=== PATIENT | male | born 1935 | race Caucasian/White ===

== ENCOUNTER 2016-12-28 11:45 | Inpatient (IN) ==
--- NOTE | 2016-12-28 12:16 | Emergency Department Note ---
Disposition Clinical Impression: Influenza, Confusion, Cardiac enzymes elevated Disposition: Admitted As Inpatient Condition: Fair Referrals: Krish Vega MD [Primary Care Provider] - Forms: ED Satisfaction Letter Time of Disposition: 14:08 Fall HPI - General Chief Complaint: ED Fall Stated Complaint: "think he has the flu", fall last pm, hit head Time Seen by Provider: 12/28/16 12:08 Source: patient Mode of arrival: ambulatory Limitations: no limitations Nursing Notes Reviewed: Yes Vital Signs Reviewed: Yes - History of Present Illness HPI Narrative: 81-year-old male who comes in apparently fell last night he was on the toilet leaning forward and fell forward. Patient was brought in by his family he states he doesn't feel he needs to be seen. Patient does not denies any symptoms. However he is talking about he feels that the end is near. He denies suicidal ideation homicidal ideation. There was some concern that he struck his head. Pt Subjective Complaint: fall Onset (ago): hour(s) Fall From: other (Off of toilet) Place Fall Occurred: home Loss of Consciousness: none Prolonged Down Time?: no Symptoms Prior to Fall: none - Related Data Allergies Allergy/AdvReac Type Severity Reaction Status Date / Time No Known Allergies Allergy Verified 12/28/16 12:21 Constitutional: Denies: fever, chills, weakness, weight change Eyes: Denies: eye pain, eye discharge, vision change ENT ED: Denies: ear pain, throat pain, dental pain, hearing loss, epistaxis, congestion, dysphagia Cardiovascular: Denies: chest pain, palpitations, dyspnea on exertion, edema, syncope Respiratory: Denies: cough, dyspnea, wheezes, hemoptysis, stridor Gastrointestinal: Denies: abdominal pain, nausea, vomiting, diarrhea, constipation, hematemesis, melena, hematochezia Genitourinary: Denies: urgency, dysuria, frequency, hematuria Musculoskeletal: Denies: back pain, neck pain, arthralgia, myalgia Integumentary: Denies: rash, abrasion, lesions Neurological: Reports: other (Confusion). Denies: headache, weakness, numbness , paresthesias, confusion, abnormal gait, vertigo Psychiatric: Denies: anxiety, depression, suicidal thoughts, homicidal thoughts , auditory hallucinations, visual hallucinations Endocrine: Denies: fatigue Hematological/Lymphatic: Denies: easy bleeding, easy bruising Allergic/Immunologic: Denies: facial swelling, urticaria Fall PMH - Past Medical History Medical history: Reports: diabetes Psychiatric history: Reports: no psych history - Social History Smoking Status: Former smoker Alcohol use: Reports: none Drug use: Reports: none Physical Exam - General Limitations: no limitations General appearance: alert - Head Head exam: atraumatic, normocephalic, normal inspection - Eye Eye exam: Present: normal appearance, PERRL, EOMI - ENT ENT exam: normal exam, normal oropharynx, mucous membranes moist - Neck Neck exam: Present: normal inspection, full ROM, trachea midline - Chest Chest inspection: Present: normal inspection, symmetric chest wall rise - Respiratory Respiratory exam: Present: normal lung sounds bilaterally - Cardiovascular Cardiovascular exam: Present: regular rate, normal rhythm, normal heart sounds - Abdominal Exam Abdominal exam: Present: soft, Non-Tender. Absent: tenderness, distention, guarding, rebound, rigidity - Extremities Exam Extremities exam: Present: normal inspection, full ROM. Absent: tenderness, pedal edema - Expanded Lower Extremity Exam Neurovascular/Tendon exam: Absent: motor deficit, sensory deficit, tendon deficit - Back Exam Back exam: Present: normal inspection, full ROM. Absent: tenderness - Neurological Exam Neurological exam: Present: alert, oriented X3 - Psychiatric Psychiatric exam: Present: normal affect, normal mood - Skin Skin exam: Present: warm, dry, intact, normal color Course - Reevaluation(s) Reevaluation #1: This is an 81-year-old who apparently fell off the toilet last night. Family states he has been acting right knee feeling may have the flu. Workup here in emergency department CT scan of the head was negative chest x-ray clear. KG shows no acute changes. His troponin is elevated 0.11 with a normal renal function. Patient denies chest pain. Flu swab was positive for influenza Time: 14:05 - Consultations Consultation #1: Discussed with Dr. Quintana, admit. Time: 14:05 Vital Signs Temperature 98.0 F 12/28/16 11:52 Pulse Rate 65 12/28/16 11:52 Respiratory Rate 15 12/28/16 11:52 Blood Pressure 128/67 12/28/16 11:52 O2 Sat by Pulse Oximetry 99 12/28/16 11:52 Temperature 98.0 F 12/28/16 11:52 Pulse Rate 71 12/28/16 13:54 Respiratory Rate 14 12/28/16 13:54 Blood Pressure 120/60 12/28/16 13:54 O2 Sat by Pulse Oximetry 93 L 12/28/16 13:54 Oxygen Delivery Oxygen Delivery Room Air Fall - Lab Data Lab results reviewed: Yes I reviewed the patient's lab results. Result diagrams: 12/28/16 13:22 12/28/16 13:22 Lab Results 12/28/16 12/28/16 12/28/16 Range/Units 13:22 13:22 13:22 WBC 5.4 (4.3-11.1) K/mcL RBC 4.41 (4.19-5.50) M/mcL Hgb 13.4 (12.9-16.9) g/dL Hct 41.7 (37.5-50.1) % MCV 94.6 (83.0-100.0) fL MCH 30.4 (28.0-33.3) pg MCHC 32.1 (31.6-35.5) g/dL RDW 14.7 H (11.5-14.5) % Plt Count 117 L (140-400) K/mcL MPV 10.3 (9.4-12.4) fL Immature Gran % 0.4 (0-4) % Seg Neutrophils % 72.8 % Lymphocytes % 14.2 % Monocytes % 12.4 % Eosinophils % 0.0 % Basophils % 0.2 % Neutrophils # 4.0 (1.6-8.9) K/mcL Lymphocytes # 0.8 (0.6-4.6) K/mcL Monocytes # 0.7 (0.0-1.3) K/mcL Eosinophils # 0.0 (0.0-0.6) K/mcL Basophils # 0.0 (0.0-0.2) K/mcL Sodium 141 (136-145) mEq/L Potassium 4.1 (3.5-4.5) mEq/L Chloride 105 (98-109) mEq/L Carbon Dioxide 28 (19-29) mEq/L BUN 20 (8-26) mg/dL Creatinine 1.11 (0.72-1.25) mg/dL Est GFR ( Amer) > 60 (> 60) Est GFR (Non-Af Amer) > 60 (> 60) BUN/Creatinine Ratio 18 (6-26) Glucose 153 H (70-99) mg/dL Calculated Osmolality 298 (280-300) Calcium 9.0 (8.6-10.8) mg/dL Troponin I 0.11 H* (0-0.03) ng/mL - Radiology Data Radiology results reviewed: Yes I reviewed the patient's radiology results. Chest X-Ray 12/28/16 12:09 IMPRESSION: No acute cardiopulmonary process. D/ / Tereso Sesay MD / Tereso Sesay MD Interpreting Provider: Tereso Sesay MD Head CT 12/28/16 12:09 IMPRESSION: No acute intracranial abnormality. Periventricular white matter ischemic changes. D/ / Sebastian Patrick MD / Sebastian Patrick MD Interpreting Provider: Sebastian Patrick MD - EKG Data EKG attestation: Yes I reviewed and interpreted this EKG. EKG shows normal: sinus rhythm Rate: normal Rhythm: NSR Interpretation: no acute changes
[2016-12-28 13:28] LABS: Basophils % 0.2 %; Hematocrit 41.7 % (37.5-50.1); Hemoglobin 13.4 g/dL (12.9-16.9); Immature Granulocytes % 0.4 % (0-4); Lymphocytes # 0.8 K/mcL (0.6-4.6); Lymphocytes % 14.2 %; Mean Corpuscular HGB Conc 32.1 g/dL (31.6-35.5); Mean Corpuscular Hemoglobin 30.4 pg (28.0-33.3); Mean Corpuscular Volume 94.6 fL (83.0-100.0); Mean Platelet Volume 10.3 fL (9.4-12.4); Monocytes # 0.7 K/mcL (0.0-1.3); Monocytes % 12.4 %; Platelet Count 117 K/mcL (140-400); Red Blood Count 4.41 M/mcL (4.19-5.50); Red Cell Distribution Width 14.7 % (11.5-14.5); Segmented Neutrophils % 72.8 %
[2016-12-28 13:43] LABS: BUN/Creatinine Ratio 18 (6-26); Blood Urea Nitrogen 20 mg/dL (8-26); Carbon Dioxide 28 mEq/L (19-29); Chloride 105 mEq/L (98-109); Glucose 153 mg/dL (70-99); Osmolality,Calculated 298 (280-300); Potassium 4.1 mEq/L (3.5-4.5); Sodium 141 mEq/L (136-145); eGFR For African Americans > 60 (> 60); eGFR For Non-African Americans > 60 (> 60)
[2016-12-28] MEDS ORDERED: Aspirin 81 MG TAB.CHEW PO ONE (14:03)
[2016-12-28] MEDS ORDERED: 0.9 % Sodium Chloride 1,000 ML IVC SCH (16:30)
--- NOTE | 2016-12-28 16:33 | Internal Med History&Physical ---
Date of Encounter: 12/28/16 Time of Encounter: 16:29 Assessment and Plan (1) NSTEMI (non-ST elevated myocardial infarction) Current visit: Yes Status: Acute Patient mentioned that he has chest pain only when he coughs. EKG shows no ischemic changes. He is denying active chest pain during my interview. Continue aspirin and beta blockers. Serial troponin. Cardiology services see the patient. Because of head trauma I am reluctant to start the patient on heparin, Especially that his pain appears non-anginal. Telemetry monitoring. code status yet to be determined (2) Acute bronchitis Current visit: Yes Status: Acute I will keep the patient on azithromycin 500 mg daily Qualifiers: Qualified Code(s): J20.9 - Acute bronchitis, unspecified (3) Influenza Current visit: Yes Status: Acute Tamiflu will be started 75 mg twice a day for 5 days Internal Medicine - H&P: HPI Chief complaint: fall History of present illness: Mr. Price is a 81 year old male with a history of dementia presents to the emergency room today because of a fall. Yesterday reportedly patient on the fall in the bathroom with head trauma. Patient has been sick the past 2 days. Family noted that he has been having productive cough. They also noted that he was warm to touch and more confused than usual. He mentioned that he is having chest pain only when he coughs. No reported history of coronary artery disease. Family mentioned that daughter and grandson were sick. Past Med Surg Social Fam HX - Past Medical History Medical history: diabetes Psychiatric history: no psych history - Social History Smoking Status: Former smoker Smokeless Tobacco Status: No Alcohol use: none Drug use: none Internal Medicine - H&P: Meds Atenolol [Tenormin] 75 mg PO DAILY 12/28/16 [History] Atorvastatin [Lipitor] 40 mg PO HS 12/28/16 [History] Cinnamon Bark [Cinnamon] 500 mg PO BID 12/28/16 [History] Donepezil [Aricept] 10 mg PO HS 12/28/16 [History] Memantine HCl 10 mg PO DAILY 12/28/16 [History] Pantoprazole Sodium [Protonix] 40 mg PO DAILY 12/28/16 [History] Sertraline [Zoloft] 50 mg PO DAILY 12/28/16 [History] Allergies No Known Allergies Allergy (Verified 12/28/16 12:21) All Systems PM: A 10-system review of systems was performed and is negative for pertinent findings except as documented above in the HPI. Review of systems: 10 point review of systems is negative except for HPI. - Constitutional Vitals: Temp Pulse Resp BP Pulse Ox 98.0 F 71 12 108/55 93 L 12/28/16 11:52 12/28/16 13:54 12/28/16 15:46 12/28/16 15:46 12/28/16 13:54 Exam: Gen.: patient is alert and oriented times 3 not in distress. Cardiac: normal S1 S2 no additional sounds or murmur. Chest: coarse breath sounds, no bronchial breathing abdomen: soft nontender nondistended normal bowel sounds no focal neurological deficits lower extremity lax calf muscles no swelling Internal Med - H&P Results - Labs CBC & Chem 7: 12/28/16 13:22 12/28/16 13:22
[2016-12-28] MEDS ORDERED: Azithromycin 500 MG in D5% in Water 250 ML IVPB SCH (17:00)
[2016-12-28] MEDS: Oseltamivir Phosphate 30 MG CAPSULE PO SCH (20:38)
[2016-12-28] MEDS ORDERED: Furosemide 40 MG/4 ML VIAL IVP ONE (23:35)
[2016-12-29 02:28] LABS: Basophils % 0.2 %; Hematocrit 41.5 % (37.5-50.1); Hemoglobin 13.3 g/dL (12.9-16.9); Immature Granulocytes % 0.2 % (0-4); Lymphocytes # 0.3 K/mcL (0.6-4.6); Lymphocytes % 4.9 %; Mean Corpuscular Hemoglobin 29.9 pg (28.0-33.3); Mean Corpuscular Volume 93.3 fL (83.0-100.0); Mean Platelet Volume 11.2 fL (9.4-12.4); Monocytes # 0.6 K/mcL (0.0-1.3); Monocytes % 8.7 %; Neutrophils # 5.4 K/mcL (1.6-8.9); Platelet Count 111 K/mcL (140-400); Red Blood Count 4.45 M/mcL (4.19-5.50); Red Cell Distribution Width 14.6 % (11.5-14.5)
[2016-12-29 02:43] LABS: BUN/Creatinine Ratio 18 (6-26); Blood Urea Nitrogen 22 mg/dL (8-26); Calcium 8.7 mg/dL (8.6-10.8); Carbon Dioxide 23 mEq/L (19-29); Chloride 104 mEq/L (98-109); Glucose 174 mg/dL (70-99); Magnesium 1.7 mg/dL (1.6-2.6); Osmolality,Calculated 300 (280-300); Potassium 3.6 mEq/L (3.5-4.5); Sodium 141 mEq/L (136-145); eGFR For African Americans > 60 (> 60); eGFR For Non-African Americans 58 (> 60)
[2016-12-29 02:52] LABS: Large Platelets Present (Not Present); Platelet Estimate Normal (Normal)
[2016-12-29] MEDS: Aspirin Enteric Coated 325 MG Tablet PO SCH (07:39)
[2016-12-29] MEDS: Levofloxacin 750 MG/150 ML 750 MG/150 ML BAG IVPB SCH (07:40)
[2016-12-29] MEDS: Oseltamivir Phosphate 30 MG CAPSULE PO SCH ×2 (07:40→20:03)
--- NOTE | 2016-12-29 09:22 | Cardiology Consult Note ---
<Andrew Jordan - Last Filed: 12/29/16 09:43> Date of Encounter: 12/29/16 Time of Encounter: 09:20 Assessment and Plan (1) Cardiac enzymes elevated Current Visit: Yes Status: Acute Likely due to elevated CPK. Repeat labs and continue fluid resuscitation. Echocardiogram today Repeat EKG if chest pain. (2) Confusion Current Visit: Yes Status: Acute Baseline. Management per primary. (3) Influenza Current Visit: Yes Status: Acute Tamiflu started by primary team. Management per primary. (4) Fall Current Visit: Yes Status: Acute Likely due to weakness, but will obtain Echocardiogram today. Qualifiers: Encounter type: initial encounter Qualified Code(s): W19.XXXA - Unspecified fall, initial encounter Discussion w patient/family: The assessment and plan as outlined above was discussed with the patient and/or family members who expressed understanding and agreement. All questions were answered. Thank you for involving us in the care of your patient. Please call with any questions. History of Present Illness Consult date: 12/29/16 Requesting physician: Ino Jack Consult reason: Elevated Cardiac Enzymes Chief complaint: Fall History of present illness: Mr. Price is a 81 year old male with history of diabetes, HTN, and dementia arrived to [facility] after sustaining a fall while sitting on toilet. Unknown down time. Patient's family brought patient to ED. There were concerns that the patient had not been feeling well and had been acting more confused for roughly 48 hours prior. Known exposure to to sick contacts. Patient admits to intermittent chest pain only illicited by cough and palpations. Denies any other chest pain or complaints other than "not feeling well". Patient has no known CAD or SD according to record or patient history. No recent Echo on record. No increase in exercise dyspnea or chest pain. Patient found to have elevated troponin in ED at 0.11 in ED which remained stable overnight with 2 more repeats. CPK remains elevated at 1300 today. Past Med Surg Social Fam HX - Past Medical History Attestation: Yes The following information was validated with the patient. Source: old records reviewed Medical history: diabetes Psychiatric history: no psych history - Past Surgical History Surgical History: appendectomy - Social History Smoking Status: Former smoker Smokeless Tobacco Status: No Alcohol use: none Drug use: none Medications and Allergies Atenolol [Tenormin] 75 mg PO DAILY 12/28/16 [History] Atorvastatin [Lipitor] 40 mg PO HS 12/28/16 [History] Cinnamon Bark [Cinnamon] 500 mg PO BID 12/28/16 [History] Donepezil [Aricept] 10 mg PO HS 12/28/16 [History] Memantine HCl 10 mg PO DAILY 12/28/16 [History] Pantoprazole Sodium [Protonix] 40 mg PO DAILY 12/28/16 [History] Sertraline [Zoloft] 50 mg PO DAILY 12/28/16 [History] Allergies No Known Allergies Allergy (Verified 12/28/16 12:21) All Systems Review: A 10-system review of systems was performed and is negative for pertinent findings except as documented above in the HPI. - Constitutional Constitutional: fatigue - Respiratory Respiratory: cough Physical Examination Vital Signs, Last 4 Hours Temp Pulse Resp BP Pulse Ox 12/29/16 07:41 98.9 F 84 16 98/54 94 L General: Conversant, No Apparent Distress HEENT: Atraumatic, Mucus Membranes Moist Neck: No JVD Cardiac: Reg Rate and Rhythm, Normal S1 and S2, No Murmur Lungs: Other (Coarse breath sounds bilaterally) Neuro: Alert and responsive Abdomen: Soft, Non-Tender Skin: No rashes noted on visualized skin Musculoskeletal: Other (Mild costosternal tenderness bilaterally) Extremities: No Clubbing, No Cyanosis, No Edema Results 12/29/16 01:58 12/29/16 01:58 Lab Results 12/28/16 12/29/16 12/29/16 18:37 01:58 01:58 WBC 6.3 Hgb 13.3 Hct 41.5 Plt Count 111 L Sodium 141 Potassium 3.6 Chloride 104 Carbon Dioxide 23 BUN 22 Creatinine 1.20 Glucose 174 H Calcium 8.7 Magnesium 1.7 Troponin I 0.12 H* 12/29/16 01:58 WBC Hgb Hct Plt Count Sodium Potassium Chloride Carbon Dioxide BUN Creatinine Glucose Calcium Magnesium Troponin I 0.11 H* - Imaging and Cardiology Chest Xray: report reviewed, image reviewed Echo: pending - EKG Interpretation EKG results cardiology: personally reviewed, normal ECG, sinus rhythm, no diagnostic ischemia Consult Discharge Plan - Plan Referrals: Krish Vega MD [Primary Care Provider] - 01/06/17 2:40 pm - Attending Attestation I examined this patient and my medical decision-making was reviewed with the Resident Physician. I agree with the documented findings, disposition and treatment plan as described except to the extent set forth below. <Marta Sahu - Last Filed: 12/29/16 15:34> Date of Encounter: 12/29/16 Assessment and Plan Discussion w patient/family: The assessment and plan as outlined above was discussed with the patient and/or family members who expressed understanding and agreement. All questions were answered. Thank you for involving us in the care of your patient. Please call with any questions. History of Present Illness History of present illness: Mr. Price is a 81 year old male All Systems Review: A 10-system review of systems was performed and is negative for pertinent findings except as documented above in the HPI. Physical Examination Vital Signs, Last 4 Hours Temp Pulse Resp BP Pulse Ox 12/29/16 11:29 97.9 F 63 20 101/59 97 Results 12/29/16 01:58 12/29/16 01:58 Lab Results 12/28/16 12/29/16 12/29/16 18:37 01:58 01:58 WBC 6.3 Hgb 13.3 Hct 41.5 Plt Count 111 L Sodium 141 Potassium 3.6 Chloride 104 Carbon Dioxide 23 BUN 22 Creatinine 1.20 Glucose 174 H Calcium 8.7 Magnesium 1.7 Troponin I 0.12 H* 12/29/16 01:58 WBC Hgb Hct Plt Count Sodium Potassium Chloride Carbon Dioxide BUN Creatinine Glucose Calcium Magnesium Troponin I 0.11 H* - Attending Attestation I examined this patient and my medical decision-making was reviewed with the SNAP SHEARER/PA/Advanced Practice Nurse/Resident Physician. I agree with the documented findings, disposition and treatment plan. Mr. Price presented with confusion, fall with unknown downtime. His CPK is elevated suggesting increased down time and myositis. Incidentally, also has mild, flat and adynamic elevation of troponin most consistent with the fall and demand ischemia. We are awaiting an echo for review of structure/function. Telemetry was reviewed which demonstrates no findings that would suggest a cause for his fall.
--- NOTE | 2016-12-29 09:51 | Internal Med Progress Note ---
Date of Encounter: 12/29/16 Time of Encounter: 08:45 - Assessment and plan (1) Influenza Current Visit: Yes Status: Acute Assessment and plan: Positive for FLu A. Continue Tamiflu. On examination, patient appears dehydrated. We will initiate IV fluids. There appears to have been Some concern overnight for possible aspiration versus fluid overload as the patient' s IV fluids were stopped and he was given a one-time dose of IV Lasix. Repeat chest x-ray negative. We will initiate IV fluids and add mucolytics and monitor. (2) Acute respiratory failure Current Visit: Yes Status: Acute Assessment and plan: Patient is not on oxygen at home and is currently on 4 L per nasal cannula. We will continue bronchodilators, mucolytics, levofloxacin, and Tamiflu for his flu. Chest x-ray unremarkable. ITS Impressions Chest X-Ray 12/28/16 12:09 IMPRESSION: No acute cardiopulmonary process. D/ / Tereso Sesay MD / Tereso Sesay MD Interpreting Provider: Tereso Sesay MD Chest X-Ray 12/28/16 23:33 IMPRESSION: 1. No acute cardiopulmonary disease. Specifically, no evidence of aspiration. D/ / 12/29/2016 05:23:29 Rosa Dhaliwal MD / [facility]osi Interpreting Provider: Rosa Dhaliwal MD (3) Acute bronchitis Current Visit: Yes Status: Acute (4) Fall Current Visit: Yes Status: Acute Assessment and plan: OT and PT consultations are pending. He currently lives at home with his grandson Benji. Qualifiers: Encounter type: initial encounter Qualified Code(s): W19.XXXA - Unspecified fall, initial encounter (5) Generalized weakness Current Visit: Yes Status: Acute Assessment and plan: During my examination with him, he is alert and oriented 3 however he was unable to control his head and his head was bobbing and falling to the right during most of our conversation. Concern for generalized weakness and possible dysphagia. Speech therapy brought on board. OT and PT consultations placed. We will appreciate their recommendations. Of note, he appears unkempt and they have been to bed bugs found on this patient. director learning services on board. (6) Code status needs review Current Visit: Yes Status: Resolved Assessment and plan: I had a lengthy discussion with the alert and oriented 3 patient. He states that when it is this time, God will take him. He does not want any aggressive measures and he wants to be kept comfortable. Specifically, he does not want to be intubated, does not want chest compressions. Updated to DNR CC. (7) Cardiac enzymes elevated Current Visit: Yes Status: Acute Assessment and plan: Adynamic and stable, cardiology on board. Patient denies chest pain at this time. (8) Confusion Current Visit: Yes Status: Resolved Assessment and plan: Alert and oriented 3 during my interaction with him. Head CT negative. No leukocytosis. Mild hypotension noted, IV fluids initiated. Heart rate stable. ITS Impressions Head CT 12/28/16 12:09 IMPRESSION: No acute intracranial abnormality. Periventricular white matter ischemic changes. D/ / Sebastian Patrick MD / Sebastian Patrick MD Interpreting Provider: Sebastian Patrick MD (9) NSTEMI (non-ST elevated myocardial infarction) Current Visit: Yes Status: Acute Assessment and plan: Low suspicion. Cardiology on board. Appreciate their recommendations. Echocardiogram pending. - Subjective Interval history: Patient seen and examined. On examination, patient sitting upright in bed. Patient initially asleep and awaken easily to voice. He currently denies pain at this time. He denies shortness of breath above his norm. He continues to endorse a harsh hacking cough. - Constitutional Vitals: Temp Pulse Resp BP Pulse Ox 98.9 F 84 16 98/54 94 L 12/29/16 07:41 12/29/16 07:41 12/29/16 07:41 12/29/16 07:41 12/29/16 07:41 General appearance: Present: mild distress, A&O X 3, pleasant, answers questions appropriately - Head Head exam: Present: atraumatic, normocephalic - Eye Eye exam: Present: PERRL, conjuntiva pink, sclera anicteric Pupils: Present: PERRL - Neck Neck exam general surgery: Present: supple, trachea midline. Absent: lymphadenopathy - Respiratory Respiratory exam: Present: decreased breath sounds. Absent: accessory muscle use, rales, respiratory distress, rhonchi, wheezes - Cardiovascular Cardiovascular exam: Present: RRR, +S1, +S2. Absent: diastolic murmur, gallop, rubs, systolic murmur - GI/Abdominal GI/Abdominal exam: Present: normal bowel sounds, soft, no peritoneal signs. Absent: distended, tenderness - Extremities Exam Extremities exam: Present: warm, radial pulses palpable and symetrical. Absent : calf tenderness, cyanotic, pedal edema - Neurological Exam Neurological exam: Present: alert, CN II-XII intact, oriented X3, no focal deficits, strengths equal and symetr throughout. Absent: pronater drift, facial droop, speech deficit - Skin Skin exam: Present: dry, intact, pallor, warm Internal Medicine: Result - Labs CBC & Chem 7: 12/29/16 01:58 12/29/16 01:58 Labs: Short CBC 12/29/16 Range/Units 01:58 WBC 6.3 (4.3-11.1) K/mcL Hgb 13.3 (12.9-16.9) g/dL Hct 41.5 (37.5-50.1) % Plt Count 111 L (140-400) K/mcL Neutrophils # 5.4 (1.6-8.9) K/mcL BMP 12/29/16 01:58 Sodium 141 Potassium 3.6 Chloride 104 Carbon Dioxide 23 BUN 22 Creatinine 1.20 Glucose 174 H Calcium 8.7 Cardiac Enzymes 12/28/16 12/29/16 Range/Units 18:37 01:58 Troponin I 0.12 H* 0.11 H* (0-0.03) ng/mL - Impressions Impressions Chest X-Ray 12/28/16 23:33 IMPRESSION: 1. No acute cardiopulmonary disease. Specifically, no evidence of aspiration. D/ / 12/29/2016 05:23:29 Rosa Dhaliwal MD / [email or web address] Interpreting Provider: Rosa Dhaliwal MD - VTE Documentation of Mechanical Device: Intermittent pneumatic compression device Consult Discharge Plan - Plan Referrals: Krish Vega MD [Primary Care Provider] - 01/06/17 2:40 pm
[2016-12-29 10:15] LABS: Bilirubin,Urine Negative (Negative); Blood,Urine Trace (Negative); Clarity,Urine Cloudy (Clear); Color,Urine Yellow (Yellow); Glucose,Urine (UA) Normal (Normal); Ketones,Urine Trace mg/dL (Negative); Leukocyte Esterase,Urine Small (Negative); Nitrite,Urine Negative (Negative); PH,Urine 5.5 pH Units (5.0-8.0); Protein,Urine Trace mg/dL (Neg-Trace); Specific Gravity,Urine 1.014 (1.010-1.025); Urobilinogen,Urine Normal (Normal)
[2016-12-29 10:18] LABS: Bacteria,Urine None Seen per hpf (None-Few); Hyaline Casts,Urine None Seen per lpf (None-Few); Squamous Epithelial Cell,Urine Many per lpf (None-Few)
[2016-12-29] MEDS ORDERED: Benzonatate 100 MG CAPSULE PO PRN (10:38)
[2016-12-29] MEDS ORDERED: Acetaminophen 325 MG TABLET PO PRN (10:39)
[2016-12-29] MEDS ORDERED: *HR* Morphine 2 MG/ML SYRINGE IVP PRN (10:39)
[2016-12-29] MEDS: 0.9 % Sodium Chloride 1,000 ML IVC SCH ×2 (10:53→20:03)
[2016-12-29] MEDS ORDERED: Perflutren Lipid Microsphere 1.3 ML in 0.9 % Sodium Chloride 8.7 ML IVP ONE (17:13)
[2016-12-30 05:23] LABS: Hematocrit 35.1 % (37.5-50.1); Hemoglobin 11.3 g/dL (12.9-16.9); Immature Platelets 9.8 % (1.1-6.1); Mean Corpuscular HGB Conc 32.2 g/dL (31.6-35.5); Mean Corpuscular Volume 93.1 fL (83.0-100.0); Mean Platelet Volume 11.6 fL (9.4-12.4); Red Blood Count 3.77 M/mcL (4.19-5.50); Red Cell Distribution Width 14.5 % (11.5-14.5)
[2016-12-30 05:47] LABS: Platelet Count 93 K/mcL (140-400)
[2016-12-30 05:50] LABS: Lymphocytes # 0.8 K/mcL (0.6-4.6); Monocytes # 0.1 K/mcL (0.0-1.3); Neutrophils # 5.7 K/mcL (1.6-8.9); Platelet Estimate Decreased (Normal)
[2016-12-30 05:51] LABS: Large Platelets Present (Not Present); Reactive Lymphocytes Present (Not Present)
[2016-12-30 05:57] LABS: BUN/Creatinine Ratio 22 (6-26); Blood Urea Nitrogen 21 mg/dL (8-26); Calcium 8.4 mg/dL (8.6-10.8); Carbon Dioxide 29 mEq/L (19-29); Chloride 105 mEq/L (98-109); Glucose 99 mg/dL (70-99); Osmolality,Calculated 293 (280-300); Potassium 3.4 mEq/L (3.5-4.5); Sodium 140 mEq/L (136-145); eGFR For African Americans > 60 (> 60); eGFR For Non-African Americans > 60 (> 60)
[2016-12-30] MEDS: Levofloxacin 750 MG/150 ML 750 MG/150 ML BAG IVPB SCH (07:20)
--- NOTE | 2016-12-30 07:21 | ECHO - Doppler Report ---
Echo with Imaging Enhancement Agent Name: Louis Price Date of Study: 12/29/2016 Date: 1935 Ht: 64.0 in Medical Record#: [id number] Age: 81 Wt: 180.0 lb Gender: Male BSA: 1.87 Order #: [id number] Location: [facility] Room #: 3B12 Reading Physician: Pipo Narayan MD, [facility] Mechan[employer] Supervisor: Nellie Vargas RVT Ordering Physician: Andrew Jordan DO Primary Physician: Krish Vega MD Indications: Elevated cardiac enzymes Impressions: Technically sub-optimal due to poor echocardiographic windows. Echo contrast was used. Normal left ventricular size and systolic function, LVEF 60-65%. Mild left ventricular diastolic dysfunction. Right ventricle was not well visualized. Appears grossly normal in size and function. Cardiac valves were not well visualized. No evidence of significant valvular dysfunction. Unable to estimate RVSP due to lack of TR jet. Left Ventricular Wall Motion: Rest Echo Findings All wall segments showed normal motion. Findings: Study Quality * Technically sub-optimal due to poor echocardiographic windows. Echo contrast was used. ECG Findings * Normal sinus rhythm. Left Ventricle * Normal left ventricular size and systolic function, LVEF 60-65%. * Normal LV wall thickness. * Mild left ventricular diastolic dysfunction. Right Ventricle * Right ventricle was not well visualized. Appears grossly normal in size and function. Left Atrium * Normal left atrial size. Right Atrium * Normal right atrial size. Aorta * Normally sized aortic root. Pericardium * There is no pericardial effusion present. IVC * The IVC is not well evaluated. Aortic Valve * Aortic valve not well visualized. * Normal aortic valve function. Mitral Valve * Mitral valve not well visualized. * Normal mitral valve structure. Tricuspid Valve * Tricuspid valve not well visualized. * Normal tricuspid valve function. * Unable to estimate RVSP due to lack of TR jet. Pulmonic Valve * Pulmonic valve not well visualized. * Normal pulmonic valve function. History Hypertension Diabetes Contrast: Definity 1.3 ml in 8.7 ml of saline 2 ml. Measurements: BP: 119/ 63 2D Normal Values RVIDd: 3.20 cm IVSd: .90 cm 0.6 - 1.0 cm LVIDd: 4.90 cm 3.7 - 5.6 cm LVPWd: .90 cm 0.6 - 1.1 cm LVIDs: 2.70 cm 1.5 - 3.6 cm AO: 3.60 cm < 4.0 cm LA volume: 42 Mitral Valve Peak E:.60 m/sec Peak A:.80 m/sec E/A Ratio:0.75 Updated by Pipo Narayan MD, [facility] on 12/30/2016 7:14:19 AM electronically signed on 12/30/2016 7:15:31 AM with status of Final Wall Motion Jiang: 1=Normal, 2=Hypokinesis, 3=Akinesis, 4=Dyskinesis, 5=Aneurysmal, 6=Hyperkinetic, X=Not Visualized (Blank)=Missing
[2016-12-30] MEDS: Aspirin Enteric Coated 325 MG Tablet PO SCH (07:26)
[2016-12-30] MEDS: Oseltamivir Phosphate 30 MG CAPSULE PO SCH ×2 (07:26→20:03)
[2016-12-30 08:29] LABS: Creatine Kinase 1462 Units/L (30-200)
--- NOTE | 2016-12-30 09:28 | Event Note ---
<Andrew Jordan - Last Filed: 12/30/16 09:24> Date of Encounter: 12/30/16 Time of Encounter: 09:24 - Cardiology Event Note Patient's echo reviewed. EF 60-65% with no abnormal wall motion. Mild Left ventricular diastolic failure. Repeat EKG reviewed this AM without major changes from admission EKG. No signs of ischemia noted. Rhythm strips from overnight reviewed without major signs of ischemia or dysrhythmias noted. We do not feel as though this is cardiac in origin. We will sign off care at this time. Please call with any questions or concerns. We appreciate the consult and care for the patient. <Marta Sahu - Last Filed: 12/30/16 13:47> Date of Encounter: 12/30/16 - Cardiology Event Note Agree with Resident's note. Patient's presentation does not appear to be associated with a cardiac etiology. LV systolic function remains normal. Troponins do not represent ACS. We will sign off at this time.
[2016-12-30] MEDS: 0.9 % Sodium Chloride 1,000 ML IVC SCH ×3 (10:26→18:27)
--- NOTE | 2016-12-30 12:07 | Internal Med Progress Note ---
Date of Encounter: 12/30/16 Time of Encounter: 08:30 - Assessment and plan (1) Rhabdomyolysis Current Visit: Yes Status: Acute Assessment and plan: Likely secondary to dehydration and influenza. CK continues to slowly climb, we will increase IV fluids. Awaiting placement for inpatient rehabilitation. There was concern for possible fluid overload during the patient's first night of admission. I personally reviewed the CXR from that night and there were no findings to suggest fluid overload. His echocardiogram revealed ejection fraction of 60-65% with mild diastolic dysfunction. We will increase his IV fluids and monitor closely. (2) Influenza Current Visit: Yes Status: Acute Assessment and plan: Positive for FLu A. Continue Tamiflu. On examination, patient appears dehydrated but better than yesterday; will increase IV fluids. I personally reviewed his chest xray from 12/28/16 late at night and there were no findings to suggest fluid overload. (3) Acute respiratory failure Current Visit: Yes Status: Acute Assessment and plan: Patient is not on oxygen at home and was on 4 L per nasal cannula and has not been titrated down to 2L. we will continue to wean his oxygen as tolerated. We will continue bronchodilators, mucolytics, levofloxacin, and Tamiflu for his flu. Chest x-ray unremarkable. ITS Impressions Chest X-Ray 12/28/16 12:09 IMPRESSION: No acute cardiopulmonary process. D/ / Tereso Sesay MD / Tereso Sesay MD Interpreting Provider: Tereso Sesay MD Chest X-Ray 12/28/16 23:33 IMPRESSION: 1. No acute cardiopulmonary disease. Specifically, no evidence of aspiration. D/ / 12/29/2016 05:23:29 Rosa Dhaliwal MD / [facility] Interpreting Provider: Rosa Dhaliwal MD (4) Acute bronchitis Current Visit: Yes Status: Acute (5) Fall Current Visit: Yes Status: Acute Assessment and plan: OT and PT consultations recommending ECF placement. Patient was initially resistant to however his son Romero was able to convince him to be placed. He currently lives at home with his daughter Kisha and his grandson Benji. Qualifiers: Encounter type: initial encounter Qualified Code(s): W19.XXXA - Unspecified fall, initial encounter (6) Generalized weakness Current Visit: Yes Status: Acute Assessment and plan: During my examination with him, he is alert and oriented 3 however he was unable to control his head and his head was bobbing and falling to the right during most of our conversation. Concern for generalized weakness and possible dysphagia so speech therapy brought on board and have recommended soft diet with thickened liquids. He is unsafe to be discharged home pending [facility]. Of note, he appears unkempt and they have been to bed bugs found on this patient. transportation services representative on board. (7) Code status needs review Current Visit: Yes Status: Resolved Assessment and plan: I had a lengthy discussion with the alert and oriented 3 patient. He states that when it is this time, God will take him. He does not want any aggressive measures and he wants to be kept comfortable. Specifically, he does not want to be intubated, does not want chest compressions. Updated to DNR CC. (8) Cardiac enzymes elevated Current Visit: Yes Status: Ruled-out Assessment and plan: Adynamic and stable, cardiology on board and have since signed off. Patient denies chest pain at this time. (9) Confusion Current Visit: Yes Status: Resolved Assessment and plan: Alert and oriented 3 during my interaction with him. Head CT negative. No leukocytosis. Mild hypotension noted, IV fluids initiated. Heart rate stable. ITS Impressions Head CT 12/28/16 12:09 IMPRESSION: No acute intracranial abnormality. Periventricular white matter ischemic changes. D/ / Sebastian Patrick MD / Sebastian Patrick MD Interpreting Provider: Sebastian Patrick MD (10) NSTEMI (non-ST elevated myocardial infarction) Current Visit: Yes Status: Resolved Assessment and plan: Low suspicion. Cardiology on board and have signed off. Echocardiogram unremarkable with ejection fraction of 60-65% and mild diastolic dysfunction. Echocardiogram with imaging enhancement agent impressions: Technically suboptimal due to poor echocardiographic windows. Echo contrast was used. Normal left ventricular size and systolic function, LVEF 60-65%. Mild left ventricular diastolic dysfunction. Right ventricle was not well visualized. Appears grossly normal in size and function. Cardiac valves were not well visualized. No evidence of significant valvular dysfunction. Unable to estimate RVSP due to lack of TR jet. - Subjective Interval history: Patient seen and examined. On examination, patient sitting upright in bed eating his breakfast. His son is at the bedside. His son states that he has not had regular contact with his dad but is going to become more involved in his care. Patient denies pain at this time. He states he feels "okay." He is endorsing a normal appetite. He denies shortness of breath. - Constitutional Vitals: Temp Pulse Resp BP Pulse Ox 98.5 F 64 17 105/51 95 12/30/16 11:17 12/30/16 11:17 12/30/16 11:17 12/30/16 11:17 12/30/16 11:17 General appearance: Present: A&O X 3, pleasant, no acute distress, answers questions appropriately - Head Head exam: Present: atraumatic, normocephalic - Eye Eye exam: Present: PERRL, conjuntiva pink, sclera anicteric Pupils: Present: PERRL - Neck Neck exam general surgery: Present: supple, trachea midline. Absent: lymphadenopathy - Respiratory Respiratory exam: Present: CTAB. Absent: accessory muscle use, rales, respiratory distress, rhonchi, wheezes - Cardiovascular Cardiovascular exam: Present: RRR, +S1, +S2. Absent: diastolic murmur, gallop, rubs, systolic murmur - GI/Abdominal GI/Abdominal exam: Present: normal bowel sounds, soft, no peritoneal signs. Absent: distended, tenderness - Extremities Exam Extremities exam: Present: warm, radial pulses palpable and symetrical. Absent : calf tenderness, cyanotic, pedal edema - Neurological Exam Neurological exam: Present: alert, CN II-XII intact, oriented X3, no focal deficits, strengths equal and symetr throughout. Absent: pronater drift, facial droop, speech deficit - Expanded Neurological Exam Neurological exam expanded: Present: tremor - Skin Skin exam: Present: dry, intact, pallor, warm Internal Medicine: Result - Labs CBC & Chem 7: 12/30/16 03:57 12/30/16 03:57 Labs: Short CBC 02/16/17 Range/Units 03:57 WBC 6.6 (4.3-11.1) K/mcL Hgb 11.3 L D (12.9-16.9) g/dL Hct 35.1 L (37.5-50.1) % Plt Count 93 L (140-400) K/mcL Neutrophils # 5.7 (1.6-8.9) K/mcL BMP 12/30/16 03:57 Sodium 140 Potassium 3.4 L Chloride 105 Carbon Dioxide 29 BUN 21 Creatinine 0.95 Glucose 99 Calcium 8.4 L - Impressions Impressions Chest X-Ray 12/28/16 23:33 IMPRESSION: 1. No acute cardiopulmonary disease. Specifically, no evidence of aspiration. D/ / 12/29/2016 05:23:29 Rosa Dhaliwal MD / [facility] Interpreting Provider: Rosa Dhaliwal MD - [facility] Documentation of Mechanical Device: Intermittent pneumatic compression device Consult Discharge Plan - Plan Referrals: Krish Vega MD [Primary Care Provider] - 01/06/17 2:40 pm
[2016-12-30] MEDS: *HR* HYDROcodone/Acet 5/325 mg TABLET PO PRN (15:05)
--- NOTE | 2016-12-30 19:25 | Electrocardiograph Report ---
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
--- NOTE | 2016-12-30 19:38 | Electrocardiograph Report ---
[address] [address] Test Date: 2016-12-28 Pat Name: Louis Price Department: 113 Room: 3B12 Gender: M Research Analyst: : 1935 Requested By: Lisa Cardenas Order Number: [id number] Reading MD: Krish Santoyo Measurements Intervals [place] Rate: 75 P: [place]: 0 QRS: 237 QRSD: 111 T: -66 QT: 421 QTc: 449 Interpretive Statements UNABLE TO BE INTERPRETED Electronically Signed On 12-30-2016 19:36:52 EST by Krish Santoyo
--- NOTE | 2016-12-30 20:07 | Electrocardiograph Report ---
[place] [address] Test Date: 2016-12-30 Pat Name: Louis Price Department: 113 Room: 3B12 Gender: M Client Account Assistant: : 1935 Requested By: Andrew Jordan Order Number: [id number] Reading MD: Krish Santoyo Measurements Intervals [place] Rate: 63 P: 5 CO: 175 QRS: -15 QRSD: 72 T: -2 QT: 433 QTc: 440 Interpretive Statements SINUS RHYTHM LOW QRS VOLTAGE IN EXTREMITY LEADS POSSIBLE INFERIOR MYOCARDIAL INFARCTION, PROBABLY OLD Electronically Signed On 12-30-2016 20:06:10 EST by Krish Santoyo
[2016-12-31] MEDS: 0.9 % Sodium Chloride 1,000 ML IVC SCH ×3 (01:16→18:03)
[2016-12-31 05:41] LABS: Hematocrit 33.3 % (37.5-50.1); Hemoglobin 10.7 g/dL (12.9-16.9); Mean Corpuscular HGB Conc 32.1 g/dL (31.6-35.5); Red Cell Distribution Width 14.2 % (11.5-14.5)
[2016-12-31 05:44] LABS: Immature Platelets 7.9 % (1.1-6.1); Mean Corpuscular Hemoglobin 29.8 pg (28.0-33.3); Mean Corpuscular Volume 92.8 fL (83.0-100.0); Mean Platelet Volume 11.2 fL (9.4-12.4); Red Blood Count 3.59 M/mcL (4.19-5.50)
[2016-12-31 05:49] LABS: BUN/Creatinine Ratio 16 (6-26); Blood Urea Nitrogen 13 mg/dL (8-26); Carbon Dioxide 25 mEq/L (19-29); Chloride 109 mEq/L (98-109); Creatine Kinase 676 Units/L (30-200); Glucose 123 mg/dL (70-99); Magnesium 1.5 mg/dL (1.6-2.6); Osmolality,Calculated 293 (280-300); Potassium 3.7 mEq/L (3.5-4.5); Sodium 141 mEq/L (136-145); eGFR For African Americans > 60 (> 60); eGFR For Non-African Americans > 60 (> 60)
[2016-12-31 05:54] LABS: Platelet Count 95 K/mcL (140-400)
[2016-12-31 06:41] LABS: Lymphocytes # 1.1 K/mcL (0.6-4.6); Monocytes # 0.2 K/mcL (0.0-1.3); Neutrophils # 3.1 K/mcL (1.6-8.9); Platelet Estimate Decreased (Normal)
[2016-12-31 06:42] LABS: Large Platelets Present (Not Present); Reactive Lymphocytes Present (Not Present)
[2016-12-31] MEDS: Levofloxacin 750 MG/150 ML 750 MG/150 ML BAG IVPB SCH (09:37)
[2016-12-31] MEDS: *HR* HYDROcodone/Acet 5/325 mg TABLET PO PRN (09:43)
[2016-12-31] MEDS: Oseltamivir Phosphate 30 MG CAPSULE PO SCH ×2 (09:44→22:26)
[2016-12-31] MEDS: Aspirin Enteric Coated 325 MG Tablet PO SCH (09:44)
--- NOTE | 2016-12-31 10:38 | Internal Med Progress Note ---
Date of Encounter: 12/31/16 Time of Encounter: 08:45 - Assessment and plan (1) Rhabdomyolysis Current Visit: Yes Status: Acute Assessment and plan: Likely secondary to dehydration and influenza. CK has now decreased. Patient is taking a 100% of his meals. IV fluids were increased yesterday, will decrease today. Patient denies pain at this time. No lower extremity edema or signs of fluid overload. Lungs clear. Awaiting placement for inpatient rehabilitation. There was concern for possible fluid overload during the patient's first night of admission. I personally reviewed the CXR from that night and there were no findings to suggest fluid overload. His echocardiogram revealed ejection fraction of 60-65% with mild diastolic dysfunction. (2) Influenza Current Visit: Yes Status: Acute Assessment and plan: Positive for FLu A. Continue Tamiflu. On examination, patient appears better hydrated and is eating 100% of his meals. Awaiting placement to inpatient rehabilitation. He should not safe to be discharged in the meantime given elevated risk of fall (3) Acute respiratory failure Current Visit: Yes Status: Acute Assessment and plan: Patient is not on oxygen at home and was on 4 L per nasal cannula and has not been titrated down to 2L. we will continue to wean his oxygen as tolerated. We will continue bronchodilators, mucolytics, levofloxacin, and Tamiflu for his flu. Chest x-ray unremarkable. ITS Impressions Chest X-Ray 12/28/16 12:09 IMPRESSION: No acute cardiopulmonary process. D/ / Tereso Sesay MD / Tereso Sesay MD Interpreting Provider: Tereso Sesay MD Chest X-Ray 12/28/16 23:33 IMPRESSION: 1. No acute cardiopulmonary disease. Specifically, no evidence of aspiration. D/ / 12/29/2016 05:23:29 Rosa Dhaliwal MD / [facility] Interpreting Provider: Rosa Dhaliwal MD (4) Acute bronchitis Current Visit: Yes Status: Acute (5) Fall Current Visit: Yes Status: Acute Assessment and plan: OT and PT consultations recommending ECF placement. Patient was initially resistant to however his son Romero was able to convince him to be placed. He currently lives at home with his daughter Kisha and his grandson Benji. Given his acute influenza and rhabdo suspicion, patient will need to remain inpatient and admitted pending placement. Qualifiers: Encounter type: initial encounter Qualified Code(s): W19.XXXA - Unspecified fall, initial encounter (6) Generalized weakness Current Visit: Yes Status: Acute Assessment and plan: During my examination with him, he is alert and oriented 3 however he was unable to control his head and his head was bobbing and falling to the right during most of our conversation. Concern for generalized weakness and possible dysphagia so speech therapy brought on board and have recommended soft diet with thickened liquids. He is unsafe to be discharged home pending placement to [facility]. Of note, he appears unkempt and they have been to bed bugs found on this patient. guest services director on board. (7) Code status needs review Current Visit: Yes Status: Resolved Assessment and plan: I had a lengthy discussion with the alert and oriented 3 patient. He states that when it is this time, God will take him. He does not want any aggressive measures and he wants to be kept comfortable. Specifically, he does not want to be intubated, does not want chest compressions. Updated to DNR CC. (8) Cardiac enzymes elevated Current Visit: Yes Status: Ruled-out Assessment and plan: Adynamic and stable, cardiology on board and have since signed off. Patient denies chest pain at this time. (9) Confusion Current Visit: Yes Status: Resolved Assessment and plan: Alert and oriented 3 during my interaction with him. Head CT negative. No leukocytosis. Mild hypotension noted, IV fluids continued. Heart rate stable. ITS Impressions Head CT 12/28/16 12:09 IMPRESSION: No acute intracranial abnormality. Periventricular white matter ischemic changes. D/ / Sebastian Patrick MD / Sebastian Patrick MD Interpreting Provider: Sebastian Patrick MD (10) NSTEMI (non-ST elevated myocardial infarction) Current Visit: Yes Status: Resolved Assessment and plan: Low suspicion. Cardiology on board and have signed off. Echocardiogram unremarkable with ejection fraction of 60-65% and mild diastolic dysfunction. Echocardiogram with imaging enhancement agent impressions: Technically suboptimal due to poor echocardiographic windows. Echo contrast was used. Normal left ventricular size and systolic function, LVEF 60-65%. Mild left ventricular diastolic dysfunction. Right ventricle was not well visualized. Appears grossly normal in size and function. Cardiac valves were not well visualized. No evidence of significant valvular dysfunction. Unable to estimate RVSP due to lack of TR jet. - Subjective Interval history: Patient seen and examined. On examination, patient sitting upright in bed eating his breakfast. He denies pain at this time. He denies shortness of breath. - Constitutional Vitals: Temp Pulse Resp BP Pulse Ox 97.4 F L 61 20 104/59 95 12/31/16 09:02 12/31/16 09:02 12/31/16 09:02 12/31/16 09:02 12/31/16 09:02 General appearance: Present: A&O X 3, pleasant, no acute distress, answers questions appropriately - Head Head exam: Present: atraumatic, normocephalic - Eye Eye exam: Present: PERRL, conjuntiva pink, sclera anicteric Pupils: Present: PERRL - Neck Neck exam general surgery: Present: supple, trachea midline. Absent: lymphadenopathy - Respiratory Respiratory exam: Present: decreased breath sounds. Absent: accessory muscle use, rales, respiratory distress, rhonchi, wheezes - Cardiovascular Cardiovascular exam: Present: RRR, +S1, +S2. Absent: diastolic murmur, gallop, rubs, systolic murmur - GI/Abdominal GI/Abdominal exam: Present: distended, hyperactive bowel sounds, soft, no peritoneal signs. Absent: tenderness - Extremities Exam Extremities exam: Present: warm, radial pulses palpable and symetrical. Absent : calf tenderness, cyanotic, pedal edema - Neurological Exam Neurological exam: Present: alert, CN II-XII intact, oriented X3, no focal deficits, strengths equal and symetr throughout. Absent: pronater drift, facial droop, speech deficit - Skin Skin exam: Present: dry, intact, pallor, warm Internal Medicine: Result - Labs CBC & Chem 7: 12/31/16 05:12 12/31/16 05:12 Labs: Short CBC 12/31/16 Range/Units 05:12 WBC 4.4 (4.3-11.1) K/mcL Hgb 10.7 L (12.9-16.9) g/dL Hct 33.3 L (37.5-50.1) % Plt Count 95 L (140-400) K/mcL Neutrophils # 3.1 (1.6-8.9) K/mcL BMP 12/31/16 05:12 Sodium 141 Potassium 3.7 Chloride 109 Carbon Dioxide 25 BUN 13 Creatinine 0.83 Glucose 123 H Calcium 8.0 L - VTE Documentation of Mechanical Device: Intermittent pneumatic compression device Consult Discharge Plan - Plan Referrals: Krish Vega MD [Primary Care Provider] - 01/06/17 2:40 pm
[2016-12-31 20:06] LABS: CK-BB (CK isoenzymes) 0 % (0-0); CK-MB (CK isoenzymes) 0 % (0-4); CK-MM (CK-isoenzymes) 100 % (96-100)
[2016-12-31 20:06] LABS: CK-BB (CK isoenzymes) 0 % (0-0); CK-MB (CK isoenzymes) 0 % (0-4); CK-MM (CK-isoenzymes) 100 % (96-100)
[2017-01-01 04:14] LABS: Basophils % 0.2 %; Eosinophils % 0.2 %; Immature Granulocytes % 0.7 % (0-4); Mean Platelet Volume 11.3 fL (9.4-12.4); Red Cell Distribution Width 14.2 % (11.5-14.5)
[2017-01-01 04:16] LABS: Hematocrit 34.1 % (37.5-50.1); Immature Platelets 7.3 % (1.1-6.1); Lymphocytes # 0.8 K/mcL (0.6-4.6); Lymphocytes % 19.6 %; Mean Corpuscular HGB Conc 32.3 g/dL (31.6-35.5); Mean Corpuscular Hemoglobin 30.1 pg (28.0-33.3); Mean Corpuscular Volume 93.2 fL (83.0-100.0); Monocytes # 0.3 K/mcL (0.0-1.3); Monocytes % 6.5 %; Neutrophils # 3.1 K/mcL (1.6-8.9); Platelet Count 103 K/mcL (140-400); Red Blood Count 3.66 M/mcL (4.19-5.50); Segmented Neutrophils % 72.8 %
[2017-01-01 04:43] LABS: BUN/Creatinine Ratio 14 (6-26); Blood Urea Nitrogen 11 mg/dL (8-26); Calcium 8.1 mg/dL (8.6-10.8); Carbon Dioxide 24 mEq/L (19-29); Chloride 109 mEq/L (98-109); Glucose 134 mg/dL (70-99); Osmolality,Calculated 293 (280-300); Potassium 4.1 mEq/L (3.5-4.5); Sodium 141 mEq/L (136-145); eGFR For African Americans > 60 (> 60); eGFR For Non-African Americans > 60 (> 60)
[2017-01-01 05:13] LABS: Platelet Estimate Decreased (Normal)
[2017-01-01 05:14] LABS: Polychromasia 1+ (Not Present)
[2017-01-01 05:16] LABS: Ovalocytes 1+ (Not Present); Reactive Lymphocytes Present (Not Present); Tear Drop Cells 1+ (Not Present)
[2017-01-01] MEDS: levoFLOXacin 750 MG TABLET PO SCH (09:18)
[2017-01-01] MEDS: Oseltamivir Phosphate 30 MG CAPSULE PO SCH ×2 (09:18→20:34)
[2017-01-01] MEDS: Aspirin Enteric Coated 325 MG Tablet PO SCH (09:18)
[2017-01-01] MEDS: 0.9 % Sodium Chloride 1,000 ML IVC SCH (09:19)
--- NOTE | 2017-01-01 15:08 | Internal Med Progress Note ---
Date of Encounter: 01/01/17 Time of Encounter: 15:05 - Assessment and plan (1) Acute respiratory failure Current Visit: Yes Status: Acute Assessment and plan: related to underlying acute bronchitis, Influenza A infection; wean down FiO2 as tolerated; currently requires 2L/min NC; will start saline nasal spray for epistaxis; Qualifiers: Respiratory failure complication: hypoxia Qualified Code(s): J96.01 - Acute respiratory failure with hypoxia (2) Generalized weakness Current Visit: Yes Status: Chronic Assessment and plan: due to underlying infection, Influenza and elderly age; PT evaluation noted, recommend SNF placement; pending discharge in am; (3) Influenza Current Visit: Yes Status: Acute Assessment and plan: continue Tamiflu to complete course; (4) Rhabdomyolysis Current Visit: Yes Status: Acute Assessment and plan: serum CK trending down significantly; improved symptoms; continue IV hydration while he is in house; monitor urine output; Qualifiers: Rhabdomyolysis type: non-traumatic Qualified Code(s): M62.82 - Rhabdomyolysis - Subjective Interval history: Has left-sided nose bleed, now controlled; reports he often has had them, over the last few years; no cough, dyspnea, nasal pain, chest pain; tolerates diet; awaiting rehab placement; - Constitutional Vitals: Temp Pulse Resp BP Pulse Ox 98.1 F 72 18 138/77 91 L 01/01/17 14:46 01/01/17 14:46 01/01/17 14:46 01/01/17 14:46 01/01/17 14:46 General appearance: Present: A&O X 3, answers questions appropriately - ENT Additional comments: controlled active epistaxis on left side; noted to be on humidified O2; - Respiratory Respiratory exam: Present: CTAB (scattered rhonchi intermittently). Absent: accessory muscle use, rales, rhonchi, wheezes - Cardiovascular Cardiovascular exam: Present: RRR, +S1, +S2. Absent: diastolic murmur, gallop, rubs, systolic murmur - GI/Abdominal GI/Abdominal exam: Present: normal bowel sounds, soft, no peritoneal signs. Absent: distended, tenderness Internal Medicine: Result - Labs CBC & Chem 7: 01/01/17 03:59 01/01/17 03:59 Labs: Short CBC 01/01/17 Range/Units 03:59 WBC 4.3 (4.3-11.1) K/mcL Hgb 11.0 L (12.9-16.9) g/dL Hct 34.1 L (37.5-50.1) % Plt Count 103 L (140-400) K/mcL Neutrophils # 3.1 (1.6-8.9) K/mcL [facility] 01/01/17 03:59 Sodium 141 Potassium 4.1 Chloride 109 Carbon Dioxide 24 BUN 11 Creatinine 0.79 Glucose 134 H Calcium 8.1 L - VTE Documentation of Mechanical Device: Intermittent pneumatic compression device Consult Discharge Plan - Plan Referrals: Krish Vega MD [Primary Care Provider] - 01/06/17 2:40 pm
[2017-01-01] MEDS ORDERED: Saline Nasal Spray 44 ML BOTTLE NS PRN (15:09)
[2017-01-01 17:14] LABS: CK Total (Ck Isoenzymes) 1137 U/L (20-200)
[2017-01-01] MEDS ORDERED: Ipratropium/Albuterol Neb 3 ML IH PRN (20:28)
[2017-01-02] MEDS: 0.9 % Sodium Chloride 1,000 ML IVC SCH (02:13)
[2017-01-02 07:48] LABS: CK Total (Ck Isoenzymes) 1233 U/L (20-200)
[2017-01-02] MEDS: levoFLOXacin 750 MG TABLET PO SCH (08:00)
[2017-01-02] MEDS: Oseltamivir Phosphate 30 MG CAPSULE PO SCH (08:00)
[2017-01-02] MEDS: Aspirin Enteric Coated 325 MG Tablet PO SCH (08:01)
[2017-01-02 10:54] VITALS: BP 150/72
--- NOTE | 2017-01-02 12:03 | Discharge Summary ---
Date of Encounter: 01/02/17 Time of Encounter: 12:01 - Discharge Diagnosis (1) Acute respiratory failure Priority: Primary Status: Acute Qualifiers: Respiratory failure complication: hypoxia Qualified Code(s): J96.01 - Acute respiratory failure with hypoxia (2) Generalized weakness Priority: Primary Status: Chronic (3) Influenza Priority: Primary Status: Acute (4) Rhabdomyolysis Priority: Primary Status: Acute Qualifiers: Rhabdomyolysis type: non-traumatic Qualified Code(s): M62.82 - Rhabdomyolysis - Discharge Medications Prescriptions: Benzonatate [Tessalon] 100 mg PO TID PRN #30 capsule PRN Reason: Cough Saline Nasal [place] [[place] Nasal [place]] 2 spray NS Q2H PRN 10 Days PRN Reason: Congestion Home Medications: Atenolol [Tenormin] 75 mg PO DAILY 12/28/16 [History] Atorvastatin [Lipitor] 40 mg PO HS 12/28/16 [History] Cinnamon Bark [Cinnamon] 500 mg PO BID 12/28/16 [History] Donepezil [Aricept] 10 mg PO HS 12/28/16 [History] Memantine HCl 10 mg PO DAILY 12/28/16 [History] Pantoprazole Sodium [Protonix] 40 mg PO DAILY 12/28/16 [History] Sertraline [Zoloft] 50 mg PO DAILY 12/28/16 [History] Benzonatate [Tessalon] 100 mg PO TID PRN #30 capsule 01/02/17 [Rx] Saline Nasal [place] [[place] Nasal [place]] 2 spray NS Q2H PRN 10 Days 01/02/17 [Rx] Allergies/Adverse Reactions: Allergies No Known Allergies Allergy (Verified 12/28/16 12:21) Date of admission: 12/30/16 12:15 Primary care physician: Krish Vega MD Discharging clinician: Cori Mendez Anticipated date of discharge: 01/02/17 - Patient Status Disposition: Transfer SNF Condition: Fair Functional capacity at discharge: uses cane/walker Overall status at discharge: patient is progressing back to baseline - Discharge Instructions Follow Up With: Krish Vega MD [Primary Care Provider] - 01/06/17 2:40 pm - Diet and Activity Activity: as per physical therapy Diet: low fat, low cholesterol, low salt diet Hospital course: Mr. Price is a 81 year old male with several medical problems who was admitted with generalized weakness and shortness of breath. Initial labs and chest x-ray showed no acute abnormality. Nasal swab for influenza A antigen was positive and he was started on Tamiflu regimen. He was also started on empiric antibiotic therapy for possible acute bacterial bronchitis. Blood cultures remain negative. Patient was also noted to have significantly elevated CK and was treated with aggressive IV hydration for rhabdomyolysis, likely due to flu. He had slight elevation of troponin, which was adynamic. Cardiology was consulted and this was less likely ACS. Echocardiogram was done which showed 60-65% EF and mild left ventricle and diastolic dysfunction. Physical therapy evaluation was done and recommended placement in extended care facility. Patient is currently medically stable for discharge. - Time Spent with Patient Total time spent providing and/or coordinating discharge services: Greater than 30 minutes (50 min) - Constitutional Vitals: Temp Pulse Resp BP Pulse Ox 98.2 F 77 16 150/72 93 L 01/02/17 10:53 01/02/17 10:53 01/02/17 10:53 01/02/17 10:53 01/02/17 10:53 General appearance: Present: A&O X 3, answers questions appropriately - Respiratory Respiratory exam: Present: CTAB. Absent: accessory muscle use, rales, rhonchi, wheezes - Cardiovascular Cardiovascular exam: Present: RRR, +S1, +S2. Absent: diastolic murmur, gallop, rubs, systolic murmur - VTE Documentation of Mechanical Device: Intermittent pneumatic compression device
--- NOTE | 2017-01-02 12:08 | Physician Discharge Referral ---
ExtendedCare Referral Info Transfer To: [facility] Provider in Charge: Cori Mendez Provider in Charge after Transfer: PCP Institutional Level of Care: Skilled - Diagnosis (1) Acute respiratory failure Priority: Primary Status: Acute (2) Generalized weakness Priority: Primary Status: Chronic (3) Influenza Priority: Primary Status: Acute (4) Rhabdomyolysis Priority: Primary Status: Acute (5) Dementia Priority: Secondary Status: Chronic Expected Duration of Placement: 3 weeks Prognosis: Fair Aware of Diagnosis: Patient, Family Aware of Prognosis: Patient, Family - Transfer Medications Prescriptions: Benzonatate [Tessalon] 100 mg PO TID PRN #30 capsule PRN Reason: Cough Saline Nasal [place] [[place] Nasal [place]] 2 spray NS Q2H PRN 10 Days PRN Reason: Congestion Home Medications: Atenolol [Tenormin] 75 mg PO DAILY 12/28/16 [History] Atorvastatin [Lipitor] 40 mg PO HS 12/28/16 [History] Cinnamon Bark [Cinnamon] 500 mg PO BID 12/28/16 [History] Donepezil [Aricept] 10 mg PO HS 12/28/16 [History] Memantine HCl 10 mg PO DAILY 12/28/16 [History] Pantoprazole Sodium [Protonix] 40 mg PO DAILY 12/28/16 [History] Sertraline [Zoloft] 50 mg PO DAILY 12/28/16 [History] Benzonatate [Tessalon] 100 mg PO TID PRN #30 capsule 01/02/17 [Rx] Saline Nasal [place] [[place] Nasal [place]] 2 spray NS Q2H PRN 10 Days 01/02/17 [Rx] Allergies/Adverse Reactions: Allergies No Known Allergies Allergy (Verified 12/28/16 12:21) - Respiratory Orders Oxygen / L per min (2L/min via [place]) Smoking Cessation: Smoking cessation has been advised. For more information, call the [place] Tobacco Quit Line at 4-268-WPXX-NOW. - Ancillary Orders May use pressure relief devices daily prn - Advance Directives Code Status: DNR-Arrest/Don't Intubate - Rehabiliation Orders Rehab Orders: ROM Exercises, Evaluation for Physical Therapy, Evaluation for Occupational Therapy - Diet Orders Cardiac CERTIFICATION: I certify that the transfer of the above named patient to an Extended Care Facility is necessary for the continuing treatment of the diagnosis listed. The above information is true and accurate reflection of patient's current condition. Confidential - Redisclosure prohibited without a patient's written consent.
== END 2017-01-02 15:00 | DRG 913 ==
LOC: 3BNU 11:45 → EMEROO 11:45 → 3BNU 16:20 → SUATTDRO 12-30 12:15 → 3ANU 12-31 17:24
PROVIDERS: ADMIT Internal Medicine; ATTEND Internal Medicine

== ENCOUNTER 2017-04-22 10:24 | Inpatient (IN) ==
--- NOTE | 2017-04-22 10:40 | Emergency Department Note ---
Disposition Clinical Impression: Back pain Qualifiers: Back pain location: low back pain Chronicity: acute Back pain laterality: unspecified Sciatica presence: unspecified whether sciatica present Qualified Code(s): M54.5 - Low back pain Disposition: Still a Patient Condition: Fair Referrals: NO,PCP [Non-Partnered Physician] - Forms: ED Satisfaction Letter Time of Disposition: 11:07 Back Pain HPI - General Chief Complaint: ED Back Pain/Injury Stated Complaint: back pain, possible uti Time Seen by Provider: 04/22/17 10:30 Source: patient Mode of arrival: EMS Limitations: no limitations Nursing Notes Reviewed: Yes Vital Signs Reviewed: Yes - History of Present Illness HPI Narrative: Alert and oriented and nontoxic-appearing 82-year-old male presents to the emergency department by EMS for evaluation of low back pain. The patient states that he has had ongoing issues with low back pain for the past several months. He goes on to state that he has had multiple falls as of lately. He states that the last fall was approximately 2 days ago while he was outside in his yard. He states that he noticed an increase in the severity of his back pain ever since. This pain radiates from the low lumbar region into his left hip. The pain is made worse and with ambulation, range of motion, and movement. He describes the pain as a dull ache. He denies any fever, chills, nausea, vomiting, diarrhea, abdominal pain, or urinary symptoms. He denies any numbness or tingling in his lower extremities. Of note, EMS reports that there was a urinal sitting on his nightstand with dark and cloudy colored urine. EMS reports that the patient's family has stated that the patient has a history of numerous urinary tract infections. The patient denies any other injuries or complaints. He denies any chest pain, shortness of breath, cough, or head injuries. Pt Subjective Complaint: back pain, fall Duration: gradually worsening Location: lumbar spine Pain Severity: moderate Pain Scale: 6 Quality: dull Radiation: buttocks Improves with: none Worsens with: movement Associated symptoms: Reports: denies other symptoms - Related Data Home Medications Medication Instructions Recorded Confirmed Atenolol [Tenormin] 75 mg PO DAILY 12/28/16 12/28/16 Atorvastatin [Lipitor] 40 mg PO HS 12/28/16 12/28/16 Cinnamon Bark [Cinnamon] 500 mg PO BID 12/28/16 12/28/16 Donepezil [Aricept] 10 mg PO HS 12/28/16 12/28/16 Memantine HCl 10 mg PO DAILY 12/28/16 12/28/16 Pantoprazole Sodium [Protonix] 40 mg PO DAILY 12/28/16 12/28/16 Sertraline [Zoloft] 50 mg PO DAILY 12/28/16 12/28/16 Previous Rx's Medication Instructions Recorded Benzonatate [Tessalon] 100 mg PO TID PRN #30 capsule 01/02/17 Saline Nasal [place] [[place] Nasal 2 spray NS Q2H PRN 10 Days 01/02/17 [place]] Allergies Allergy/AdvReac Type Severity Reaction Status Date / Time No Known Allergies Allergy Verified 12/28/16 12:21 All systems ED: reviewed and negative except as stated. Constitutional: Denies: fever, chills, weakness, weight change Eyes: Denies: eye pain, eye discharge, vision change ENT ED: Denies: ear pain, throat pain, dental pain, hearing loss, epistaxis, congestion, dysphagia Cardiovascular: Denies: chest pain, palpitations, dyspnea on exertion, edema, syncope Respiratory: Denies: cough, dyspnea, wheezes, hemoptysis, stridor Gastrointestinal: Denies: abdominal pain, nausea, vomiting, diarrhea, constipation, hematemesis, melena, hematochezia Genitourinary: Denies: urgency, dysuria, frequency, hematuria Musculoskeletal: Reports: as per HPI, back pain. Denies: neck pain, arthralgia , myalgia Integumentary: Denies: rash, abrasion, lesions Neurological: Denies: headache, weakness, numbness, paresthesias, confusion, abnormal gait, vertigo Psychiatric: Denies: anxiety, depression, suicidal thoughts, homicidal thoughts , auditory hallucinations, visual hallucinations Endocrine: Denies: fatigue Hematological/Lymphatic: Denies: easy bleeding, easy bruising Allergic/Immunologic: Denies: facial swelling, urticaria Past Medical History - Past Medical History Source: patient, nursing notes reviewed Medical history: Reports: dementia, diabetes Surgical history: Reports: appendectomy Psychiatric history: Reports: no psych history - Social History Smoking Status: Former smoker Smokeless Tobacco Status: No Alcohol use: Reports: none Drug use: Reports: none Physical Exam - General Limitations: no limitations General appearance: alert, in no apparent distress - Head Head exam: atraumatic, normocephalic, normal inspection - Eye Eye exam: Present: normal appearance, PERRL, EOMI. Absent: nystagmus - Expanded Eye Exam Pupils: Bilateral: regular, round, reactive, size (2) - ENT ENT exam: mucous membranes moist - Neck Neck exam: Present: normal inspection, full ROM, trachea midline. Absent: tenderness - Chest Chest inspection: Present: normal inspection, symmetric chest wall rise - Respiratory Respiratory exam: Present: normal lung sounds bilaterally. Absent: respiratory distress, wheezes, stridor, accessory muscle use, prolonged expiratory phase - Cardiovascular Cardiovascular exam: Present: regular rate, normal rhythm, normal heart sounds - Abdominal Exam Abdominal exam: Present: soft, Non-Tender, normal bowel sounds. Absent: tenderness, distention, guarding, rebound, rigidity, trauma - Extremities Exam Extremities exam: Present: normal inspection, full ROM. Absent: tenderness, pedal edema - Back Exam Back exam: Present: paraspinal tenderness (Tenderness to palpation of the paraspinal lumbar musculature), sciatic notch tenderness (L), straight leg raise (L). Absent: full ROM (Range of motion limited, lumbar spine), tenderness , CVA tenderness (R), CVA tenderness (L), muscle spasm, vertebral tenderness, sciatic notch tenderness (R), straight leg raise (R) - Neurological Exam Neurological exam: Present: alert, oriented X3 - Psychiatric Psychiatric exam: Present: normal affect, normal mood - Skin Skin exam: Present: warm, dry, intact, normal color Course Vital Signs Temperature 97.6 F 04/22/17 10:26 Pulse Rate 74 04/22/17 10:26 Respiratory Rate 18 04/22/17 10:26 Blood Pressure 123/75 04/22/17 10:26 O2 Sat by Pulse Oximetry 97 04/22/17 10:26 Temperature 97.6 F 04/22/17 10:26 Pulse Rate 74 04/22/17 10:26 Respiratory Rate 18 04/22/17 10:26 Blood Pressure 123/75 04/22/17 10:26 O2 Sat by Pulse Oximetry 97 04/22/17 10:26 Oxygen Delivery Oxygen Delivery Room Air Back Pain/Injury - Medical Records Medical records reviewed: Yes I reviewed the patient's medical records. - Lab Data Result diagrams: 04/22/17 11:19 04/22/17 11:18 Lab Results 04/22/17 04/22/17 04/22/17 Range/Units 11:18 11:19 11:19 WBC 6.3 (4.3-11.1) K/mcL RBC 5.18 (4.19-5.50) M/mcL Hgb 15.1 (12.9-16.9) g/dL Hct 46.6 (37.5-50.1) % MCV 90.0 (83.0-100.0) fL MCH 29.2 (28.0-33.3) pg MCHC 32.4 (31.6-35.5) g/dL RDW 14.8 H (11.5-14.5) % Plt Count 230 (140-400) K/mcL MPV 9.7 (9.4-12.4) fL Immature Gran % 0.9 (0-4) % Seg Neutrophils % 65.3 % Lymphocytes % 23.3 % Monocytes % 9.0 % Eosinophils % 0.9 % Basophils % 0.6 % Neutrophils # 4.1 (1.6-8.9) K/mcL Lymphocytes # 1.5 (0.6-4.6) K/mcL Monocytes # 0.6 (0.0-1.3) K/mcL Eosinophils # 0.1 (0.0-0.6) K/mcL Basophils # 0.0 (0.0-0.2) K/mcL Immature Plt Fraction 4.1 (1.1-6.1) % Sodium 137 (136-145) mEq/L Potassium 4.8 H (3.5-4.5) mEq/L Chloride 101 (98-109) mEq/L Carbon Dioxide 27 (19-29) mEq/L BUN 18 (8-26) mg/dL Creatinine 1.58 H (0.72-1.25) mg/dL Est GFR ( Amer) 51 L (> 60) Est GFR (Non-Af Amer) 42 L (> 60) BUN/Creatinine Ratio 11 (6-26) Glucose 199 H (70-99) mg/dL Calculated Osmolality 291 (280-300) Lactic Acid 1.8 (0.5-2.2) mmol/L Calcium 9.5 (8.6-10.8) mg/dL Total Bilirubin 0.6 (0.2-1.2) mg/dL Direct Bilirubin 0.3 (0.0-0.5) mg/dL Indirect Bilirubin 0.3 (0.0-1.2) mg/dL AST 28 (5-34) Units/L ALT 36 (0-55) Units/L Alkaline Phosphatase 165 H (38-126) Units/L Creatine Kinase 57 (30-200) Units/L Troponin I (0-0.03) ng/mL C-Reactive Protein 3 (Less than 5) mg/L Serum Total Protein 8.1 (6.0-8.3) g/dL Albumin 3.0 L (3.5-5.0) g/dL Globulin 5.1 H (2.4-3.5) g/dL Albumin/Globulin Ratio 0.6 L (1.1-2.2) 04/22/17 Range/Units 11:19 WBC (4.3-11.1) K/mcL RBC (4.19-5.50) M/mcL Hgb (12.9-16.9) g/dL Hct (37.5-50.1) % MCV (83.0-100.0) fL MCH (28.0-33.3) pg MCHC (31.6-35.5) g/dL RDW (11.5-14.5) % Plt Count (140-400) K/mcL MPV (9.4-12.4) fL Immature Gran % (0-4) % Seg Neutrophils % % Lymphocytes % % Monocytes % % Eosinophils % % Basophils % % Neutrophils # (1.6-8.9) K/mcL Lymphocytes # (0.6-4.6) K/mcL Monocytes # (0.0-1.3) K/mcL Eosinophils # (0.0-0.6) K/mcL Basophils # (0.0-0.2) K/mcL Immature Plt Fraction (1.1-6.1) % Sodium (136-145) mEq/L Potassium (3.5-4.5) mEq/L Chloride (98-109) mEq/L Carbon Dioxide (19-29) mEq/L BUN (8-26) mg/dL Creatinine (0.72-1.25) mg/dL Est GFR ( Amer) (> 60) Est GFR (Non-Af Amer) (> 60) BUN/Creatinine Ratio (6-26) Glucose (70-99) mg/dL Calculated Osmolality (280-300) Lactic Acid (0.5-2.2) mmol/L Calcium (8.6-10.8) mg/dL Total Bilirubin (0.2-1.2) mg/dL Direct Bilirubin (0.0-0.5) mg/dL Indirect Bilirubin (0.0-1.2) mg/dL AST (5-34) Units/L ALT (0-55) Units/L Alkaline Phosphatase (38-126) Units/L Creatine Kinase (30-200) Units/L Troponin I 0.04 H* (0-0.03) ng/mL C-Reactive Protein (Less than 5) mg/L Serum Total Protein (6.0-8.3) g/dL Albumin (3.5-5.0) g/dL Globulin (2.4-3.5) g/dL Albumin/Globulin Ratio (1.1-2.2) S.[email or web address].Santa - S.B.A.RFany Transition of Care: Care of this patient has been transferred to Dr. Presley due to mid-level shift change. Situation: Demographics, MOA Background: Presenting Complaint, Relevant PMH, Meds, & Allergies Assessment: Vital Signs, Course and respsone to treatment, Exam Concerns, Patient/Family Expectation, Pertinant Lab Results, Outstanding Labs Recommendation: Barrier(s) to disposition, Recommendation based on pending studies, treatments, or consults S.B.A.R. Report Given to: Dr. Casimiro AlvaradoBFanyAEphraim Repor Time: 11:06
[2017-04-22 11:30] LABS: Basophils % 0.6 %; Eosinophils # 0.1 K/mcL (0.0-0.6); Eosinophils % 0.9 %; Hematocrit 46.6 % (37.5-50.1); Hemoglobin 15.1 g/dL (12.9-16.9); Immature Granulocytes % 0.9 % (0-4); Immature Platelets 4.1 % (1.1-6.1); Lymphocytes # 1.5 K/mcL (0.6-4.6); Lymphocytes % 23.3 %; Mean Corpuscular HGB Conc 32.4 g/dL (31.6-35.5); Mean Corpuscular Hemoglobin 29.2 pg (28.0-33.3); Mean Platelet Volume 9.7 fL (9.4-12.4); Monocytes # 0.6 K/mcL (0.0-1.3); Neutrophils # 4.1 K/mcL (1.6-8.9); Platelet Count 230 K/mcL (140-400); Red Blood Count 5.18 M/mcL (4.19-5.50); Red Cell Distribution Width 14.8 % (11.5-14.5); Segmented Neutrophils % 65.3 %
[2017-04-22 11:45] LABS: Albumin/Globulin Ratio 0.6 (1.1-2.2); Bilirubin,Direct 0.3 mg/dL (0.0-0.5); Bilirubin,Indirect 0.3 mg/dL (0.0-1.2); Bilirubin,Total 0.6 mg/dL (0.2-1.2); Calcium 9.5 mg/dL (8.6-10.8); Globulin 5.1 g/dL (2.4-3.5); Potassium 4.8 mEq/L (3.5-4.5); Total Protein 8.1 g/dL (6.0-8.3)
--- NOTE | 2017-04-22 11:57 | Emergency Department Note ---
START Narrative - START START: Agree with H&P as documented. The patient has a history of chronic gait instability and usually his walker. He went far out into his yard to help his relative plan some tomatoes and twisted and fell. He injured his back. The patient is currently being treated for UTI on amoxicillin. The patient has had increasing back pain and generalized weakness. He has had no darion chest pain or shortness of breath. There is no history of fever or cough. No abdominal pain vomiting or diarrhea. No unilateral weakness of the arms or legs or bowel or bladder dysfunction. No slurred speech or confusion. There is no history of difficulty moving the arms or legs. He has chronic left lower extremity pain in the knee secondary to arthritis. No injuries to the head neck upper back chest upper extremities lower extremities or abdomen are reported. There is no history of bleeding the patient is not anticoagulated. A complete review of systems was reviewed and is otherwise negative or noncontributory. Physical exam: Elderly male laying supine nontoxic in appearance alert oriented answering questions properly. HEENT normocephalic/atraumatic or mucosa slightly dry. Tympanic membranes clear neck supple no pain to palpation of the cervical spinous processes. Lungs clear to auscultation bilaterally. Cardiovascular S1- S2 audible no JVD or extremity cyanosis or edema is noted. Abdomen soft nondistended no rebound rigidity guarding or tenderness. No bruising. Extremities are warm and well perfused supple. Some pain with movement left knee. No evidence of acute trauma. Exposed skin warm and dry without petechia or purpura. Inspection the back reveals no a to palpation of the thoracic column Lumbar area tenderness is noted. No bruising. Chest wall no crepitus step-off or flail chest. Neurologic muscle strength and sensation are generally preserved in all 4 extremities cranial nerves II through XII are grossly intact. No acute focal defects noted. Impression: Frail elderly Recurrent falls Chronic left knee pain Weakness Abnormal EKG Elevated troponin Urinary tract infection Lumbar back pain History of diabetes mellitus Hydronephrosis and ureteral stricture Kidney stone L4 fracture Renal insufficiency Bladder trabeculae Kidney stones Iliac artery aneurysm Hip osteoarthritis Renal cyst The patient has fallen a few times, he is elderly, and appears to have an L4 fracture. He also has a UTI, renal insufficiency, kidney stones, an apparent hydronephrosis secondary to ureteral stricture, and abnormal EKG and elevated troponin. Based on his age, weakness, difficulty with ambulation, persistent UTI, acute L4 fracture, recurrent falls, elevated troponin and abnormal EKG, I thought it would be appropriate to admit the patient to the hospital. IV antibiotics were ordered as well as IV fluids. Aspirin was ordered as well. The patient does not describe significant chest pain but does have slight ST depression in one of the anterior leads. He has a very low-grade elevation his troponin which may be artifactual secondary to renal insufficiency. The patient is currently stable. I discussed the case with the hospitalist on-call who has accepted the patient to their care.
[2017-04-22 12:13] LABS: Bilirubin,Urine Small (Negative); Blood,Urine Negative (Negative); Clarity,Urine Cloudy (Clear); Color,Urine Yellow (Yellow); Glucose,Urine (UA) Normal (Normal); Ketones,Urine Negative (Negative); Leukocyte Esterase,Urine Moderate (Negative); Nitrite,Urine Negative (Negative); Protein,Urine Trace mg/dL (Neg-Trace); Specific Gravity,Urine 1.027 (1.010-1.025); Urobilinogen,Urine Normal (Normal)
[2017-04-22 12:18] LABS: Bacteria,Urine None Seen per hpf (None-Few); Hyaline Casts,Urine None Seen per lpf (None-Few); Squamous Epithelial Cell,Urine Many per lpf (None-Few); WBC,Urine 30-50 per hpf (0-3)
[2017-04-22] MEDS ORDERED: Aspirin 325 MG TABLET PO ONE (12:18)
--- NOTE | 2017-04-22 14:05 | Internal Med History&Physical ---
<Andrew Henley - Last Filed: 04/22/17 19:52> Date of Encounter: 04/22/17 Time of Encounter: 14:00 Assessment and Plan (1) Compression fracture of cervical spine Current visit: Yes Status: Acute Assess: Mr. Price is a 82 year old male who presents from the ED with chief complaint of back pain related to a fall he sustained two days ago while at home. Patient states he falls repeatedly. Patient denies feeling dizzy, lightheaded, pre-syncopal, or syncopal during falls but says he is just unstable on his feet. Patient reports he was in the yard and became unstable and twisted his back and fell to the ground. CT of the abdomen without contrast dated 04/22/17 shows biconcave L4 compression fracture with no paraspinal hematoma. Plan: Consult to [facility] (Dr. Acevedo) ordered and confirmed Orders for pain medication PRN for mild, moderate, and severe pain placed Qualifiers: Encounter type: initial encounter Qualified Code(s): M48.52XA - Collapsed vertebra, not elsewhere classified, cervical region, initial encounter for fracture (2) Elevated troponin Current visit: Yes Status: Acute Assess: Patient presents with initial elevated troponin level 0.04 on initial blood draw in the ED. Elevated troponin may be artifactual secondary to renal insufficiency. Will trend troponins and place patient on continuous cardiac telemetry. Plan: Trend troponins x2 Continue aspirin therapy Continuous cardiac telemetry ordered Supplemental O2 ordered Continuous SpO2 monitoring ordered Monitor patient and vital signs (3) Hydronephrosis concurrent with and due to ureteral stricture Current visit: Yes Status: Acute Assess: Patient presents with hydronephrosis of right kidney. CT of pelvis without contrast dated 04/22/17 shows incomplete evaluation partially obstructing right proximal ureteral and collecting system stone measuring up to 2.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 Plan: Consult to nephrology ordered and placed. Discussed case with Dr. Wright who agreed to see patient after reviewing the imaging. Monitor I&O Monitor daily weight Renal diet ordered (4) Nephrolithiasis Current visit: Yes Status: Acute Assess: Patient presents with bilateral nephrolithiasis. CT of pelvis without contrast dated 04/22/17 shows incomplete evaluation partially obstructing right proximal ureteral and collecting system stone measuring up to 2.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 Plan: Consult to nephrology ordered and placed. Discussed case with Dr. Wright who agreed to see patient after reviewing the imaging. Monitor I&O Monitor daily weight Renal diet ordered (5) UTI (urinary tract infection) Current visit: Yes Status: Acute Assess: Patient was recently diagnosed with UTI and placed on Amoxicillin which he was still currently taking up until admission. Plan: Stop amoxicillin IV ceftriaxone ordered 1,000 mg daily ordered for UTI infection coverage Urine culture ordered Will order follow-up U/A Qualifiers: Urinary tract infection type: site unspecified Hematuria presence: with hematuria Qualified Code(s): N39.0 - Urinary tract infection, site not specified; R31.9 - Hematuria, unspecified (6) Diabetes Current visit: Yes Status: Chronic Assess: Patient reports history of diabetes which was controlled by oral hyperglycemics (metformin). Patient states he stopped taking metformin because blood glucose checks were lower. Plan: Blood glucose monitoring ACHS ordered Low-dose correction insulin scale ordered Hypoglycemic scale ordered Qualifiers: Diabetes mellitus type: other specified (including RAHUL) Diabetes mellitus complication status: with unspecified complications Diabetes mellitus lobsterman insulin use: without lobsterman use Qualified Code(s): E13.8 - Other specified diabetes mellitus with unspecified complications (7) Fall Current visit: Yes Status: Acute Assess: Patient presents with history of repeated falls with the most recent two days ago resulting in a biconcave L4 compression fracture with no paraspinal hematoma as noted on CT of abdomen without contrast dated 04/22/17. Plan: Falls precautions ordered Bed rest ordered [id number] status ordered when out of bed Monitor patient closely Qualifiers: Encounter type: initial encounter Qualified Code(s): W19.XXXA - Unspecified fall, initial encounter (8) DVT prophylaxis Current visit: Yes Status: Acute Assess: Patient placed on DVT prophylaxis preadmission protocol and bedrest status. Pharmacologic DVT prophylaxis is contraindicated due to current hematuria associated with UTI and possible surgical intervention for patient's current nephrolithiasis and/or L4 compression fracture. Plan: Anti-embolic stockings ordered bilaterally Internal Medicine - H&P: HPI Chief complaint: Back pain Admitted From: Emergency Dept Plans for Post Hospital Care: Home History of present illness: Mr. Price is a 82 year old male who presents from the ED with chief complaint of back pain related to a fall he sustained two days ago while at home. Patient states he falls repeatedly. Patient denies feeling dizzy, lightheaded, pre-syncopal, or syncopal during falls but says he is just unstable on his feet. Patient was recently diagnosed with UTI and placed on Amoxicillin which he is still currently taking. Patient reports he was in the yard and became unstable and twisted his back and fell to the ground. CT of the abdomen without contrast dated 04/22/17 shows biconcave L4 compression fracture with no paraspinal hematoma. 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 Patient currently has elevated troponin which will be repeated x2. Patient denies chest pain or any cardiac symptoms. Elevated troponin may be secondary to renal insufficiency. Patient denies SOB, palpitations, cough, abdominal pain , nausea, vomiting, diarrhea, neck pain, or generalized weakness. Patient is at moderate risk due to history of falls and placed as observation status with continuous cardiac telemetry, troponins trended 2, urine culture, consults to spinal group (see Dr. Acevedo), urology consult with Dr. Wright, and falls precautions/bedrest/S telemetry status. Patient also been placed on supplemental O2 with continuous SPO2 monitoring and continuation of IV amoxicillin for UTI. Patient to be monitored closely. Past Med Surg Social Fam HX - Past Medical History Source: patient Medical history: dementia, diabetes Psychiatric history: no psych history - Past Surgical History Surgical History: appendectomy - Social History Smoking Status: Former smoker Smokeless Tobacco Status: No Alcohol use: none Drug use: none Occupational status: retired Current living situation: Home, With Family Activity Level: Uses cane/walker Recent Out of Country Travel Within the Last 8 Weeks: No Exposure or Possible Exposure to Illness During Travel: No - Family History Father Race: Family Member Ethnicity: Non- Living Status: Age at : 65 Cause of : Emphysema Hx Family Respiratory Disorders: Yes (Emphysema) Mother Race: Family Member Ethnicity: Non- Living Status: Age at : 52 Cause of : Lung cancer Hx Family Cancer: Yes (Lung) Brother Race: Family Member Ethnicity: Non- Living Status: Still Living Hx Family Cardiac Disorders: Yes (HD) Sister Race: Family Member Ethnicity: Non- Living Status: Age at : 58 Cause of : Leukemia Hx Family Cancer: Yes (Leukemia) Internal Medicine - H&P: Meds Atenolol [Tenormin] 75 mg PO DAILY 12/28/16 [History] Cinnamon Bark [Cinnamon] 500 mg PO BID 12/28/16 [History] Donepezil [Aricept] 10 mg PO HS 12/28/16 [History] Memantine HCl 10 mg PO DAILY 12/28/16 [History] Pantoprazole Sodium [Protonix] 40 mg PO DAILY 12/28/16 [History] Sertraline [Zoloft] 50 mg PO DAILY 12/28/16 [History] Amoxicillin/Clavulanate [Augmentin] 875 mg PO BID 04/22/17 [History] Aspirin 81 mg PO DAILY 04/22/17 [History] Cranberry 500 mg PO DAILY 04/22/17 [History] Lactobacillus Acidophilus [Acidophilus Probiotic] 1 mg PO DAILY 04/22/17 [ History] Allergies No Known Allergies Allergy (Verified 04/22/17 14:34) All Systems PM: A 10-system review of systems was performed and is negative for pertinent findings except as documented above in the HPI. - Constitutional Constitutional: as per HPI, falls, no chills, no fever(s), no night sweats - EENT Eyes: no change in vision, no discharge, no pain, no photophobia Ears: no ear discharge, no ear pain, no tinnitus Nose, mouth and throat: no dysphagia, no nasal discharge, no neck pain, no sore throat - Breasts Breasts: as per HPI - Cardiovascular Cardiovascular ROS IM: no chest pain, no diaphoresis, no dyspnea, no lightheadedness, no palpitations, no syncope - Respiratory Respiratory: no cough, no dyspnea, no wheezing, no excessive phlegm production - Gastrointestinal Gastrointestinal: no abdominal pain, no diarrhea, no hematemesis, no hematochezia, no melena, no nausea, no vomiting - Genitourinary Genitourinary ROS male: as per HPI, other (Current UTI) - Musculoskeletal Musculoskeletal ROS IM: as per HPI, back pain (Due to fall twp days ago), no numbness, no tingling - Integumentary Integumentary IM: no rash, no unusual bruising - Neurological Neurological ROS: as per HPI, frequent falls, lack of coordination, no confusion , no convulsions, no focal weakness, no numbness, no tingling, no tremor(s) - Psychiatric Psychiatric: as per HPI - Endocrine Endocrine IM: as per HPI - Hematologic/Lymphatic Hematologic/Lymphatic: no easy bruising - Allergic/Immunologic Allergic/Immunologic: as per HPI - Constitutional Vitals: Temp Pulse Resp BP Pulse Ox 97.6 F 67 16 101/56 97 04/22/17 10:26 04/22/17 13:59 04/22/17 13:59 04/22/17 13:59 04/22/17 13:59 General appearance: Present: cooperative, A&O X 3, no acute distress, answers questions appropriately - Head Head exam: Present: atraumatic, normocephalic - Eye Eye exam: Present: PERRL, conjuntiva pink, sclera anicteric Pupils: Present: PERRL - ENT ENT exam: Present: normal exam, normal external ear exam - Neck Neck exam general surgery: Present: normal inspection, supple, trachea midline - Respiratory Respiratory exam: Present: CTAB. Absent: accessory muscle use, rales, rhonchi, wheezes - Cardiovascular Cardiovascular exam: Present: RRR, +S1, +S2. Absent: diastolic murmur, gallop, rubs, systolic murmur - GI/Abdominal GI/Abdominal exam: Present: normal bowel sounds, soft, no peritoneal signs. Absent: distended, tenderness - Rectal Rectal exam: Present: deferred - Additional comments: exam deferred. - Extremities Exam Extremities exam: Present: normal inspection, warm, radial pulses palpable and symetrical. Absent: calf tenderness, cyanotic, pedal edema - Back Exam Back exam: Present: tenderness, vertebral tenderness - Neurological Exam Neurological exam: Present: CN II-XII intact, oriented X3, no focal deficits. 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 - Psychiatric Psychiatric exam: Present: normal affect, normal mood - Skin Skin exam: Present: dry, intact Internal Med - H&P Results - Labs CBC & Chem 7: 04/22/17 11:19 04/22/17 11:18 Labs: Short CBC 04/22/17 Range/Units 11:19 WBC 6.3 (4.3-11.1) K/mcL Hgb 15.1 (12.9-16.9) g/dL Hct 46.6 (37.5-50.1) % Plt Count 230 (140-400) K/mcL Neutrophils # 4.1 (1.6-8.9) K/mcL BMP 04/22/17 11:18 Sodium 137 Potassium 4.8 H Chloride 101 Carbon Dioxide 27 BUN 18 Creatinine 1.58 H Glucose 199 H Calcium 9.5 Cardiac Enzymes 04/22/17 Range/Units 11:19 Troponin I 0.04 H* (0-0.03) ng/mL Liver Function 04/22/17 Range/Units 11:18 Total Bilirubin 0.6 (0.2-1.2) mg/dL Direct Bilirubin 0.3 (0.0-0.5) mg/dL AST 28 (5-34) Units/L ALT 36 (0-55) Units/L Alkaline Phosphatase 165 H (38-126) Units/L Albumin 3.0 L (3.5-5.0) g/dL Urine 04/22/17 Range/Units 11:57 Urine Color Yellow (Yellow) Urine Clarity Cloudy A (Clear) Urine pH 6.0 (5.0-8.0) pH Units Ur Specific [place] 1.027 H (1.010-1.025) Urine Protein Trace (Neg-Trace) mg/dL Urine Glucose (UA) Normal (Normal) mg/dL - EKG Data EKG shows normal: sinus rhythm - EKG Data Prior EKG available for review: yes EKG comments: 06/09/17 15:20 EKG dated 12/30/16 shows sinus rhythm with low QRS voltage in the extremity leads, possible inferior myocardial infarction, probably old. EKG dated 04/22/17 shows sinus rhythm with sinus arrhythmia, low QRS voltage in the extremity leads [QRS deflection < 0.5 mV in limb leads], pattern consistent with pulmonary disease, inferior myocardial infarction [40+ ms Q wave and/or ST/ T abnormality in II/aVF], probably old. - Impressions ITS Impressions Lumbar Spine CT 04/22/17 10:36 IMPRESSION: 1. Biconcave compression fracture of L4 without significant stenosis 2. Lumbar degenerative disease 3. Chronic right hydronephrosis 4. 2.4 cm right common iliac artery aneurysm D/ / Sam Noel MD / Sam Noel MD Interpreting Provider: Sam Noel MD Pelvis CT 04/22/17 10:36 IMPRESSION: 1. No acute fracture or dislocation. 2. Bilateral hip and SI joint osteoarthritis. 3. Trabeculation of the bladder with multiple bladder diverticula. 4. Right internal iliac artery aneurysm. 5. Incomplete evaluation partially obstructing right proximal ureteral and collecting system stone measure up to 2.1 cm. D/ / 04/22/2017 12:08:59 Rubin Smith MD / vanessa Interpreting Provider: Rubin Smith MD Abdomen CT 04/22/17 11:09 IMPRESSION: 1. No acute abdominopelvic process demonstrated 2. Chronic right hydronephrosis likely due to UPJ stricture, with bilateral nephrolithiasis 3. Interval decrease in size of right renal cyst 4. Biconcave L4 compression fracture with no paraspinal hematoma D/ / Sam Noel MD / Sam Noel MD Interpreting Provider: Sam Noel MD - Diagnostic Studies CT scan - abdomen Additional comments: Impressions Abdomen CT 04/22/17 11:09 IMPRESSION: 1. No acute abdominopelvic process demonstrated 2. Chronic right hydronephrosis likely due to UPJ stricture, with bilateral nephrolithiasis 3. Interval decrease in size of right renal cyst 4. Biconcave L4 compression fracture with no paraspinal hematoma D/ / Sam Noel MD / Sam Noel MD Interpreting Provider: Sam Noel MD CT scan - pelvis Additional comments: Impressions Pelvis CT 04/22/17 10:36 IMPRESSION: 1. No acute fracture or dislocation. 2. Bilateral hip and SI joint osteoarthritis. 3. Trabeculation of the bladder with multiple bladder diverticula. 4. Right internal iliac artery aneurysm. 5. Incomplete evaluation partially obstructing right proximal ureteral and collecting system stone measure up to 2.1 cm. D/ / 04/22/2017 12:08:59 Rubin Smith MD / vanessa Interpreting Provider: Rubin Smith MD Other Images Additional comments: Impressions Lumbar Spine CT 04/22/17 10:36 IMPRESSION: 1. Biconcave compression fracture of L4 without significant stenosis 2. Lumbar degenerative disease 3. Chronic right hydronephrosis 4. 2.4 cm right common iliac artery aneurysm <Molly Bower - Last Filed: 04/23/17 09:04> Date of Encounter: 04/23/17 Internal Medicine - H&P: HPI History of present illness: Mr. Price is a 82 year old male All Systems PM: A 10-system review of systems was performed and is negative for pertinent findings except as documented above in the HPI. - Constitutional Vitals: Temp Pulse Resp BP Pulse Ox 98.4 F 75 16 123/77 97 04/23/17 06:53 04/23/17 06:53 04/23/17 06:53 04/23/17 06:53 04/23/17 06:53 Internal Med - H&P Results - Labs CBC & Chem 7: 04/23/17 00:06 04/23/17 00:06 Labs: Short CBC 04/23/17 Range/Units 00:06 WBC 5.9 (4.3-11.1) K/mcL Hgb 14.1 (12.9-16.9) g/dL Hct 43.3 (37.5-50.1) % Plt Count 206 (140-400) K/mcL Neutrophils # 3.5 (1.6-8.9) K/mcL BMP 04/23/17 00:06 Sodium 133 L Potassium 4.6 H Chloride 102 Carbon Dioxide 24 BUN 18 Creatinine 1.36 H Glucose 161 H Calcium 8.9 Cardiac Enzymes 04/22/17 04/23/17 Range/Units 17:39 00:06 Troponin I 0.05 H* 0.04 H* (0-0.03) ng/mL Liver Function 04/23/17 Range/Units 00:06 Total Bilirubin 0.4 (0.2-1.2) mg/dL AST 25 (5-34) Units/L ALT 31 (0-55) Units/L Alkaline Phosphatase 146 H (38-126) Units/L Albumin 2.6 L (3.5-5.0) g/dL - Attending Attestation This is a late entry for a patient I examined and reviewed laboratory, imaging and all diagnostic data on 04/22/17. My medical decision-making was reviewed with Andrew Henley - PETR. I agree with the documented findings, disposition and treatment plan as described above. History and exam by me shows: patient reports back pain. CT lumbar spine shows L4 compression fracture. CTAP shows hydronephrosis and possible ureteral stricture. Appreciate pain management service input. PT/OT. started pain control.
[2017-04-22] MEDS ORDERED: *HR* Morphine 2 MG/ML SYRINGE IVP PRN (14:40)
[2017-04-22] MEDS ORDERED: Naloxone 0.4 MG/ML INJ IVP PRN (14:40)
[2017-04-22] MEDS ORDERED: Acetaminophen 325 MG TABLET PO PRN (14:40)
[2017-04-22] MEDS ORDERED: MOM Conc 10 ML UD.LIQ PO PRN (14:40)
[2017-04-22] MEDS ORDERED: Ondansetron 4 MG/2 ML VIAL IVP PRN (14:40)
--- NOTE | 2017-04-22 15:42 | Pain Management Consultation ---
Date of Encounter: 04/22/17 Time of Encounter: 15:39 Assessment and Plan (1) Acute back pain Current Visit: Yes Status: Acute I am seeing the patient on temporary cross cover for Dr Fuad Perez who is hotel yardperson. The assessment and plan as outlined above was discussed with the patient and/or family members who expressed understanding and agreement. All questions were answered. After examining the patient and comparing the exam to the CT scan, I do not believe that the patient has back pain from the biconcave L4 fracture. The patient has no significant tenderness over the L4 spinous process. This may be an old injury to L4 dating back to his fall in 1984. I would recommend conservative management, not kyphoplasty, and once symptoms are stable - outpatient follow up. Qualifiers: Qualified Code(s): M54.9 - Dorsalgia, unspecified History of Present Illness Chief complaint: Back pain HPI: Mr. Price is a 82 year old male The patient was seen and evaluated in the ED today. The patient was interviewed in conjunction with his daughter. 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 The patient recently sat up in bed and reportedly "twisted" his back. He had fallen back into his bed. Told family he could not move. Came to the ED by squad. States that since he has been here, the patient feels much better now since he has been in the ED. Patient reports pain in the ache in his low back near his buttocks on the right. Past Med Surg Social Fam HX - Past Medical History Medical history: dementia, diabetes Psychiatric history: no psych history - Past Surgical History Surgical History: appendectomy - Social History Smoking Status: Former smoker Smokeless Tobacco Status: No Alcohol use: none Drug use: none - Family History Father Race: Family Member Ethnicity: Non- Living Status: Age at : 65 Cause of : Emphysema Hx Family Respiratory Disorders: Yes (Emphysema) Mother Race: Family Member Ethnicity: Non- Living Status: Age at : 52 Cause of : Lung cancer Hx Family Cancer: Yes (Lung) Brother Race: Family Member Ethnicity: Non- Living Status: Still Living Hx Family Cardiac Disorders: Yes (HD) Sister Race: Family Member Ethnicity: Non- Living Status: Age at : 58 Cause of : Leukemia Hx Family Cancer: Yes (Leukemia) Medications and Allergies Atenolol [Tenormin] 75 mg PO DAILY 12/28/16 [History] Cinnamon Bark [Cinnamon] 500 mg PO BID 12/28/16 [History] Donepezil [Aricept] 10 mg PO HS 12/28/16 [History] Memantine HCl 10 mg PO DAILY 12/28/16 [History] Pantoprazole Sodium [Protonix] 40 mg PO DAILY 12/28/16 [History] Sertraline [Zoloft] 50 mg PO DAILY 12/28/16 [History] Amoxicillin/Clavulanate [Augmentin] 875 mg PO BID 04/22/17 [History] Aspirin 81 mg PO DAILY 04/22/17 [History] Cranberry 500 mg PO DAILY 04/22/17 [History] Lactobacillus Acidophilus [Acidophilus Probiotic] 1 mg PO DAILY 04/22/17 [ History] Allergies No Known Allergies Allergy (Verified 04/22/17 14:34) Review of Systems - Constitutional Constitutional ROS IM: no photophobia, no phonophobia, no daytime sleepiness, no fever(s), no stops breathing during sleep - Cardiovascular Cardiovascular ROS: no chest pain, no leg edema, no lightheadedness - Respiratory Respiratory: no pain on inspiration, no pain with cough - Musculoskeletal Musculoskeletal ROS: as per HPI - Integumentary Integumentary: no erythema, no lesions, no swelling Physical Exam Initial Vital Signs Temp Pulse Resp BP Pulse Ox 97.6 F 74 18 123/75 97 04/22/17 10:26 04/22/17 10:26 04/22/17 10:26 04/22/17 10:26 04/22/17 10:26 - General physical appearance General physical appearance: awake & oriented - Eyes Eye exam: normal ocular movement - Neurologic normal coordination - Musculoskeletal Musculoskeletal: other (mild right SI joint tenderness to palpation. Normal strength noted.) Results - Labs 04/22/17 11:19 04/22/17 11:18 Abnormal lab results RDW 14.8 % (11.5-14.5) H 04/22/17 11:19 Potassium 4.8 mEq/L (3.5-4.5) H 04/22/17 11:18 Creatinine 1.58 mg/dL (0.72-1.25) H 04/22/17 11:18 Est GFR ( Amer) 51 (> 60) L 04/22/17 11:18 Est GFR (Non-Af Amer) 42 (> 60) L 04/22/17 11:18 Glucose 199 mg/dL (70-99) H 04/22/17 11:18 Alkaline Phosphatase 165 Units/L (38-126) H 04/22/17 11:18 Troponin I 0.04 ng/mL (0-0.03) H* 04/22/17 11:19 Albumin 3.0 g/dL (3.5-5.0) L 04/22/17 11:18 Globulin 5.1 g/dL (2.4-3.5) H 04/22/17 11:18 Albumin/Globulin Ratio 0.6 (1.1-2.2) L 04/22/17 11:18 Urine Clarity Cloudy (Clear) A 04/22/17 11:57 Ur Specific [place] 1.027 (1.010-1.025) H 04/22/17 11:57 Urine Bilirubin Small (Negative) H 04/22/17 11:57 Ur Leukocyte Esterase Moderate (Negative) H 04/22/17 11:57 Urine Microscopic RBC 3-5 per hpf (0-3) H 04/22/17 11:57 Urine Microscopic WBC 30-50 per hpf (0-3) H 04/22/17 11:57 Ur Squamous Epith Cells Many per lpf (None-Few) H 04/22/17 11:57 Ur Culture Indicated? YES (NO) A 04/22/17 11:57 All other labs normal. - Imaging Additional studies: reviewed lumbar CT scan from today Consult Discharge Plan - Plan Referrals: Danny Walker MD [Primary Care Provider] -
[2017-04-22] MEDS ORDERED: *HR* Dextrose 50 % in Water (Syg) 50 ML SYRINGE IVP PRN (19:44)
[2017-04-22] MEDS ORDERED: D5% in Water 1,000 ML IVC PRN (19:44)
[2017-04-22] MEDS ORDERED: Dextrose Gel 15 GM PO PRN ×2 (19:44)
[2017-04-22] MEDS: Insulin LISPRO 300 UNITS/3 ML VIAL SQ SCH (21:04)
[2017-04-22] MEDS ORDERED: *HR* Heparin 5,000 UNIT/ML VIAL SQ SCH (22:00)
[2017-04-23 00:17] LABS: Basophils % 0.7 %; Eosinophils # 0.1 K/mcL (0.0-0.6); Eosinophils % 1.7 %; Hematocrit 43.3 % (37.5-50.1); Hemoglobin 14.1 g/dL (12.9-16.9); Immature Granulocytes % 0.8 % (0-4); Immature Platelets 3.7 % (1.1-6.1); Lymphocytes # 1.6 K/mcL (0.6-4.6); Lymphocytes % 27.4 %; Mean Corpuscular HGB Conc 32.6 g/dL (31.6-35.5); Mean Corpuscular Hemoglobin 29.1 pg (28.0-33.3); Mean Corpuscular Volume 89.5 fL (83.0-100.0); Mean Platelet Volume 9.4 fL (9.4-12.4); Monocytes # 0.7 K/mcL (0.0-1.3); Monocytes % 11.3 %; Neutrophils # 3.5 K/mcL (1.6-8.9); Platelet Count 206 K/mcL (140-400); Red Blood Count 4.84 M/mcL (4.19-5.50); Red Cell Distribution Width 14.7 % (11.5-14.5); Segmented Neutrophils % 58.1 %
[2017-04-23 00:21] LABS: INR 1.1; Prothrombin Time 11.9 Seconds (9.4-12.1)
[2017-04-23 00:24] LABS: Activated Partial Thrombo Time 26.4 Seconds (26.0-36.0)
[2017-04-23 00:31] LABS: Alanine Aminotransferase 31 Units/L (0-55); Albumin 2.6 g/dL (3.5-5.0); Albumin/Globulin Ratio 0.6 (1.1-2.2); Alkaline Phosphatase 146 Units/L (38-126); Aspartate Amino Transferase 25 Units/L (5-34); BUN/Creatinine Ratio 13 (6-26); Bilirubin,Total 0.4 mg/dL (0.2-1.2); Blood Urea Nitrogen 18 mg/dL (8-26); Calcium 8.9 mg/dL (8.6-10.8); Carbon Dioxide 24 mEq/L (19-29); Chloride 102 mEq/L (98-109); Chol/HDL Ratio 7.1 (0-4.9); Cholesterol 207 mg/dL (< 200); Globulin 4.6 g/dL (2.4-3.5); Glucose 161 mg/dL (70-99); HDL Cholesterol 29 mg/dL (40-59); LDL Cholesterol,Calculated 144 mg/dL (0-99); Magnesium 2.1 mg/dL (1.6-2.6); Osmolality,Calculated 281 (280-300); Sodium 133 mEq/L (136-145); Total Protein 7.2 g/dL (6.0-8.3); Triglycerides 171 mg/dL (< 150); eGFR For African Americans > 60 (> 60); eGFR For Non-African Americans 50 (> 60)
[2017-04-23 00:44] LABS: Potassium 4.6 mEq/L (3.5-4.5)
[2017-04-23] MEDS: Insulin LISPRO 300 UNITS/3 ML VIAL SQ SCH ×4 (08:10→21:19)
[2017-04-23] MEDS: Pantoprazole 40 MG VIAL IVP SCH (08:11)
[2017-04-23] MEDS: Aspirin 81 MG TAB.CHEW PO SCH (08:11)
[2017-04-23] MEDS: Lactobacillus 1 EACH CAP.SPRINK PO SCH (08:11)
--- NOTE | 2017-04-23 09:50 | Urology - Consult Note ---
Date of Encounter: 04/23/17 Time of Encounter: 09:48 - Assessment and Plan (1) Hydronephrosis Current Visit: Yes Status: Acute Assessment and plan: I reviewed the CT scan which was noncontrast. There does appear to be some hydronephrosis but I actually suspect that a large peripelvic cyst is contributing to the confusion that he has a larger amount of hydronephrosis but he actually has. There are vascular calcifications but no evidence of a ureteral calculi. Chronic ureteropelvic junction obstruction or ureteral stricture needs to be considered. I do not feel that the findings are clinically significant. Okay to follow as an outpatient. Bilateral renal calculi are nonobstructing and can be observed. They may be contributing to his recent UTI as they were Proteus. May need to consider future procedures if UTIs persist. No urologic intervention required Qualifiers: Hydronephrosis type: other Qualified Code(s): N13.39 - Other hydronephrosis (2) Nephrolithiasis Current Visit: Yes Status: Acute Urology CN:HPI Consult date: 04/23/17 Reason for consult Urology: Hydronephrosis History of present illness: New patient to be urology practice. Admitted for a back fracture. Incidental finding of right ureteropelvic junction obstruction and hydronephrosis. Bilateral nonobstructing renal calculi. Patient reports no flank pain. No difficulty urinating. Distant history of "problems with the kidneys " unable to going to further detail Past Med Surg Social Fam HX - Past Medical History Medical history: dementia, diabetes Psychiatric history: no psych history - Past Surgical History Surgical History: appendectomy - Social History Smoking Status: Former smoker Smokeless Tobacco Status: No Alcohol use: none Drug use: none - Family History Father Race: Family Member Ethnicity: Non- Living Status: Age at : 65 Cause of : Emphysema Hx Family Respiratory Disorders: Yes (Emphysema) Mother Race: Family Member Ethnicity: Non- Living Status: Age at : 52 Cause of : Lung cancer Hx Family Cancer: Yes (Lung) Brother Race: Family Member Ethnicity: Non- Living Status: Still Living Hx Family Cardiac Disorders: Yes (HD) Sister Race: Family Member Ethnicity: Non- Living Status: Age at : 58 Cause of : Leukemia Hx Family Cancer: Yes (Leukemia) Medications and Allergies Atenolol [Tenormin] 75 mg PO DAILY 12/28/16 [History] Cinnamon Bark [Cinnamon] 500 mg PO BID 12/28/16 [History] Donepezil [Aricept] 10 mg PO HS 12/28/16 [History] Memantine HCl 10 mg PO DAILY 12/28/16 [History] Pantoprazole Sodium [Protonix] 40 mg PO DAILY 12/28/16 [History] Sertraline [Zoloft] 50 mg PO DAILY 12/28/16 [History] Amoxicillin/Clavulanate [Augmentin] 875 mg PO BID 04/22/17 [History] Aspirin 81 mg PO DAILY 04/22/17 [History] Cranberry 500 mg PO DAILY 04/22/17 [History] Lactobacillus Acidophilus [Acidophilus Probiotic] 1 mg PO DAILY 04/22/17 [ History] Allergies No Known Allergies Allergy (Verified 04/22/17 14:34) Review of Systems - Constitutional no chills, no malaise - EENT Nose, mouth and throat: no dizziness - Cardiovascular no chest pain - Respiratory no cough - Gastrointestinal no nausea - Genitourinary no flank pain - Musculoskeletal back pain - Integumentary no erythema - Neurological no confusion - Psychiatric no anxiety - Hematologic/Lymphatic no easy bleeding - Allergic/Immunologic no throat swelling Exam Initial Vital Signs Temp Pulse Resp BP Pulse Ox 97.6 F 74 18 123/75 97 04/22/17 10:26 04/22/17 10:26 04/22/17 10:26 04/22/17 10:26 04/22/17 10:26 - General physical appearance Present: well developed, no distress, other (Somewhat disheveled looking) - Eyes Present: PERRL - ENT Present: normal nares - Neck Present: no masses - Respiratory Present: normal respiratory effort - Abdomen Abdomen: Present: soft - Integumentary Present: no rash - Neurologic Present: normal coordination, confused (Doesn't answer all questions appropriately). Absent: disoriented - Musculoskeletal Present: other Urology Results - Labs 04/23/17 00:06 04/23/17 00:06 Abnormal lab results RDW 14.7 % (11.5-14.5) H 04/23/17 00:06 Sodium 133 mEq/L (136-145) L 04/23/17 00:06 Potassium 4.6 mEq/L (3.5-4.5) H 04/23/17 00:06 Creatinine 1.36 mg/dL (0.72-1.25) H 04/23/17 00:06 Est GFR (Non-Af Amer) 50 (> 60) L 04/23/17 00:06 Glucose 161 mg/dL (70-99) H 04/23/17 00:06 POC Glucose 153 (58-89) H 04/22/17 21:03 Alkaline Phosphatase 146 Units/L (38-126) H 04/23/17 00:06 Troponin I 0.04 ng/mL (0-0.03) H* 04/23/17 00:06 B-Natriuretic Peptide 143 pg/mL (0-100) H 04/23/17 00:06 Albumin 2.6 g/dL (3.5-5.0) L 04/23/17 00:06 Globulin 4.6 g/dL (2.4-3.5) H 04/23/17 00:06 Albumin/Globulin Ratio 0.6 (1.1-2.2) L 04/23/17 00:06 Triglycerides 171 mg/dL (< 150) H 04/23/17 00:06 Cholesterol 207 mg/dL (< 200) H 04/23/17 00:06 LDL Cholesterol, Calc 144 mg/dL (0-99) H 04/23/17 00:06 VLDL Cholesterol, Calc 34 mg/dL (< 31) H 04/23/17 00:06 HDL Cholesterol 29 mg/dL (40-59) L 04/23/17 00:06 Cholesterol/HDL Ratio 7.1 (0-4.9) H 04/23/17 00:06 Urine Clarity Cloudy (Clear) A 04/22/17 11:57 Ur Specific [place] 1.027 (1.010-1.025) H 04/22/17 11:57 Urine Bilirubin Small (Negative) H 04/22/17 11:57 Ur Leukocyte Esterase Moderate (Negative) H 04/22/17 11:57 Urine Microscopic RBC 3-5 per hpf (0-3) H 04/22/17 11:57 Urine Microscopic WBC 30-50 per hpf (0-3) H 04/22/17 11:57 Ur Squamous Epith Cells Many per lpf (None-Few) H 04/22/17 11:57 Ur Culture Indicated? YES (NO) A 04/22/17 11:57 Diabetes panel 04/23/17 Range/Units 00:06 Sodium 133 L (136-145) mEq/L Potassium 4.6 H (3.5-4.5) mEq/L Chloride 102 (98-109) mEq/L Carbon Dioxide 24 (19-29) mEq/L BUN 18 (8-26) mg/dL Creatinine 1.36 H (0.72-1.25) mg/dL Glucose 161 H (70-99) mg/dL Calcium 8.9 (8.6-10.8) mg/dL AST 25 (5-34) Units/L ALT 31 (0-55) Units/L Alkaline Phosphatase 146 H (38-126) Units/L Albumin 2.6 L (3.5-5.0) g/dL Triglycerides 171 H (< 150) mg/dL HDL Cholesterol 29 L (40-59) mg/dL Calcium panel 04/23/17 Range/Units 00:06 Calcium 8.9 (8.6-10.8) mg/dL Albumin 2.6 L (3.5-5.0) g/dL Pituitary panel 04/23/17 Range/Units 00:06 Sodium 133 L (136-145) mEq/L Potassium 4.6 H (3.5-4.5) mEq/L Chloride 102 (98-109) mEq/L Carbon Dioxide 24 (19-29) mEq/L BUN 18 (8-26) mg/dL Creatinine 1.36 H (0.72-1.25) mg/dL Glucose 161 H (70-99) mg/dL Calcium 8.9 (8.6-10.8) mg/dL Adrenal panel 04/23/17 Range/Units 00:06 Sodium 133 L (136-145) mEq/L Potassium 4.6 H (3.5-4.5) mEq/L Chloride 102 (98-109) mEq/L Carbon Dioxide 24 (19-29) mEq/L BUN 18 (8-26) mg/dL Creatinine 1.36 H (0.72-1.25) mg/dL Glucose 161 H (70-99) mg/dL Calcium 8.9 (8.6-10.8) mg/dL Total Bilirubin 0.4 (0.2-1.2) mg/dL AST 25 (5-34) Units/L ALT 31 (0-55) Units/L Alkaline Phosphatase 146 H (38-126) Units/L Albumin 2.6 L (3.5-5.0) g/dL All other labs normal. Consult Discharge Plan - Plan Referrals: Danny Walker MD [Primary Care Provider] -
--- NOTE | 2017-04-23 15:09 | Internal Med Progress Note ---
Date of Encounter: 04/23/17 Time of Encounter: 15:03 - Assessment and plan (1) UTI (urinary tract infection) Current Visit: Yes Status: Acute Assessment and plan: will continue IV ceftraxone for now f/u urine cx Qualifiers: Urinary tract infection type: site unspecified Hematuria presence: with hematuria Qualified Code(s): N39.0 - Urinary tract infection, site not specified; R31.9 - Hematuria, unspecified (2) Diabetes Current Visit: Yes Status: Chronic Assessment and plan: will continue humalog sliding scale. monitor finger sticks. 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 (4) Nephrolithiasis Current Visit: Yes Status: Acute (5) Acute back pain Current Visit: Yes Status: Acute Assessment and plan: seen by pain mx, appreciate recommendations as per DR. Farmer, The patient has no significant tenderness over the L4 spinous process. This may be an old injury to L4 dating back to his fall in 1984. recommend conservative management, not kyphoplasty, and once symptoms are stable - outpatient follow up. Qualifiers: Back pain location: low back pain Back pain laterality: unspecified Sciatica presence: without sciatica Qualified Code(s): M54.5 - Low back pain - Subjective Interval history: patient admitted for severe back pain, seen aat the bedside, reports that the pain is much better today Denies any other complaints PT/OT is consulted , will follow recommendations, may need placement. - Constitutional Vitals: Temp Pulse Resp BP Pulse Ox 97.6 F 74 16 104/70 100 04/23/17 11:01 04/23/17 11:01 04/23/17 11:01 04/23/17 11:01 04/23/17 11:01 General appearance: Present: cooperative, A&O X 3, no acute distress, answers questions appropriately Exam: - Head Head exam: Present: atraumatic, normocephalic - Eye Eye exam: Present: PERRL, conjuntiva pink, sclera anicteric Pupils: Present: PERRL - ENT ENT exam: Present: normal exam, normal external ear exam - Neck Neck exam general surgery: Present: normal inspection, supple, trachea midline - Respiratory Respiratory exam: Present: CTAB. Absent: accessory muscle use, rales, rhonchi, wheezes - Cardiovascular Cardiovascular exam: Present: RRR, +S1, +S2. Absent: diastolic murmur, gallop, rubs, systolic murmur - GI/Abdominal GI/Abdominal exam: Present: normal bowel sounds, soft, no peritoneal signs. Absent: distended, tenderness - Rectal Rectal exam: Present: deferred - Additional comments: exam deferred. - Extremities Exam Extremities exam: Present: normal inspection, warm, radial pulses palpable and symetrical. Absent: calf tenderness, cyanotic, pedal edema - Back Exam Back exam: Present: tenderness, vertebral tenderness - Neurological Exam Neurological exam: Present: CN II-XII intact, oriented X3, no focal deficits. 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 - Psychiatric Psychiatric exam: Present: normal affect, normal mood - Skin Skin exam: Present: dry, intact Internal Medicine: Result - Labs CBC & Chem 7: 04/23/17 00:06 04/23/17 00:06 Labs: Short CBC 04/23/17 Range/Units 00:06 WBC 5.9 (4.3-11.1) K/mcL Hgb 14.1 (12.9-16.9) g/dL Hct 43.3 (37.5-50.1) % Plt Count 206 (140-400) K/mcL Neutrophils # 3.5 (1.6-8.9) K/mcL BMP 04/23/17 00:06 Sodium 133 L Potassium 4.6 H Chloride 102 Carbon Dioxide 24 BUN 18 Creatinine 1.36 H Glucose 161 H Calcium 8.9 Cardiac Enzymes 04/22/17 04/23/17 Range/Units 17:39 00:06 Troponin I 0.05 H* 0.04 H* (0-0.03) ng/mL Liver Function 04/23/17 Range/Units 00:06 Total Bilirubin 0.4 (0.2-1.2) mg/dL AST 25 (5-34) Units/L ALT 31 (0-55) Units/L Alkaline Phosphatase 146 H (38-126) Units/L Albumin 2.6 L (3.5-5.0) g/dL - ABG Interpretation ABG results: PT/INR, D-dimer PT 11.9 Seconds (9.4-12.1) 04/23/17 00:06 Consult Discharge Plan - Plan Referrals: Danny Walker MD [Primary Care Provider] -
[2017-04-24] MEDS: *HR* HYDROcodone/Acet 5/325 mg TABLET PO PRN (03:46)
[2017-04-24] MEDS: Pantoprazole 40 MG VIAL IVP SCH (08:02)
[2017-04-24] MEDS: Aspirin 81 MG TAB.CHEW PO SCH (08:02)
[2017-04-24] MEDS: Lactobacillus 1 EACH CAP.SPRINK PO SCH (08:02)
[2017-04-24] MEDS: Insulin LISPRO 300 UNITS/3 ML VIAL SQ SCH ×4 (08:09→21:59)
--- NOTE | 2017-04-24 08:40 | Electrocardiograph Report ---
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
--- NOTE | 2017-04-24 12:03 | Critical Care Progress Note ---
Critical Care Note - Narrative Summary: The high probability of a clinically significant, sudden or life threatening deterioration of the patient's condition required my full and direct attention, intervention and personal management.
--- NOTE | 2017-04-24 12:12 | Internal Med Progress Note ---
Date of Encounter: 04/24/17 Time of Encounter: 12:10 - Assessment and plan (1) UTI (urinary tract infection) Current Visit: Yes Status: Acute Assessment and plan: will stop IV ceftraxone . urine cx shows no growth. Qualifiers: Urinary tract infection type: site unspecified Hematuria presence: with hematuria Qualified Code(s): N39.0 - Urinary tract infection, site not specified; R31.9 - Hematuria, unspecified (2) Diabetes Current Visit: Yes Status: Chronic Assessment and plan: will continue humalog sliding scale. monitor finger sticks. Qualifiers: Diabetes mellitus type: other specified (including RAHUL) Diabetes mellitus complication status: with unspecified complications Diabetes mellitus longterm insulin use: without longterm use Qualified Code(s): E13.8 - Other specified diabetes mellitus with unspecified complications (3) Hydronephrosis concurrent with and due to ureteral stricture Current Visit: Yes Status: Acute Assessment and plan: as per urology, the obstruction is chronic and no intervention required at this time. (4) Nephrolithiasis Current Visit: Yes Status: Acute (5) Acute back pain Current Visit: Yes Status: Acute Assessment and plan: seen by pain mx, appreciate recommendations as per DR. Farmer, The patient has no significant tenderness over the L4 spinous process. This may be an old injury to L4 dating back to his fall in 1984. recommend conservative management, not kyphoplasty, and once symptoms are stable - outpatient follow up. Qualifiers: Back pain location: low back pain Back pain laterality: unspecified Sciatica presence: without sciatica Qualified Code(s): M54.5 - Low back pain - Subjective Interval history: patient admitted for severe back pain, seen at the bedside, reports that the pain is much better today Denies any other complaints PT/OT is consulted , will follow recommendations, may need placement. - Constitutional Vitals: Temp Pulse Resp BP Pulse Ox 98.1 F 64 16 105/68 98 04/24/17 11:47 04/24/17 11:47 04/24/17 11:47 04/24/17 11:47 04/24/17 11:47 General appearance: Present: cooperative, A&O X 3, no acute distress, answers questions appropriately Exam: - Head Head exam: Present: atraumatic, normocephalic - Eye Eye exam: Present: PERRL, conjuntiva pink, sclera anicteric Pupils: Present: PERRL - ENT ENT exam: Present: normal exam, normal external ear exam - Neck Neck exam general surgery: Present: normal inspection, supple, trachea midline - Respiratory Respiratory exam: Present: CTAB. Absent: accessory muscle use, rales, rhonchi, wheezes - Cardiovascular Cardiovascular exam: Present: RRR, +S1, +S2. Absent: diastolic murmur, gallop, rubs, systolic murmur - GI/Abdominal GI/Abdominal exam: Present: normal bowel sounds, soft, no peritoneal signs. Absent: distended, tenderness - Extremities Exam Extremities exam: Present: normal inspection, warm, radial pulses palpable and symetrical. Absent: calf tenderness, cyanotic, pedal edema - Back Exam Back exam: Present: tenderness, vertebral tenderness - Neurological Exam Neurological exam: Present: CN II-XII intact, oriented X3, no focal deficits. Absent: pronater drift, facial droop, speech deficit - Psychiatric Psychiatric exam: Present: normal affect, normal mood - Skin Skin exam: Present: dry, intact Internal Medicine: Result - Labs CBC & Chem 7: 04/23/17 00:06 04/23/17 00:06 - ABG Interpretation ABG results: PT/INR, D-dimer PT 11.9 Seconds (9.4-12.1) 04/23/17 00:06 - VTE Documentation of Mechanical Device: Graduated compression elastic hosiery Consult Discharge Plan - Plan Referrals: Danny Walker MD [Primary Care Provider] -
[2017-04-25] MEDS: Lactobacillus 1 EACH CAP.SPRINK PO SCH (08:50)
[2017-04-25] MEDS: Pantoprazole 40 MG VIAL IVP SCH (08:51)
[2017-04-25] MEDS: Insulin LISPRO 300 UNITS/3 ML VIAL SQ SCH ×4 (08:51→21:17)
[2017-04-25] MEDS: Aspirin 81 MG TAB.CHEW PO SCH (08:51)
[2017-04-25 10:35] LABS: Calcium 8.9 mg/dL (8.6-10.8); Potassium 4.5 mEq/L (3.5-4.5)
--- NOTE | 2017-04-25 14:32 | Internal Med Progress Note ---
Date of Encounter: 04/25/17 Time of Encounter: 14:30 - Assessment and plan (1) UTI (urinary tract infection) Current Visit: Yes Status: Acute Assessment and plan: stop IV ceftraxone . urine cx shows no growth. Qualifiers: Urinary tract infection type: site unspecified Hematuria presence: with hematuria Qualified Code(s): N39.0 - Urinary tract infection, site not specified; R31.9 - Hematuria, unspecified (2) Diabetes Current Visit: Yes Status: Chronic Assessment and plan: will continue humalog sliding scale. monitor finger sticks. Qualifiers: Diabetes mellitus type: other specified (including RAHUL) Diabetes mellitus complication status: with unspecified complications Diabetes mellitus penitentiary insulin use: without videotape sales representative use Qualified Code(s): E13.8 - Other specified diabetes mellitus with unspecified complications (3) Hydronephrosis concurrent with and due to ureteral stricture Current Visit: Yes Status: Acute Assessment and plan: as per urology, the obstruction is chronic and no intervention required at this time. (4) Nephrolithiasis Current Visit: Yes Status: Acute (5) Acute back pain Current Visit: Yes Status: Acute Assessment and plan: seen by pain mx, appreciate recommendations as per DR. Farmer, The patient has no significant tenderness over the L4 spinous process. This may be an old injury to L4 dating back to his fall in 1984. recommend conservative management, not kyphoplasty, and once symptoms are stable - outpatient follow up. will need EC[facility] placement as per Pt/OT, await social work for placement Qualifiers: Back pain location: low back pain Back pain laterality: unspecified Sciatica presence: without sciatica Qualified Code(s): M54.5 - Low back pain - Subjective Interval history: patient admitted for severe back pain, seen at the bedside, reports that the pain is much better. Denies any other complaints PT/OT is consulted, recommends ECF , will need 3 days stay, will possible get approval on . - Constitutional Vitals: Temp Pulse Resp BP Pulse Ox 97.9 F 76 18 120/79 97 04/25/17 11:02 04/25/17 11:02 04/25/17 11:02 04/25/17 11:02 04/25/17 11:02 General appearance: Present: cooperative, A&O X 3, no acute distress, answers questions appropriately Exam: - Head Head exam: Present: atraumatic, normocephalic - Eye Eye exam: Present: PERRL, conjuntiva pink, sclera anicteric Pupils: Present: PERRL - ENT ENT exam: Present: normal exam, normal external ear exam - Neck Neck exam general surgery: Present: normal inspection, supple, trachea midline - Respiratory Respiratory exam: Present: CTAB. Absent: accessory muscle use, rales, rhonchi, wheezes - Cardiovascular Cardiovascular exam: Present: RRR, +S1, +S2. Absent: diastolic murmur, gallop, rubs, systolic murmur - GI/Abdominal GI/Abdominal exam: Present: normal bowel sounds, soft, no peritoneal signs. Absent: distended, tenderness - Extremities Exam Extremities exam: Present: normal inspection, warm, radial pulses palpable and symetrical. Absent: calf tenderness, cyanotic, pedal edema - Back Exam Back exam: Present: tenderness, vertebral tenderness - Neurological Exam Neurological exam: Present: CN II-XII intact, oriented X3, no focal deficits. Absent: pronater drift, facial droop, speech deficit - Psychiatric Psychiatric exam: Present: normal affect, normal mood - Skin Skin exam: Present: dry, intact Internal Medicine: Result - Labs CBC & Chem 7: 04/23/17 00:06 04/25/17 09:55 - ABG Interpretation ABG results: PT/INR, D-dimer PT 11.9 Seconds (9.4-12.1) 04/23/17 00:06 - VTE Documentation of Mechanical Device: Graduated compression elastic hosiery Consult Discharge Plan - Plan Referrals: Danny Walker MD [Primary Care Provider] -
[2017-04-26] MEDS: Pantoprazole 40 MG VIAL IVP SCH (08:57)
[2017-04-26] MEDS: Insulin LISPRO 300 UNITS/3 ML VIAL SQ SCH ×4 (08:57→22:10)
[2017-04-26] MEDS: Lactobacillus 1 EACH CAP.SPRINK PO SCH (08:58)
[2017-04-26] MEDS: Aspirin 81 MG TAB.CHEW PO SCH (08:58)
--- NOTE | 2017-04-26 15:28 | Discharge Summary ---
Date of Encounter: 04/26/17 Time of Encounter: 15:23 - Discharge Diagnosis (1) UTI (urinary tract infection) Priority: Primary Status: Acute Comments: Patient was admitted with UTI. He has history of frequent UTI. Cultures negative. Sputum cultures were negative admitting Darren has taken off patient off IV antibiotic with Rocephin. Patient seems to be doing okay without antibiotic for more than 24 hours. Qualifiers: Urinary tract infection type: site unspecified Hematuria presence: with hematuria Qualified Code(s): N39.0 - Urinary tract infection, site not specified; R31.9 - Hematuria, unspecified (2) Diabetes Priority: Secondary Status: Chronic Comments: Accu-Chek 4 times a day with sliding insulin coverage. Qualifiers: Diabetes mellitus type: other specified (including RAHUL) Diabetes mellitus complication status: with unspecified complications Diabetes mellitus director long term care insulin use: without chcf use Qualified Code(s): E13.8 - Other specified diabetes mellitus with unspecified complications (3) Hydronephrosis concurrent with and due to ureteral stricture Priority: Secondary Status: Acute Comments: CAT scan showed possibility of hydronephrosis however urology were consulted and did they felt that patient does not have hydronephrosis cirrhosis but it was an artifact due to possible pelvic cyst. urology plans to see the patient as outpatient. (4) Acute back pain Priority: Secondary Status: Chronic Comments: Patient has history of chronic back pain due to lumbar spondylosis and degenerative disc disease. Qualifiers: Back pain location: low back pain Back pain laterality: unspecified Sciatica presence: without sciatica Qualified Code(s): M54.5 - Low back pain (5) CKD (chronic kidney disease) stage 3, GFR 30-59 ml/min Priority: Secondary Status: Acute Comments: Patient has underlying C daily and during this admission his creatinine actually did came down to 1.49. - Discharge Medications Home Medications: Atenolol [Tenormin] 75 mg PO DAILY 12/28/16 [History] Cinnamon Bark [Cinnamon] 500 mg PO BID 12/28/16 [History] Donepezil [Aricept] 10 mg PO HS 12/28/16 [History] Memantine HCl 10 mg PO DAILY 12/28/16 [History] Pantoprazole Sodium [Protonix] 40 mg PO DAILY 12/28/16 [History] Sertraline [Zoloft] 50 mg PO DAILY 12/28/16 [History] Aspirin 81 mg PO DAILY 04/22/17 [History] Cranberry 500 mg PO DAILY 04/22/17 [History] Lactobacillus Acidophilus [Acidophilus Probiotic] 1 mg PO DAILY 04/22/17 [ History] Acetaminophen [Tylenol] 650 mg PO Q6HR PRN #0 tablet 04/26/17 [Rx] Allergies/Adverse Reactions: Allergies No Known Allergies Allergy (Verified 04/22/17 14:34) Date of admission: 04/25/17 13:32 Primary care physician: Danny Walker MD Discharging clinician: Tomasz Hughes Anticipated date of discharge: 04/26/17 - Patient Status Disposition: Home, Self-Care Condition: Fair - Discharge Instructions Follow Up With: Danny Walker MD [Primary Care Provider] - Hospital course: Mr. Price is a 82 year old male was admitted back pain. Apparently he has chronic DJD and lumbar spondylosis problem. There was a concern if he had UTI and therefore IV Rocephin was started. Urine culture turned out to be negative and therefore admitting M.D. decided to stop IV Rocephin. This almost 24 hours since the Rocephin has been stopped and patient has been doing well before he can be discharged with instruction to keep an eye on his symptoms and if he develops fever or dysuria urgency frequency or hematuria or any other symptom he should report to his family doctor or to the ER right away. - Time Spent with Patient Total time spent providing and/or coordinating discharge services: Greater than 30 minutes - Constitutional Vitals: Temp Pulse Resp BP Pulse Ox 98.8 F 72 16 101/66 96 04/26/17 15:14 04/26/17 15:14 04/26/17 15:14 04/26/17 15:14 04/26/17 10:50 General appearance: Present: cooperative, A&O X 3, no acute distress, answers questions appropriately - Head Head exam: Present: atraumatic, normocephalic - Eye Eye exam: Present: PERRL, conjuntiva pink, sclera anicteric Pupils: Present: PERRL - Neck Neck exam general surgery: Present: supple, trachea midline. Absent: lymphadenopathy - Respiratory Respiratory exam: Present: CTAB. Absent: accessory muscle use, rales, rhonchi, wheezes - Cardiovascular Cardiovascular exam: Present: RRR, +S1, +S2. Absent: diastolic murmur, gallop, rubs, systolic murmur - GI/Abdominal GI/Abdominal exam: Present: normal bowel sounds, soft, no peritoneal signs. Absent: distended, tenderness - Extremities Exam Extremities exam: Present: warm, radial pulses palpable and symetrical. Absent : calf tenderness, cyanotic, pedal edema - Neurological Exam Neurological exam: Present: CN II-XII intact, oriented X3, no focal deficits. Absent: pronater drift, facial droop, speech deficit - Skin Skin exam: Present: dry, intact - VTE Documentation of Mechanical Device: Graduated compression elastic hosiery
[2017-04-27] MEDS: Insulin LISPRO 300 UNITS/3 ML VIAL SQ SCH ×4 (09:25→20:09)
[2017-04-27] MEDS: Lactobacillus 1 EACH CAP.SPRINK PO SCH (09:26)
[2017-04-27] MEDS: Pantoprazole 40 MG VIAL IVP SCH (09:26)
[2017-04-27] MEDS: Aspirin 81 MG TAB.CHEW PO SCH (09:27)
--- NOTE | 2017-04-27 14:08 | Discharge Summary ---
Date of Encounter: 05/05/17 Time of Encounter: 14:08 - Discharge Diagnosis (1) UTI (urinary tract infection) Status: Acute Qualifiers: Urinary tract infection type: site unspecified Hematuria presence: with hematuria Qualified Code(s): N39.0 - Urinary tract infection, site not specified; R31.9 - Hematuria, unspecified (2) Diabetes Status: Chronic Qualifiers: Diabetes mellitus type: other specified (including RAHUL) Diabetes mellitus complication status: with unspecified complications Diabetes mellitus buttermaker continuous churn insulin use: without halfway use Qualified Code(s): E13.8 - Other specified diabetes mellitus with unspecified complications (3) Hydronephrosis concurrent with and due to ureteral stricture Status: Acute (4) Acute back pain Status: Chronic Qualifiers: Back pain location: low back pain Back pain laterality: unspecified Sciatica presence: without sciatica Qualified Code(s): M54.5 - Low back pain (5) CKD (chronic kidney disease) stage 3, GFR 30-59 ml/min Status: Acute - Discharge Medications Home Medications: Atenolol [Tenormin] 75 mg PO DAILY 12/28/16 [History] Cinnamon Bark [Cinnamon] 500 mg PO BID 12/28/16 [History] Donepezil [Aricept] 10 mg PO HS 12/28/16 [History] Memantine HCl 10 mg PO DAILY 12/28/16 [History] Pantoprazole Sodium [Protonix] 40 mg PO DAILY 12/28/16 [History] Sertraline [Zoloft] 50 mg PO DAILY 12/28/16 [History] Aspirin 81 mg PO DAILY 04/22/17 [History] Cranberry 500 mg PO DAILY 04/22/17 [History] Lactobacillus Acidophilus [Acidophilus Probiotic] 1 mg PO DAILY 04/22/17 [ History] Acetaminophen [Tylenol] 650 mg PO Q6HR PRN #0 tablet 04/26/17 [Rx] Allergies/Adverse Reactions: Allergies No Known Allergies Allergy (Verified 04/22/17 14:34) Date of admission: 04/25/17 13:32 Primary care physician: Danny Walker MD - Patient Status Disposition: Home, Self-Care Condition: Fair - Discharge Instructions Follow Up With: Connor Alcala DO [Partnered Physician] - 05/12/17 2:00 pm (MAY 12, 2017 AT 2:00PM) Sam Wright MD [Partnered Physician] - (WEB REQUEST MADE) Danny Walker MD [Primary Care Provider] - 05/05/17 10:00 am Hospital course: Mr. Price is a 82 year old male - Time Spent with Patient Total time spent providing and/or coordinating discharge services: - Constitutional Vitals: Temp Pulse Resp BP Pulse Ox 97.4 F L 67 16 128/78 97 04/27/17 11:13 04/27/17 11:13 04/27/17 11:13 04/27/17 11:13 04/27/17 11:13 General appearance: Present: cooperative, A&O X 3, no acute distress, answers questions appropriately - VTE Documentation of Mechanical Device: Graduated compression elastic hosiery
--- NOTE | 2017-04-27 14:13 | Internal Med Progress Note ---
Date of Encounter: 04/27/17 Time of Encounter: 14:11 - Assessment and plan (1) UTI (urinary tract infection) Current Visit: Yes Status: Acute Assessment and plan: stop IV ceftraxone . urine cx shows no growth. Qualifiers: Urinary tract infection type: site unspecified Hematuria presence: with hematuria Qualified Code(s): N39.0 - Urinary tract infection, site not specified; R31.9 - Hematuria, unspecified (2) Diabetes Current Visit: Yes Status: Chronic Assessment and plan: will continue humalog sliding scale. monitor finger sticks. Qualifiers: Diabetes mellitus type: other specified (including RAHUL) Diabetes mellitus complication status: with unspecified complications Diabetes mellitus mcc insulin use: without terminal worker use Qualified Code(s): E13.8 - Other specified diabetes mellitus with unspecified complications (3) Hydronephrosis concurrent with and due to ureteral stricture Current Visit: Yes Status: Acute Assessment and plan: as per urology, the obstruction is chronic and no intervention required at this time. (4) Acute back pain Current Visit: Yes Status: Chronic Assessment and plan: seen by pain mx, appreciate recommendations as per DR. Farmer, The patient has no significant tenderness over the L4 spinous process. This may be an old injury to L4 dating back to his fall in 1984. recommend conservative management, not kyphoplasty, and once symptoms are stable - outpatient follow up. will need [facility] placement as per Pt/OT, await social work for placement Qualifiers: Back pain location: low back pain Back pain laterality: unspecified Sciatica presence: without sciatica Qualified Code(s): M54.5 - Low back pain (5) CKD (chronic kidney disease) stage 3, GFR 30-59 ml/min Current Visit: Yes Status: Acute - Subjective Interval history: no complaint patient is micturating by himself without any dif and no blood has been noted - Constitutional Vitals: Temp Pulse Resp BP Pulse Ox 97.4 F L 67 16 128/78 97 04/27/17 11:13 04/27/17 11:13 04/27/17 11:13 04/27/17 11:13 04/27/17 11:13 General appearance: Present: cooperative, A&O X 3, no acute distress, answers questions appropriately Internal Medicine: Result - Labs CBC & Chem 7: 04/23/17 00:06 04/25/17 09:55 - ABG Interpretation ABG results: PT/INR, D-dimer PT 11.9 Seconds (9.4-12.1) 04/23/17 00:06 - VTE Documentation of Mechanical Device: Graduated compression elastic hosiery Consult Discharge Plan - Plan Referrals: Danny Walker MD [Primary Care Provider] -
[2017-04-27] MEDS: *HR* HYDROcodone/Acet 5/325 mg TABLET PO PRN (19:56)
[2017-04-28 05:57] LABS: Alanine Aminotransferase 39 Units/L (0-55); Albumin 2.6 g/dL (3.5-5.0); Albumin/Globulin Ratio 0.6 (1.1-2.2); Alkaline Phosphatase 185 Units/L (38-126); Aspartate Amino Transferase 33 Units/L (5-34); BUN/Creatinine Ratio 20 (6-26); Bilirubin,Total 0.5 mg/dL (0.2-1.2); Blood Urea Nitrogen 21 mg/dL (8-26); Calcium 9.1 mg/dL (8.6-10.8); Carbon Dioxide 29 mEq/L (19-29); Chloride 102 mEq/L (98-109); Globulin 4.5 g/dL (2.4-3.5); Glucose 165 mg/dL (70-99); Osmolality,Calculated 291 (280-300); Potassium 4.4 mEq/L (3.5-4.5); Sodium 137 mEq/L (136-145); Total Protein 7.1 g/dL (6.0-8.3); eGFR For African Americans > 60 (> 60); eGFR For Non-African Americans > 60 (> 60)
[2017-04-28] MEDS: Aspirin 81 MG TAB.CHEW PO SCH (08:04)
[2017-04-28] MEDS: Insulin LISPRO 300 UNITS/3 ML VIAL SQ SCH ×2 (08:04→12:08)
[2017-04-28] MEDS: Lactobacillus 1 EACH CAP.SPRINK PO SCH (08:04)
[2017-04-28 10:54] VITALS: BP 114/71
--- NOTE | 2017-04-28 13:40 | Physician Discharge Referral ---
ExtendedCare Referral Info Transfer To: snf Provider in Charge: yocasta Provider in Charge after Transfer: PCP Institutional Level of Care: Skilled - Diagnosis (1) UTI (urinary tract infection) Status: Acute (2) Diabetes Status: Chronic (3) Hydronephrosis concurrent with and due to ureteral stricture Status: Acute (4) Acute back pain Status: Chronic (5) CKD (chronic kidney disease) stage 3, GFR 30-59 ml/min Status: Acute - Transfer Medications Home Medications: Atenolol [Tenormin] 75 mg PO DAILY 12/28/16 [History] Cinnamon Bark [Cinnamon] 500 mg PO BID 12/28/16 [History] Donepezil [Aricept] 10 mg PO HS 12/28/16 [History] Memantine HCl 10 mg PO DAILY 12/28/16 [History] Pantoprazole Sodium [Protonix] 40 mg PO DAILY 12/28/16 [History] Sertraline [Zoloft] 50 mg PO DAILY 12/28/16 [History] Aspirin 81 mg PO DAILY 04/22/17 [History] Cranberry 500 mg PO DAILY 04/22/17 [History] Lactobacillus Acidophilus [Acidophilus Probiotic] 1 mg PO DAILY 04/22/17 [ History] Acetaminophen [Tylenol] 650 mg PO Q6HR PRN #0 tablet 04/26/17 [Rx] Allergies/Adverse Reactions: Allergies No Known Allergies Allergy (Verified 04/22/17 14:34) - Respiratory Orders Smoking Cessation: Smoking cessation has been advised. For more information, call the [place] Tobacco Quit Line at 9-525-HXRU-NOW. CERTIFICATION: I certify that the transfer of the above named patient to an Extended Care Facility is necessary for the continuing treatment of the diagnosis listed. The above information is true and accurate reflection of patient's current condition. Confidential - Redisclosure prohibited without a patient's written consent.
--- NOTE | 2017-04-28 19:03 | Internal Med Progress Note ---
Date of Encounter: 04/28/17 Time of Encounter: 19:01 - Assessment and plan (1) UTI (urinary tract infection) Status: Acute Assessment and plan: stop IV ceftraxone . urine cx shows no growth. Qualifiers: Urinary tract infection type: site unspecified Hematuria presence: with hematuria Qualified Code(s): N39.0 - Urinary tract infection, site not specified; R31.9 - Hematuria, unspecified (2) Diabetes Status: Chronic Assessment and plan: will continue humalog sliding scale. monitor finger sticks. Qualifiers: Diabetes mellitus type: other specified (including RAHUL) Diabetes mellitus complication status: with unspecified complications Diabetes mellitus half-way insulin use: without long term care administrator use Qualified Code(s): E13.8 - Other specified diabetes mellitus with unspecified complications (3) Hydronephrosis concurrent with and due to ureteral stricture Status: Acute (4) Acute back pain Status: Chronic Qualifiers: Back pain location: low back pain Back pain laterality: unspecified Sciatica presence: without sciatica Qualified Code(s): M54.5 - Low back pain (5) CKD (chronic kidney disease) stage 3, GFR 30-59 ml/min Status: Acute - Subjective Interval history: S addendum to discharge summary This note to be considered as an addendum to discharge summary which was dictated yesterday. Patient was planned to be discharged yesterday however for logistics reason he was kept another night. Patient will be discharged today. No significant change in any condition or treatment plan. Patient is asymptomatic examination is no change. - Constitutional Vitals: Temp Pulse Resp BP Pulse Ox 97.6 F 61 16 114/71 95 04/28/17 10:49 04/28/17 10:49 04/28/17 10:49 04/28/17 10:49 04/28/17 10:49 General appearance: Present: cooperative, A&O X 3, no acute distress, answers questions appropriately - Head Head exam: Present: atraumatic, normocephalic - Eye Eye exam: Present: PERRL, conjuntiva pink, sclera anicteric Pupils: Present: PERRL - Neck Neck exam general surgery: Present: supple, trachea midline. Absent: lymphadenopathy - Respiratory Respiratory exam: Present: CTAB. Absent: accessory muscle use, rales, rhonchi, wheezes - Cardiovascular Cardiovascular exam: Present: RRR, +S1, +S2. Absent: diastolic murmur, gallop, rubs, systolic murmur - GI/Abdominal GI/Abdominal exam: Present: normal bowel sounds, soft, no peritoneal signs. Absent: distended, tenderness - Extremities Exam Extremities exam: Present: warm, radial pulses palpable and symetrical. Absent : calf tenderness, cyanotic, pedal edema - Neurological Exam Neurological exam: Present: CN II-XII intact, oriented X3, no focal deficits. Absent: pronater drift, facial droop, speech deficit - Skin Skin exam: Present: dry, intact Internal Medicine: Result - Labs CBC & Chem 7: 04/23/17 00:06 04/28/17 04:13 Labs: BMP 04/28/17 04:13 Sodium 137 Potassium 4.4 Chloride 102 Carbon Dioxide 29 BUN 21 Creatinine 1.06 Glucose 165 H Calcium 9.1 Liver Function 04/28/17 Range/Units 04:13 Total Bilirubin 0.5 (0.2-1.2) mg/dL AST 33 (5-34) Units/L ALT 39 (0-55) Units/L Alkaline Phosphatase 185 H (38-126) Units/L Albumin 2.6 L (3.5-5.0) g/dL - ABG Interpretation ABG results: PT/INR, D-dimer PT 11.9 Seconds (9.4-12.1) 04/23/17 00:06 - VTE Documentation of Mechanical Device: Graduated compression elastic hosiery Consult Discharge Plan - Plan Referrals: Connor Alcala DO [Partnered Physician] - 05/12/17 2:00 pm (MAY 12, 2017 AT 2:00PM) Sam Wright MD [Partnered Physician] - (WEB REQUEST MADE) Danny Walker MD [Primary Care Provider] - 05/05/17 10:00 am
== END 2017-04-28 14:31 | disposition home or self-care (01) | DRG 552 ==
LOC: 3NENU 10:24 → EMEROO 10:24 → 3NENU 16:11
PROVIDERS: ADMIT Internal Medicine Endocrinology, Diabetes & Metabolism; ATTEND Internal Medicine Endocrinology, Diabetes & Metabolism

== ENCOUNTER 2019-03-20 19:53 | Inpatient (IN) ==
--- NOTE | 2019-03-20 20:00 | Emergency Department Note ---
Disposition Clinical Impression: Sepsis, Acute cystitis, Lactic acidosis Disposition: Admitted As Inpatient Condition: Fair General Adult HPI - General Stated complaint: hypoxic Time Seen by Provider: 03/20/19 19:57 - Related Data Home Medications Medication Instructions Recorded Confirmed Atenolol [Tenormin] 75 mg PO HS 12/28/16 03/20/19 Cinnamon Bark [Cinnamon] 500 mg PO HS 12/28/16 03/20/19 Donepezil [Aricept] 10 mg PO HS 12/28/16 03/20/19 Memantine HCl 10 mg PO HS 12/28/16 03/20/19 Pantoprazole Sodium [Protonix] 40 mg PO HS 12/28/16 03/20/19 Sertraline [Zoloft] 50 mg PO HS 12/28/16 03/20/19 Aspirin 81 mg PO HS 04/22/17 03/20/19 Nitrofurantoin [Macrodantin] 50 mg PO HS 03/20/19 03/20/19 Allergies Allergy/AdvReac Type Severity Reaction Status Date / Time No Known Allergies Allergy Verified 04/22/17 14:34 Past Medical History - Past Medical History Medical history: Reports: dementia, diabetes Surgical history: Reports: appendectomy Psychiatric history: Reports: no psych history - Social History Smoking Status: Former smoker Smokeless Tobacco Status: No Alcohol use: Reports: none Drug use: Reports: none Course Vital Signs Temperature 95.6 F L 03/20/19 19:55 Pulse Rate 93 03/20/19 19:55 Respiratory Rate 24 03/20/19 19:55 Blood Pressure 101/81 03/20/19 19:55 O2 Sat by Pulse Oximetry 97 03/20/19 19:55 Temperature 97.4 F L 03/20/19 20:27 Pulse Rate 72 03/20/19 23:00 Respiratory Rate 16 03/21/19 00:05 Blood Pressure 127/65 03/21/19 00:05 O2 Sat by Pulse Oximetry 100 03/20/19 23:00 Oxygen Delivery Oxygen Delivery Nasal Cannula Medical Decision Making - Lab Data Result diagrams: 03/20/19 20:21 03/20/19 20:21 Lab Results 03/20/19 03/20/19 03/20/19 Range/Units 20:21 20:21 20:21 WBC 10.1 (4.3-11.1) K/mcL RBC 4.66 (4.19-5.50) M/mcL Hgb 14.3 (12.9-16.9) g/dL Hct 46.4 (37.5-50.1) % MCV 99.6 (83.0-100.0) fL MCH 30.7 (28.0-33.3) pg MCHC 30.8 L (31.6-35.5) g/dL RDW 14.2 (11.5-14.5) % Plt Count 175 (140-400) K/mcL MPV 11.3 (9.4-12.4) fL Immature Gran % 1.3 (0-4) % Seg Neutrophils % 70.8 % Lymphocytes % 19.4 % Monocytes % 7.3 % Eosinophils % 0.9 % Basophils % 0.3 % Neutrophils # 7.1 (1.6-8.9) K/mcL Lymphocytes # 2.0 (0.6-4.6) K/mcL Monocytes # 0.7 (0.0-1.3) K/mcL Eosinophils # 0.1 (0.0-0.6) K/mcL Basophils # 0.0 (0.0-0.2) K/mcL VBG pH (7.32-7.42) pH Units VBG pCO2 (41-51) mmHg VBG pO2 (25-50) mmHg VBG HCO3 (21-27) mEq/L Sodium 142 (136-145) mEq/L Potassium 4.7 (3.5-5.1) mEq/L Chloride 106 (98-107) mEq/L Carbon Dioxide 23 (23-29) mEq/L BUN 16 (8-23) mg/dL Creatinine 1.41 H (0.70-1.30) mg/dL Est GFR ( Amer) 58 L (> 60) Est GFR (Non-Af Amer) 48 L (> 60) BUN/Creatinine Ratio 11 (6-26) Glucose 321 H (70-105) mg/dL Calculated Osmolality 308 H (280-300) Lactic Acid (0.5-2.2) mmol/L Calcium 8.9 (8.6-10.3) mg/dL Total Bilirubin 0.4 (0.3-1.0) mg/dL Direct Bilirubin 0.1 (0.0-0.2) mg/dL Indirect Bilirubin 0.3 (0.0-1.2) mg/dL AST 31 (13-39) Units/L ALT 27 (7-52) Units/L Alkaline Phosphatase 101 (34-104) Units/L Ammonia 50 (16-53) mcmol/L Troponin I 0.07 H* (< 0.04) ng/mL Serum Total Protein 7.0 (6.4-8.9) g/dL Albumin 3.5 (3.5-5.7) g/dL Globulin 3.5 (2.4-3.5) g/dL Albumin/Globulin Ratio 1.0 L (1.1-2.2) Beta-Hydroxybutyric Acd (0.02-0.27) mmol/L TSH 8.805 H (0.340-5.600) mcIU/mL Urine Color (Yellow) Urine Clarity (Clear) Urine pH (5.0-8.0) pH Units Ur Specific Otho (1.010-1.025) Urine Protein (Neg-Trace) mg/dL Urine Glucose (UA) (Normal) mg/dL Urine Ketones (Negative) mg/dL Urine Blood (Negative) Urine Nitrite (Negative) Urine Bilirubin (Negative) Urine Urobilinogen (Normal) mg/dL Ur Leukocyte Esterase (Negative) Urine Microscopic RBC (0-3) per hpf Urine Microscopic WBC (0-3) per hpf Ur Squamous Epith Cells (None-Few) per lpf Amorphous Sediment (Few) Urine Bacteria (None-Few) per hpf Ur Culture Indicated? (NO) Ethyl Alcohol < 10 (Less than 10) mg/dL Person Notif of Crit 03/20/19 03/20/19 03/20/19 Range/Units 20:21 20:21 20:29 WBC (4.3-11.1) K/mcL RBC (4.19-5.50) M/mcL Hgb (12.9-16.9) g/dL Hct (37.5-50.1) % MCV (83.0-100.0) fL MCH (28.0-33.3) pg MCHC (31.6-35.5) g/dL RDW (11.5-14.5) % Plt Count (140-400) K/mcL MPV (9.4-12.4) fL Immature Gran % (0-4) % Seg Neutrophils % % Lymphocytes % % Monocytes % % Eosinophils % % Basophils % % Neutrophils # (1.6-8.9) K/mcL Lymphocytes # (0.6-4.6) K/mcL Monocytes # (0.0-1.3) K/mcL Eosinophils # (0.0-0.6) K/mcL Basophils # (0.0-0.2) K/mcL VBG pH (7.32-7.42) pH Units VBG pCO2 (41-51) mmHg VBG pO2 (25-50) mmHg VBG HCO3 (21-27) mEq/L Sodium (136-145) mEq/L Potassium (3.5-5.1) mEq/L Chloride (98-107) mEq/L Carbon Dioxide (23-29) mEq/L BUN (8-23) mg/dL Creatinine (0.70-1.30) mg/dL Est GFR ( Amer) (> 60) Est GFR (Non-Af Amer) (> 60) BUN/Creatinine Ratio (6-26) Glucose (70-105) mg/dL Calculated Osmolality (280-300) Lactic Acid 6.1 H* (0.5-2.2) mmol/L Calcium (8.6-10.3) mg/dL Total Bilirubin (0.3-1.0) mg/dL Direct Bilirubin (0.0-0.2) mg/dL Indirect Bilirubin (0.0-1.2) mg/dL AST (13-39) Units/L ALT (7-52) Units/L Alkaline Phosphatase (34-104) Units/L Ammonia (16-53) mcmol/L Troponin I (< 0.04) ng/mL Serum Total Protein (6.4-8.9) g/dL Albumin (3.5-5.7) g/dL Globulin (2.4-3.5) g/dL Albumin/Globulin Ratio (1.1-2.2) Beta-Hydroxybutyric Acd 0.30 H (0.02-0.27) mmol/L TSH (0.340-5.600) mcIU/mL Urine Color Yellow (Yellow) Urine Clarity Turbid A (Clear) Urine pH 5.5 (5.0-8.0) pH Units Ur Specific Otho 1.016 (1.010-1.025) Urine Protein 30 H (Neg-Trace) mg/dL Urine Glucose (UA) 100 H (Normal) mg/dL Urine Ketones Negative (Negative) mg/dL Urine Blood Large H (Negative) Urine Nitrite Negative (Negative) Urine Bilirubin Negative (Negative) Urine Urobilinogen Normal (Normal) mg/dL Ur Leukocyte Esterase Large H (Negative) Urine Microscopic RBC TNTC H (0-3) per hpf Urine Microscopic WBC TNTC H (0-3) per hpf Ur Squamous Epith Cells Many H (None-Few) per lpf Amorphous Sediment Few (Few) Urine Bacteria Many H (None-Few) per hpf Ur Culture Indicated? YES A (NO) Ethyl Alcohol (Less than 10) mg/dL Person Notif of Crit 03/20/19 03/20/19 03/20/19 Range/Units 20:36 23:11 23:33 WBC (4.3-11.1) K/mcL RBC (4.19-5.50) M/mcL Hgb (12.9-16.9) g/dL Hct (37.5-50.1) % MCV (83.0-100.0) fL MCH (28.0-33.3) pg MCHC (31.6-35.5) g/dL RDW (11.5-14.5) % Plt Count (140-400) K/mcL MPV (9.4-12.4) fL Immature Gran % (0-4) % Seg Neutrophils % % Lymphocytes % % Monocytes % % Eosinophils % % Basophils % % Neutrophils # (1.6-8.9) K/mcL Lymphocytes # (0.6-4.6) K/mcL Monocytes # (0.0-1.3) K/mcL Eosinophils # (0.0-0.6) K/mcL Basophils # (0.0-0.2) K/mcL VBG pH 7.17 L* (7.32-7.42) pH Units VBG pCO2 68 H (41-51) mmHg VBG pO2 25 (25-50) mmHg VBG HCO3 25 (21-27) mEq/L Sodium (136-145) mEq/L Potassium (3.5-5.1) mEq/L Chloride (98-107) mEq/L Carbon Dioxide (23-29) mEq/L BUN (8-23) mg/dL Creatinine (0.70-1.30) mg/dL Est GFR ( Amer) (> 60) Est GFR (Non-Af Amer) (> 60) BUN/Creatinine Ratio (6-26) Glucose (70-105) mg/dL Calculated Osmolality (280-300) Lactic Acid 2.3 H (0.5-2.2) mmol/L Calcium (8.6-10.3) mg/dL Total Bilirubin (0.3-1.0) mg/dL Direct Bilirubin (0.0-0.2) mg/dL Indirect Bilirubin (0.0-1.2) mg/dL AST (13-39) Units/L ALT (7-52) Units/L Alkaline Phosphatase (34-104) Units/L Ammonia (16-53) mcmol/L Troponin I 0.10 H* (< 0.04) ng/mL Serum Total Protein (6.4-8.9) g/dL Albumin (3.5-5.7) g/dL Globulin (2.4-3.5) g/dL Albumin/Globulin Ratio (1.1-2.2) Beta-Hydroxybutyric Acd (0.02-0.27) mmol/L TSH (0.340-5.600) mcIU/mL Urine Color (Yellow) Urine Clarity (Clear) Urine pH (5.0-8.0) pH Units Ur Specific Otho (1.010-1.025) Urine Protein (Neg-Trace) mg/dL Urine Glucose (UA) (Normal) mg/dL Urine Ketones (Negative) mg/dL Urine Blood (Negative) Urine Nitrite (Negative) Urine Bilirubin (Negative) Urine Urobilinogen (Normal) mg/dL Ur Leukocyte Esterase (Negative) Urine Microscopic RBC (0-3) per hpf Urine Microscopic WBC (0-3) per hpf Ur Squamous Epith Cells (None-Few) per lpf Amorphous Sediment (Few) Urine Bacteria (None-Few) per hpf Ur Culture Indicated? (NO) Ethyl Alcohol (Less than 10) mg/dL Person Notif of Lucila Acevedo Critical Care Time Critical Care Time: Yes Total Critical Care Time: 30 Attestation: The high probability of a clinically significant, sudden or life threatening deterioration of the [] system(s) required my full and direct attention, intervention and personal management. The aggregate critical care time was [] minutes. This time is in addition to time spent performing reported procedures but includes the following: [] Data Review and interpretation [] Patient assessment and monitoring of vital signs [] Documentation [] Medication orders and management Attestation Statement - Attestation Attestation: I reviewed the residents documentation and agree with the residents assessment and plan of care. I have personally had face to face time with the patient. (Brief History, Brief Exam, and MDM) I personally supervised and was present for the toscano/critical portions of the following procedures completed by the resident: (add procedures performed here). [id number] time provided I attest to supervising the resident physician's interpretation the ECG Patient presents with reports of altered mental status. The patient was found at home not wearing pain and soiled and feces. He arrives by EMS. He is alert andhis name. No lateralizing neurologic deficits. He was hyperglycemic prehospital. Broad-based workup for mental status initiated. 22:53: The patient initially presented with a respiratory rate of 24 and a temp of 95+. He has criteria for a UTI. This meets sepsis criteria (severe sepsis due to elevated lactic acid). He is not hypotensive.
[2019-03-20] MEDS ORDERED: 0.9 % Sodium Chloride 1,000 ML ONE (20:04)
[2019-03-20] MEDS ORDERED: 0.9 % Sodium Chloride 1,000 ML IVC ONE ×3 (20:05→22:51)
--- NOTE | 2019-03-20 20:25 | Emergency Department Note ---
Disposition Clinical Impression: Lactic acidosis Sepsis Qualifiers: Sepsis type: sepsis due to unspecified organism Qualified Code(s): A41.9 - Sepsis, unspecified organism Acute cystitis Qualifiers: Hematuria presence: with hematuria Qualified Code(s): N30.01 - Acute cystitis with hematuria Disposition: Admitted As Inpatient Condition: Fair Referrals: Danny Walker MD [Primary Care Provider] - Forms: ED Satisfaction Letter Time of Disposition: 23:02 General Adult HPI - General Chief complaint: ED Altered Mental Status Stated complaint: hypoxic Time Seen by Provider: 03/20/19 19:57 Source: patient, EMS Mode of arrival: EMS Limitations: altered mental status Nursing Notes Reviewed: Yes Vital Signs Reviewed: Yes - History of Present Illness HPI Narrative: 84-year-old male presented to the emergency department via EMS after said they found him slumped over outside the yard not wearing pants he had soiled himself. They said he was acting normal and distal he has not been doing well over the last day or so. He is become more confused. He has normal weakness as he does have history of Alzheimer's. He has been taking his medications. Also has diabetes but does not take any medications for it. Does have a cyst on his kidney as well as kidney stones was sent to urology they started him on antibiotics is been on those for 4 years did chose not to do surgery. Patient is alert and oriented is not complaining of any pain or any other symptoms at this time just feels very weak and tired. Otherwise patient has no other complaints. Patient with at this time she says that now he is back to baseline maybe has mildly more tremors in his legs than normal. This is chronic having the tremors but normally just in the hands not involving the legs. Pain Scale: 0 - Related Data Home Medications Medication Instructions Recorded Confirmed Atenolol [Tenormin] 75 mg PO HS 12/28/16 03/20/19 Cinnamon Bark [Cinnamon] 500 mg PO HS 12/28/16 03/20/19 Donepezil [Aricept] 10 mg PO HS 12/28/16 03/20/19 Memantine HCl 10 mg PO HS 12/28/16 03/20/19 Pantoprazole Sodium [Protonix] 40 mg PO HS 12/28/16 03/20/19 Sertraline [Zoloft] 50 mg PO HS 12/28/16 03/20/19 Aspirin 81 mg PO HS 04/22/17 03/20/19 Nitrofurantoin [Macrodantin] 50 mg PO HS 03/20/19 03/20/19 Allergies Allergy/AdvReac Type Severity Reaction Status Date / Time No Known Allergies Allergy Verified 04/22/17 14:34 All systems ED: reviewed and negative except as stated. Review of Systems: As Per HPI Past Medical History - Past Medical History Attestation: Yes The following information was validated with the patient. Source: patient Medical history: Reports: dementia, diabetes, hyperlipidemia, hypertension, other Surgical history: Reports: appendectomy Psychiatric history: Reports: anxiety, depression - Social History Smoking Status: Former smoker Smokeless Tobacco Status: No Alcohol use: Reports: unknown Drug use: Reports: unknown Physical Exam - General Limitations: altered mental status General appearance: other - Head Head exam: atraumatic, normocephalic, normal inspection - Eye Eye exam: Present: normal appearance, PERRL, EOMI - ENT ENT exam: normal exam, normal oropharynx, mucous membranes moist - Neck Neck exam: Present: normal inspection, full ROM, trachea midline - Chest Chest inspection: Present: normal inspection, symmetric chest wall rise - Respiratory Respiratory exam: Present: normal lung sounds bilaterally - Cardiovascular Cardiovascular exam: Present: regular rate, normal rhythm, normal heart sounds - Abdominal Exam Abdominal exam: Present: soft, Non-Tender, normal bowel sounds. Absent: tenderness, distention, guarding, rebound, rigidity - Extremities Exam Extremities exam: Present: normal inspection, full ROM. Absent: tenderness, pedal edema - Expanded Lower Extremity Exam Neurovascular/Tendon exam: Absent: motor deficit, sensory deficit, tendon deficit - Back Exam Back exam: Present: normal inspection, full ROM. Absent: tenderness - Neurological Exam Neurological exam: Present: alert, oriented X3 - Expanded Neurological Exam Patient oriented to: Present: person, place. Absent: time Cranial nerves: EOM function (II, III, IV, ): Normal, facial sensation (V): Normal, facial palsy (VII): Normal, spinal accessory function (XI): Normal, tongue deviation (XII): Normal Motor strength - LUE: 4/5 Motor strength - RUE: 4/5 Motor strength - LLE: 4/5 Motor strength - RLE: 4/5 Upper motor neuron exam: bart neglect: Absent bilaterally, pronator drift: Absent bilaterally Sensory exam upper extremity: light touch: Normal Sensory exam lower extremity: light touch: Normal Coma Scale Eye Opening: Spontaneous Coma Scale Motor Response: Obeys Commands Coma Scale Verbal Response: Confused Coma Scale Total: 14 - Skin Skin exam: Present: warm, dry, intact, normal color Course Course Narrative: Will do broad workup looking for any sources of change patient's worsening mental status. This could all be due to the worsening Alzheimer's he has not been taking his medications. We will do head CT and chest x-ray patient was cold when he arrived here we will give warm IV fluids as well as placed patient on a warmer and was warmed blankets on him. Patient most likely will be admitted for further evaluation. Patient stable at this time Vital Signs Temperature 95.6 F L 03/20/19 19:55 Pulse Rate 93 03/20/19 19:55 Respiratory Rate 24 03/20/19 19:55 Blood Pressure 101/81 03/20/19 19:55 O2 Sat by Pulse Oximetry 97 03/20/19 19:55 Temperature 97.4 F L 03/20/19 20:27 Pulse Rate 70 03/20/19 22:00 Respiratory Rate 22 03/20/19 21:18 Blood Pressure 126/58 03/20/19 22:00 O2 Sat by Pulse Oximetry 100 03/20/19 22:00 Oxygen Delivery Oxygen Delivery Nasal Cannula Medical Decision Making - [facility] Narrative Medical decision making narrative: 84-year-old male presented to the emergency department with possible altered mental status. When he arrived here he was alert and oriented to person place not to time. arrived so this is his normal alertness said he is much better than when he first arrived. We did not notice any neurological deficits he was able to follow commands NIH was 0. Patient was mildly hypothermic he did have an elevated lactate so does meet sepsis criteria does meet severe sepsis but is not in septic shock he was never hypotensive. Patient did receive his 30 mL/kg of IV fluids. I did get blood cultures are still pending urinalysis is most likely her source is a does of infection did give Rocephin. Culture is pending for that as well. Patient did have an elevated lactate he did get IV fluids to help altered that make it better. Patient also had decreased pH is expected with a lactic acidosis. Mild elevation in creatinine is) his normal. EKG had no acute findings. CT head as well as chest x-ray were showing no acute findings. I did speak with the hospitalist who agreed to admit the patient wanted via CT abdomen due to patient's history of having a stone and renal mass that he has been on the Macrobid for [address] was done and showed no acute changes based on previous CT scans. Patient is admitted in stable condition. Spoke with Dr. Andrews who agreed to accept the patient. Patient admitted in stable condition Chest X-Ray 03/20/19 19:57 IMPRESSION: Clear lungs. No acute abnormality. No significant change from the prior study. D/ / Shaggy Mast MD / Shaggy Mast MD Interpreting Provider: Shaggy Mast MD Head CT 03/20/19 19:58 IMPRESSION: Multifocal small-vessel ischemic change bilaterally with multiple prior lacunar infarcts Age-indeterminate infarcts are noted in the right thalamus. No hemorrhage. If neurologic symptoms continue, consider MRI D/ / Pasha Benavides / Pasha Benavides Interpreting Provider: Pasha Benavides Abdomen/Pelvis CT 03/20/19 22:00 IMPRESSION: 1. Multiple clusters of bilateral renal calculi more pronounced on the right where there is also chronic hydronephrosis any UPJ obstruction is unchanged. 2. No ureteric calculi. 3. New 7 mm bladder calculus. 4. Stable appearance of circumferential bladder wall thickening, numerous bladder diverticula likely secondary to chronic bladder outlet obstruction from prostatomegaly. 5. 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 D/ / Gomez Mishra MD / Gomez Mishra MD Interpreting Provider: Gomez Mishra MD - Medical Records Medical records reviewed: Yes I reviewed the patient's medical records. - Lab Data Lab results reviewed: Yes I reviewed the patient's lab results. Result diagrams: 03/20/19 20:21 05/07/19 20:21 Lab Results 03/20/19 03/20/19 03/20/19 Range/Units 20:21 20:21 20:21 WBC 10.1 (4.3-11.1) K/mcL RBC 4.66 (4.19-5.50) M/mcL Hgb 14.3 (12.9-16.9) g/dL Hct 46.4 (37.5-50.1) % MCV 99.6 (83.0-100.0) fL MCH 30.7 (28.0-33.3) pg MCHC 30.8 L (31.6-35.5) g/dL RDW 14.2 (11.5-14.5) % Plt Count 175 (140-400) K/mcL MPV 11.3 (9.4-12.4) fL Immature Gran % 1.3 (0-4) % Seg Neutrophils % 70.8 % Lymphocytes % 19.4 % Monocytes % 7.3 % Eosinophils % 0.9 % Basophils % 0.3 % Neutrophils # 7.1 (1.6-8.9) K/mcL Lymphocytes # 2.0 (0.6-4.6) K/mcL Monocytes # 0.7 (0.0-1.3) K/mcL Eosinophils # 0.1 (0.0-0.6) K/mcL Basophils # 0.0 (0.0-0.2) K/mcL VBG pH (7.32-7.42) pH Units VBG pCO2 (41-51) mmHg VBG pO2 (25-50) mmHg VBG HCO3 (21-27) mEq/L Sodium 142 (136-145) mEq/L Potassium 4.7 (3.5-5.1) mEq/L Chloride 106 (98-107) mEq/L Carbon Dioxide 23 (23-29) mEq/L BUN 16 (8-23) mg/dL Creatinine 1.41 H (0.70-1.30) mg/dL Est GFR ( Amer) 58 L (> 60) Est GFR (Non-Af Amer) 48 L (> 60) BUN/Creatinine Ratio 11 (6-26) Glucose 321 H (70-105) mg/dL Calculated Osmolality 308 H (280-300) Lactic Acid (0.5-2.2) mmol/L Calcium 8.9 (8.6-10.3) mg/dL Total Bilirubin 0.4 (0.3-1.0) mg/dL Direct Bilirubin 0.1 (0.0-0.2) mg/dL Indirect Bilirubin 0.3 (0.0-1.2) mg/dL AST 31 (13-39) Units/L ALT 27 (7-52) Units/L Alkaline Phosphatase 101 (34-104) Units/L Ammonia 50 (16-53) mcmol/L Troponin I 0.07 H* (< 0.04) ng/mL Serum Total Protein 7.0 (6.4-8.9) g/dL Albumin 3.5 (3.5-5.7) g/dL Globulin 3.5 (2.4-3.5) g/dL Albumin/Globulin Ratio 1.0 L (1.1-2.2) Beta-Hydroxybutyric Acd (0.02-0.27) mmol/L TSH 8.805 H (0.340-5.600) mcIU/mL Urine Color (Yellow) Urine Clarity (Clear) Urine pH (5.0-8.0) pH Units Ur Specific [place] (1.010-1.025) Urine Protein (Neg-Trace) mg/dL Urine Glucose (UA) (Normal) mg/dL Urine Ketones (Negative) mg/dL Urine Blood (Negative) Urine Nitrite (Negative) Urine Bilirubin (Negative) Urine Urobilinogen (Normal) mg/dL Ur Leukocyte Esterase (Negative) Urine Microscopic RBC (0-3) per hpf Urine Microscopic WBC (0-3) per hpf Ur Squamous Epith Cells (None-Few) per lpf Amorphous Sediment (Few) Urine Bacteria (None-Few) per hpf Ur Culture Indicated? (NO) Ethyl Alcohol < 10 (Less than 10) mg/dL Person Notif of Crit 03/20/19 03/20/19 03/20/19 Range/Units 20:21 20:21 20:29 WBC (4.3-11.1) K/mcL RBC (4.19-5.50) M/mcL Hgb (12.9-16.9) g/dL Hct (37.5-50.1) % MCV (83.0-100.0) fL MCH (28.0-33.3) pg MCHC (31.6-35.5) g/dL RDW (11.5-14.5) % Plt Count (140-400) K/mcL MPV (9.4-12.4) fL Immature Gran % (0-4) % Seg Neutrophils % % Lymphocytes % % Monocytes % % Eosinophils % % Basophils % % Neutrophils # (1.6-8.9) K/mcL Lymphocytes # (0.6-4.6) K/mcL Monocytes # (0.0-1.3) K/mcL Eosinophils # (0.0-0.6) K/mcL Basophils # (0.0-0.2) K/mcL VBG pH (7.32-7.42) pH Units VBG pCO2 (41-51) mmHg VBG pO2 (25-50) mmHg VBG HCO3 (21-27) mEq/L Sodium (136-145) mEq/L Potassium (3.5-5.1) mEq/L Chloride (98-107) mEq/L Carbon Dioxide (23-29) mEq/L BUN (8-23) mg/dL Creatinine (0.70-1.30) mg/dL Est GFR ( Amer) (> 60) Est GFR (Non-Af Amer) (> 60) BUN/Creatinine Ratio (6-26) Glucose (70-105) mg/dL Calculated Osmolality (280-300) Lactic Acid 6.1 H* (0.5-2.2) mmol/L Calcium (8.6-10.3) mg/dL Total Bilirubin (0.3-1.0) mg/dL Direct Bilirubin (0.0-0.2) mg/dL Indirect Bilirubin (0.0-1.2) mg/dL AST (13-39) Units/L ALT (7-52) Units/L Alkaline Phosphatase (34-104) Units/L Ammonia (16-53) mcmol/L Troponin I (< 0.04) ng/mL Serum Total Protein (6.4-8.9) g/dL Albumin (3.5-5.7) g/dL Globulin (2.4-3.5) g/dL Albumin/Globulin Ratio (1.1-2.2) Beta-Hydroxybutyric Acd 0.30 H (0.02-0.27) mmol/L TSH (0.340-5.600) mcIU/mL Urine Color Yellow (Yellow) Urine Clarity Turbid A (Clear) Urine pH 5.5 (5.0-8.0) pH Units Ur Specific [place] 1.016 (1.010-1.025) Urine Protein 30 H (Neg-Trace) mg/dL Urine Glucose (UA) 100 H (Normal) mg/dL Urine Ketones Negative (Negative) mg/dL Urine Blood Large H (Negative) Urine Nitrite Negative (Negative) Urine Bilirubin Negative (Negative) Urine Urobilinogen Normal (Normal) mg/dL Ur Leukocyte Esterase Large H (Negative) Urine Microscopic RBC TNTC H (0-3) per hpf Urine Microscopic WBC TNTC H (0-3) per hpf Ur Squamous Epith Cells Many H (None-Few) per lpf Amorphous Sediment Few (Few) Urine Bacteria Many H (None-Few) per hpf Ur Culture Indicated? YES A (NO) Ethyl Alcohol (Less than 10) mg/dL Person Notif of Crit 03/20/19 Range/Units 20:36 WBC (4.3-11.1) K/mcL RBC (4.19-5.50) M/mcL Hgb (12.9-16.9) g/dL Hct (37.5-50.1) % MCV (83.0-100.0) fL MCH (28.0-33.3) pg MCHC (31.6-35.5) g/dL RDW (11.5-14.5) % Plt Count (140-400) K/mcL MPV (9.4-12.4) fL Immature Gran % (0-4) % Seg Neutrophils % % Lymphocytes % % Monocytes % % Eosinophils % % Basophils % % Neutrophils # (1.6-8.9) K/mcL Lymphocytes # (0.6-4.6) K/mcL Monocytes # (0.0-1.3) K/mcL Eosinophils # (0.0-0.6) K/mcL Basophils # (0.0-0.2) K/mcL VBG pH 7.17 L* (7.32-7.42) pH Units VBG pCO2 68 H (41-51) mmHg VBG pO2 25 (25-50) mmHg VBG HCO3 25 (21-27) mEq/L Sodium (136-145) mEq/L Potassium (3.5-5.1) mEq/L Chloride (98-107) mEq/L Carbon Dioxide (23-29) mEq/L BUN (8-23) mg/dL Creatinine (0.70-1.30) mg/dL Est GFR ( Amer) (> 60) Est GFR (Non-Af Amer) (> 60) BUN/Creatinine Ratio (6-26) Glucose (70-105) mg/dL Calculated Osmolality (280-300) Lactic Acid (0.5-2.2) mmol/L Calcium (8.6-10.3) mg/dL Total Bilirubin (0.3-1.0) mg/dL Direct Bilirubin (0.0-0.2) mg/dL Indirect Bilirubin (0.0-1.2) mg/dL AST (13-39) Units/L ALT (7-52) Units/L Alkaline Phosphatase (34-104) Units/L Ammonia (16-53) mcmol/L Troponin I (< 0.04) ng/mL Serum Total Protein (6.4-8.9) g/dL Albumin (3.5-5.7) g/dL Globulin (2.4-3.5) g/dL Albumin/Globulin Ratio (1.1-2.2) Beta-Hydroxybutyric Acd (0.02-0.27) mmol/L TSH (0.340-5.600) mcIU/mL Urine Color (Yellow) Urine Clarity (Clear) Urine pH (5.0-8.0) pH Units Ur Specific [place] (1.010-1.025) Urine Protein (Neg-Trace) mg/dL Urine Glucose (UA) (Normal) mg/dL Urine Ketones (Negative) mg/dL Urine Blood (Negative) Urine Nitrite (Negative) Urine Bilirubin (Negative) Urine Urobilinogen (Normal) mg/dL Ur Leukocyte Esterase (Negative) Urine Microscopic RBC (0-3) per hpf Urine Microscopic WBC (0-3) per hpf Ur Squamous Epith Cells (None-Few) per lpf Amorphous Sediment (Few) Urine Bacteria (None-Few) per hpf Ur Culture Indicated? (NO) Ethyl Alcohol (Less than 10) mg/dL Person Notif of Lucila Acevedo - Radiology Data Radiology results reviewed: Yes I reviewed the patient's radiology results. - EKG Data EKG #1 EKG attestation: Yes I reviewed and interpreted this EKG. EKG results narrative: EKG done at 2010 review myself and the attending shows sinus rhythm at a rate of 84, HI interval 35, QRS 26, QTC 42. There is no acute ST changes no acute T- wave changes no other signs of ischemia. No signs of hypertrophy, heart stent, heart block. No WPW/Brugada/HOCM. EKG is unchanged when compared with old EKG done 07/17/18
[2019-03-20 20:35] LABS: Basophils % 0.3 %; Eosinophils # 0.1 K/mcL (0.0-0.6); Eosinophils % 0.9 %; Hematocrit 46.4 % (37.5-50.1); Hemoglobin 14.3 g/dL (12.9-16.9); Immature Granulocytes % 1.3 % (0-4); Lymphocytes % 19.4 %; Mean Corpuscular HGB Conc 30.8 g/dL (31.6-35.5); Mean Corpuscular Hemoglobin 30.7 pg (28.0-33.3); Mean Corpuscular Volume 99.6 fL (83.0-100.0); Mean Platelet Volume 11.3 fL (9.4-12.4); Monocytes # 0.7 K/mcL (0.0-1.3); Monocytes % 7.3 %; Neutrophils # 7.1 K/mcL (1.6-8.9); Platelet Count 175 K/mcL (140-400); Red Blood Count 4.66 M/mcL (4.19-5.50); Red Cell Distribution Width 14.2 % (11.5-14.5); Segmented Neutrophils % 70.8 %
[2019-03-20 20:41] LABS: VBG HCO3 25 mEq/L (21-27); VBG PCO2 68 mmHg (41-51); VBG PH 7.17 pH Units (7.32-7.42); VBG PO2 25 mmHg (25-50)
[2019-03-20 20:45] LABS: Bilirubin,Urine Negative (Negative); Blood,Urine Large (Negative); Clarity,Urine Turbid (Clear); Color,Urine Yellow (Yellow); Glucose,Urine (UA) 100 mg/dL (Normal); Ketones,Urine Negative (Negative); Leukocyte Esterase,Urine Large (Negative); Nitrite,Urine Negative (Negative); PH,Urine 5.5 pH Units (5.0-8.0); Protein,Urine 30 mg/dL (Neg-Trace); Specific Gravity,Urine 1.016 (1.010-1.025); Urobilinogen,Urine Normal (Normal)
[2019-03-20 20:46] LABS: Bacteria,Urine Many per hpf (None-Few); Squamous Epithelial Cell,Urine Many per lpf (None-Few); WBC,Urine TNTC per hpf (0-3)
[2019-03-20 20:56] LABS: RBC,Urine TNTC per hpf (0-3)
[2019-03-20 20:57] LABS: Amorphous Sediment,Urine Few (Few)
[2019-03-20 20:59] LABS: Alanine Aminotransferase 27 Units/L (7-52); Albumin 3.5 g/dL (3.5-5.7); Alkaline Phosphatase 101 Units/L (34-104); Aspartate Amino Transferase 31 Units/L (13-39); BUN/Creatinine Ratio 11 (6-26); Bilirubin,Direct 0.1 mg/dL (0.0-0.2); Bilirubin,Indirect 0.3 mg/dL (0.0-1.2); Bilirubin,Total 0.4 mg/dL (0.3-1.0); Blood Urea Nitrogen 16 mg/dL (8-23); Calcium 8.9 mg/dL (8.6-10.3); Carbon Dioxide 23 mEq/L (23-29); Chloride 106 mEq/L (98-107); Ethanol < 10 mg/dL (Less than 10); Globulin 3.5 g/dL (2.4-3.5); Glucose 321 mg/dL (70-105); Osmolality,Calculated 308 (280-300); Potassium 4.7 mEq/L (3.5-5.1); Sodium 142 mEq/L (136-145); Troponin I 0.07 ng/mL (< 0.04); eGFR For Non-African Americans 48 (> 60)
[2019-03-20 21:12] LABS: Thyroid Stimulating Hormone 8.805 mcIU/mL (0.340-5.600)
--- NOTE | 2019-03-20 22:51 | Internal Med History&Physical ---
<Jerry Sanderson S - Last Filed: 03/21/19 01:34> Date of Encounter: 03/21/19 Time of Encounter: 23:46 Internal Medicine - H&P: HPI Chief complaint: confused Admitted From: Emergency Dept Plans for Post Hospital Care: Home History of present illness: Mr. Price is a 84 year old male with PMH of dementia, t2dm not on home medications, HTN, and HLD is here from home after daughter said they found him slumped over outside. He was apperently unclothed and had pooped himself. He has also not been acting like himself as of late. He has been getting locked outside and not able to figure out how to get back inside. He has also started to have a decreased appetite. He has had increasing confusion. He also wants to be pushed around in his wheelchair and the daughter says she is beginning to have a difficult time taking care of him. He does have a hx of alzheimers and does take his medications as prescribed. He has also had a chronic UTI x 4 years from reported cysts on his bladder" and has been on chronic low dose macrobid. They opted out of surgical options for this. The patient doesn't c/o anything. He denies chest pain, SOB, n/v/d, abdominal pain, palpitations, tinnitus, blurry vision. In the ER the pt was found to be hypothermic. Labs revealed potential source of sepsis in the urine. CT head negative for hemorrhage, XR chest negative for acute process. EKG negative for ST elevation or ischemia. He was given IV fluid resuscitation and was given a dose of rocephin. He will be moved to the floor and admitted for further workup and evaluation. Past Med Surg Social Fam HX - Past Medical History Medical history: dementia, diabetes, hyperlipidemia, hypertension, other Psychiatric history: anxiety, depression - Past Surgical History Surgical History: appendectomy Additional surgical history: hernia repair - Social History Smoking Status: Former smoker Smokeless Tobacco Status: No Alcohol use: unknown Drug use: unknown - Family History Father Family Member Ethnicity: Non- Living Status: Hx Family Respiratory Disorders: Yes (Emphysema) Mother Family Member Ethnicity: Non- Living Status: Hx Family Cancer: Yes (Lung) Brother Family Member Ethnicity: Non- Living Status: Still Living Hx Family Cardiac Disorders: Yes (HD) Sister Family Member Ethnicity: Non- Living Status: Hx Family Cancer: Yes (Leukemia) Internal Medicine - H&P: Meds Atenolol [Tenormin] 75 mg PO HS 12/28/16 [History] Cinnamon Bark [Cinnamon] 500 mg PO HS 12/28/16 [History] Donepezil [Aricept] 10 mg PO HS 12/28/16 [History] Memantine HCl 10 mg PO HS 12/28/16 [History] Pantoprazole Sodium [Protonix] 40 mg PO HS 12/28/16 [History] Sertraline [Zoloft] 50 mg PO HS 12/28/16 [History] Aspirin 81 mg PO HS 04/22/17 [History] Nitrofurantoin [Macrodantin] 50 mg PO HS 03/20/19 [History] Allergy/AdvReac Type Severity Reaction Status Date / Time No Known Allergies Allergy Verified 04/22/17 14:34 All Systems PM: A 10-system review of systems was performed and is negative for pertinent findings except as documented above in the HPI. - Constitutional Constitutional: anorexia, no chills, no fever(s) - EENT Eyes: no blurry vision Ears: no tinnitus - Cardiovascular Cardiovascular ROS IM: no chest pain, no dyspnea, no dyspnea on exertion - Respiratory Respiratory: no cough, no dyspnea on exertion, no excessive phlegm production - Gastrointestinal Gastrointestinal: no abdominal pain, no nausea, no vomiting - Genitourinary Genitourinary ROS male: no dysuria, no hematuria - Musculoskeletal Musculoskeletal ROS IM: no arthralgias, no back pain - Integumentary Integumentary IM: no non-healing lesions, no rash - Neurological Neurological ROS: no dizziness, no tingling, no weakness - Psychiatric Psychiatric: confusion, no depression - Endocrine Endocrine IM: no fatigue - Hematologic/Lymphatic Hematologic/Lymphatic: no easy bleeding, no easy bruising - Constitutional Vitals: Temp Pulse Resp BP Pulse Ox 97.4 F L 70 22 126/58 100 03/20/19 20:27 03/20/19 22:00 03/20/19 21:18 03/20/19 22:00 03/20/19 22:00 General appearance: Present: cooperative, A&O X 1, pleasant, obese Exam: general - aox1, pleasantly demented, cooperative, no distress heent - MMM, NCAT eyes - no scleral icterus cardio - rrr, s1s2 , cta lungs - clear BS in all quadrants, not in resp distress, no wheezing/rhonchi/rales noted abd - obese, soft, NTND, no guarding, no peritoneal signs, no rebound extremities - moves all extremities equally, strength intact, no edema neuro - no FND, sensation intact, follows command, bilateral tremors in the UE psych - normal affect and mood, although is confused skin - warm, dry, intact Internal Med - H&P Results - Labs CBC & Chem 7: 03/20/19 20:21 03/20/19 20:21 Labs: Short CBC 03/20/19 Range/Units 20:21 WBC 10.1 (4.3-11.1) K/mcL Hgb 14.3 (12.9-16.9) g/dL Hct 46.4 (37.5-50.1) % Plt Count 175 (140-400) K/mcL Neutrophils # 7.1 (1.6-8.9) K/mcL BMP 03/20/19 20:21 Sodium 142 Potassium 4.7 Chloride 106 Carbon Dioxide 23 BUN 16 Creatinine 1.41 H Glucose 321 H Calcium 8.9 Cardiac Enzymes 03/20/19 Range/Units 20:21 Troponin I 0.07 H* (< 0.04) ng/mL Liver Function 03/20/19 Range/Units 20:21 Total Bilirubin 0.4 (0.3-1.0) mg/dL Direct Bilirubin 0.1 (0.0-0.2) mg/dL AST 31 (13-39) Units/L ALT 27 (7-52) Units/L Alkaline Phosphatase 101 (34-104) Units/L Albumin 3.5 (3.5-5.7) g/dL Urine 03/20/19 Range/Units 20:29 Urine Color Yellow (Yellow) Urine Clarity Turbid A (Clear) Urine pH 5.5 (5.0-8.0) pH Units Ur Specific [place] 1.016 (1.010-1.025) Urine Protein 30 H (Neg-Trace) mg/dL Urine Glucose (UA) 100 H (Normal) mg/dL - ABG Interpretation ABG results: 03/20/19 20:36 VBG pH 7.17 L* VBG pCO2 68 H VBG pO2 25 VBG HCO3 25 - Impressions ITS Impressions Chest X-Ray 03/20/19 19:57 IMPRESSION: Clear lungs. No acute abnormality. No significant change from the prior study. D/ / Shaggy Mast MD / Shaggy Mast MD Interpreting Provider: Shaggy Mast MD Head CT 03/20/19 19:58 IMPRESSION: Multifocal small-vessel ischemic change bilaterally with multiple prior lacunar infarcts Age-indeterminate infarcts are noted in the right thalamus. No hemorrhage. If neurologic symptoms continue, consider MRI D/ / Pasha Benavides / Pasha Benavides Interpreting Provider: Pasha Benavides Abdomen/Pelvis CT 03/20/19 22:00 IMPRESSION: 1. Multiple clusters of bilateral renal calculi more pronounced on the right where there is also chronic hydronephrosis any UPJ obstruction is unchanged. 2. No ureteric calculi. 3. New 7 mm bladder calculus. 4. Stable appearance of circumferential bladder wall thickening, numerous bladder diverticula likely secondary to chronic bladder outlet obstruction from prostatomegaly. 5. 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 D/ / Gomez Mishra MD / Gomez Mishra MD Interpreting Provider: Gomez Mishra MD - Assessment and Plan (1) Sepsis Current Visit: Yes Status: Acute Assessment and plan: Pt presents with AMS, "not acting like himself" per daughter - hx of chronic UTI, on macrobid x 4 years - sepsis secondary to likely UTI Urine cx in the past: 05/11/17: Enterococcus faecalis resistant: cipro, gentamycin, levaquin, streptomycin, tetracycline sensitive: ampicillin, linezolid, macrobid, vancomycin 04/06/17: citrobacter freundii, pansensitive proteus mirabilis, resistant to ampicillin, cipro, levaquin, tmp/smx Evidence for UTI on UA: large leukocyte esterase, large blood, TNTC rbc/wbc, many squamous epithelial cells XR chest negative for acute process CT head (-) hemorrhage CT abdomen and pelvis Multiple clusters of bilateral renal calculi more pronounced on the right where there is also chronic hydronephrosis any UPJ obstruction is unchanged. New 7 mm bladder calculus. Stable appearance of circumferential bladder wall thickening, numerous blad valeriano diverticula likely secondary to chronic bladder outlet obstruction from prostatomegaly ?granulomatous calcifications of liver/spleen EKG negative for ischemia Met sepsis criteria on admission for hypothermia t min of 95.6, HR >90, RR>20 and lactic acidosis Plan: - continue rocephin day 1 - blood cx pending - urine cx pending - continue IVF for a total of ~3100cc 0.9% NS per sepsis protocol - 100cc/hr 0.9% NS for maintenance fluids - FEN: ADA diet - consults: SW consulted, palliative care consulted, ??consider urology consult in AM - dispo: will require inpt treatment of sepsis; daughter requesting POA assignment and placement Qualifiers: Sepsis type: sepsis due to unspecified organism Qualified Code(s): A41.9 - Sepsis, unspecified organism (2) Dementia Current Visit: Yes Status: Acute Assessment and plan: Pt with hx of dementia. Will continue home meds once reconciled. Qualifiers: Dementia type: Alzheimer's disease Alzheimer's disease onset: unspecified onset Dementia behavioral disturbance: with behavioral disturbance Qualified Code(s): G30.9 - Alzheimer's disease, unspecified; F02.81 - Dementia in other diseases classified elsewhere with behavioral disturbance (3) Goals of care, counseling/discussion Current Visit: Yes Status: Acute Assessment and plan: Spoke with daughter at bedside regarding her GOC for father. She states he has no POA at this time and she is having a hard time caring for him at this point due to her being disabled as well. She asked to have someone talk to her about POA appointment, will consult to palliative and SW. Daughter is Kisha phone #[phone] Son will be at [facility] in the AM, he is [place] phone #[phone] (4) Elevated troponin Current Visit: No Status: Acute Assessment and plan: Tropnoin 0.07 on admission, increased to 0.10. Will trend x 2 more. EKG showed n o signs of ischemia. ECHO pending. Denies active CP. Previous ECHO from 2017 Normal left ventricular size and systolic function, LVEF 60-65%. Mild left ventricular diastolic dysfunction. Right ventricle was not well visualized. Appears grossly normal in size and function. Cardiac valves were not well visualized. No evidence of significant valvular dysfunction. Unable to estimate RVSP due to lack of TR jet. (5) UTI (urinary tract infection) Current Visit: No Status: Acute Assessment and plan: Has a hx of chronic UTI, on macrobid x 4 years with urine cx as above. Pt denies any hematuria/dysuria, however, he has advanced dementia and is a poor historian. See plan as above. Qualifiers: Urinary tract infection type: site unspecified Hematuria presence: without hematuria Qualified Code(s): N39.0 - Urinary tract infection, site not specified (6) Lactic acidosis Current Visit: Yes Status: Acute Assessment and plan: Lactic acid elevated at 6.1 on admission, improved to 2.3. Timed lactic acid pending for 0400. Continue IVF. Likely secondary to sepsis. (7) T2DM (type 2 diabetes mellitus) Current Visit: Yes Status: Acute Assessment and plan: T2DM hx not on home diabetes medication. MDSS. ADA diet. Will add SQ long acting insulin if needed. Qualifiers: Diabetes mellitus superintendent container terminal insulin use: without superintendent container terminal use Diabetes mellitus complication status: without complication Qualified Code(s): E11.9 - Type 2 diabetes mellitus without complications (8) Acute encephalopathy Current Visit: Yes Status: Acute Assessment and plan: Likely secondary to progressive dementia vs hyperglycemia vs sepsis. See plan as above for sepsis. (9) Acute respiratory failure Current Visit: No Status: Acute Assessment and plan: Likely secondary to sepsis. NOT on home oxygen, requiring 2-3 L NC. Qualifiers: Respiratory failure complication: hypoxia Qualified Code(s): J96.01 - Acute respiratory failure with hypoxia (10) DVT prophylaxis Current Visit: Yes Status: Acute Assessment and plan: sq heparin (11) Obesity (BMI 30.0-34.9) Current Visit: Yes Status: Acute Assessment and plan: BMI 31.5, chronic. (12) Hypothyroid Current Visit: Yes Status: Acute Assessment and plan: TSH 8.805, not on home medications. Can consider outpatient follow up and repeat of TSH when recovered. Qualifiers: Hypothyroidism type: acquired Qualified Code(s): E03.9 - Hypothyroidism, unspecified (13) CHIDI (acute kidney injury) Current Visit: Yes Status: Acute Assessment and plan: Creatinine 1.41, baseline around 1.1 - 1.2 - likely pre-renal from decreased PO intake, however, in the setting of sepsis/UTI Plan: - avoid nephrotoxins - renally dose medications if needed - I&O's - continue to monitor renal fxn - Time Spent With Patient Total time spent is greater than 50% in coordination of care (as documented) at patient's floor/unit and/or counseling patient: 25 - 35 minutes <Ludy Bautista - Last Filed: 03/21/19 02:22> Date of Encounter: 03/20/19 Internal Medicine - H&P: HPI History of present illness: Mr. Price is a 84 year old male All Systems PM: A 10-system review of systems was performed and is negative for pertinent findings except as documented above in the HPI. - Constitutional Vitals: Temp Pulse Resp BP Pulse Ox 97.9 F 75 18 123/99 98 03/21/19 00:47 03/21/19 01:36 03/21/19 00:47 03/21/19 00:47 03/21/19 00:47 Internal Med - H&P Results - Labs CBC & Chem 7: 03/20/19 20:21 03/20/19 20:21 Labs: Short CBC 03/20/19 Range/Units 20:21 WBC 10.1 (4.3-11.1) K/mcL Hgb 14.3 (12.9-16.9) g/dL Hct 46.4 (37.5-50.1) % Plt Count 175 (140-400) K/mcL Neutrophils # 7.1 (1.6-8.9) K/mcL BMP 03/20/19 20:21 Sodium 142 Potassium 4.7 Chloride 106 Carbon Dioxide 23 BUN 16 Creatinine 1.41 H Glucose 321 H Calcium 8.9 Cardiac Enzymes 03/20/19 03/20/19 Range/Units 20:21 23:33 Troponin I 0.07 H* 0.10 H* (< 0.04) ng/mL Liver Function 03/20/19 Range/Units 20:21 Total Bilirubin 0.4 (0.3-1.0) mg/dL Direct Bilirubin 0.1 (0.0-0.2) mg/dL AST 31 (13-39) Units/L ALT 27 (7-52) Units/L Alkaline Phosphatase 101 (34-104) Units/L Albumin 3.5 (3.5-5.7) g/dL Urine 03/20/19 Range/Units 20:29 Urine Color Yellow (Yellow) Urine Clarity Turbid A (Clear) Urine pH 5.5 (5.0-8.0) pH Units Ur Specific [place] 1.016 (1.010-1.025) Urine Protein 30 H (Neg-Trace) mg/dL Urine Glucose (UA) 100 H (Normal) mg/dL - ABG Interpretation ABG results: 03/20/19 20:36 VBG pH 7.17 L* VBG pCO2 68 H VBG pO2 25 VBG HCO3 25 - Impressions ITS Impressions Chest X-Ray 03/20/19 19:57 IMPRESSION: Clear lungs. No acute abnormality. No significant change from the prior study. D/ / Shaggy Mast MD / Shaggy Mast MD Interpreting Provider: Shaggy Mast MD Head CT 03/20/19 19:58 IMPRESSION: Multifocal small-vessel ischemic change bilaterally with multiple prior lacunar infarcts Age-indeterminate infarcts are noted in the right thalamus. No hemorrhage. If neurologic symptoms continue, consider MRI D/ / Pasha Benavides / Pasha Benavides Interpreting Provider: Pasha Benavides Abdomen/Pelvis CT 03/20/19 22:00 IMPRESSION: 1. Multiple clusters of bilateral renal calculi more pronounced on the right where there is also chronic hydronephrosis any UPJ obstruction is unchanged. 2. No ureteric calculi. 3. New 7 mm bladder calculus. 4. Stable appearance of circumferential bladder wall thickening, numerous bladder diverticula likely secondary to chronic bladder outlet obstruction from prostatomegaly. 5. 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 D/ / Gomez Mishra MD / Gomez Mishra MD Interpreting Provider: Gomez Mishra MD - Assessment and Plan (1) Acute respiratory failure Current Visit: No Status: Acute Qualifiers: Respiratory failure complication: hypoxia Qualified Code(s): J96.01 - Acute respiratory failure with hypoxia (2) Elevated troponin Current Visit: No Status: Acute (3) UTI (urinary tract infection) Current Visit: No Status: Acute Qualifiers: Urinary tract infection type: site unspecified Hematuria presence: without hematuria Qualified Code(s): N39.0 - Urinary tract infection, site not specified (4) Lactic acidosis Current Visit: Yes Status: Acute (5) Sepsis Current Visit: Yes Status: Acute Qualifiers: Sepsis type: sepsis due to unspecified organism Qualified Code(s): A41.9 - Sepsis, unspecified organism (6) DVT prophylaxis Current Visit: Yes Status: Acute (7) Dementia Current Visit: Yes Status: Acute Qualifiers: Dementia type: Alzheimer's disease Alzheimer's disease onset: unspecified onset Dementia behavioral disturbance: with behavioral disturbance Qualified Code(s): G30.9 - Alzheimer's disease, unspecified; F02.81 - Dementia in other diseases classified elsewhere with behavioral disturbance (8) Goals of care, counseling/discussion Current Visit: Yes Status: Acute (9) T2DM (type 2 diabetes mellitus) Current Visit: Yes Status: Acute Qualifiers: Diabetes mellitus superintendent container terminal insulin use: without half-way use Diabetes mellitus complication status: without complication Qualified Code(s): E11.9 - Type 2 diabetes mellitus without complications (10) Acute encephalopathy Current Visit: Yes Status: Acute (11) Obesity (BMI 30.0-34.9) Current Visit: Yes Status: Acute (12) Hypothyroid Current Visit: Yes Status: Acute Qualifiers: Hypothyroidism type: acquired Qualified Code(s): E03.9 - Hypothyroidism, unspecified (13) CHIDI (acute kidney injury) Current Visit: Yes Status: Acute - Time Spent With Patient Total time spent is greater than 50% in coordination of care (as documented) at patient's floor/unit and/or counseling patient: - Attending Attestation I performed a history and physical examination of the patient and discussed his management with the resident. I reviewed the resident's note and agree with the assessment of plan of care. In short patient is a 84-year-old male with a past medical history of dementia, diabetes, hypertension who presented to the ED due to generalized weakness and acute change in mental status. On my assessment, patient was a poor historian and family were not at bedside. See history of present illness for further details. On arrival patient noted to be hypothermic, and mildly KI with a lactic acid of 6.1 and elevated troponin of 0.07. No reports of chest pain and EKG unremarkable. CT of the head showed mi crovascular ischemic changes though unclear if these were new or chronic. CT of the abdomen and pelvis showed bilateral renal colliculi with chronic hydronephrosis , numerous bladder diverticula as well as a 7 mm bladder calculus. Patient received 3 L of fluid boluses while in the ED. Repeat lactic acid trended down to 1.9. Patient begun on ceftriaxone and admitted for possible acute encephalopathy secondary to complicated UTI. We will continue to trend troponin, obtain echocardiogram in the morning and MRI for further evaluation of microvascular changes. Consider urology consult for further evaluation of patient's chronic hydronephrosis.
[2019-03-20] MEDS ORDERED: 0.9 % Sodium Chloride 250 ML IVC ONE (22:53)
[2019-03-20] MEDS ORDERED: cefTRIAXone 1,000 MG in Water for inj. (sterile) 20 ML 10 ML IVPB ONE (22:53)
[2019-03-20] MEDS ORDERED: Dextrose Gel 15 GM/37.5 ML TUBE PO PRN ×2 (23:13)
[2019-03-20] MEDS ORDERED: D5% in Water 1,000 ML IVC PRN (23:13)
[2019-03-20] MEDS ORDERED: *HR* Dextrose 50 % in Water (Syg) 50 ML SYRINGE IVP PRN (23:13)
[2019-03-20] MEDS ORDERED: Naloxone 0.4 MG/ML INJ IVP PRN (23:13)
[2019-03-21] MEDS: Insulin LISPRO 300 UNITS/3 ML VIAL SQ SCH ×5 (00:55→19:36)
[2019-03-21] MEDS ORDERED: 0.9 % Sodium Chloride 1,000 ML IVC SCH (01:00)
[2019-03-21] MEDS: *HR* Heparin 5,000 UNIT/ML VIAL SQ SCH ×3 (01:20→17:44)
--- NOTE | 2019-03-21 08:57 | Internal Med Progress Note ---
Hospitalist Progress Note - Encounter Date of Encounter: 03/21/19 Time of Encounter: 08:57 - Subjective Interval History: no acute events. Patient is up in chair. Does not have any complaints, denies CP, SOB, fevers, dysuria though he does have known history of significant dementia. No family at bedside. - Exam Vitals: Temp Pulse Resp BP Pulse Ox 98.3 F 80 17 107/49 98 03/21/19 07:13 03/21/19 08:34 03/21/19 08:31 03/21/19 07:13 03/21/19 08:31 Exam: general - aox1, pleasantly demented, cooperative, no distress heent - MMM, NCAT eyes - no scleral icterus cardio - rrr, s1s2 , cta lungs - clear BS in all quadrants, not in resp distress, no wheezing/rhonc hi/rales noted abd - obese, soft, NTND, no guarding, no peritoneal signs, no rebound extremities - moves all extremities equally, strength intact, no edema neuro - no FND, sensation intact, follows command, bilateral tremors in the UE psych - normal affect and mood, although is confused skin - warm, dry, intact - Assessment and Plan (1) Acute encephalopathy Current Visit: Yes Status: Acute Assessment and Plan: Likely secondary to progressive dementia vs UTI/sepsis. vs urinary obstruction vs lactic acidosis of 6. Lactic acid now within normal limits after IV fluids Monitor urine output. Follow-up urine cultures, Continue Rocephin Will need to evaluate when POA or family members at bedside to determine baseline. Does not currently appear lethargic as was reported on arrival, possibly mental status improved with current therapy. (2) Acute respiratory failure Current Visit: No Status: Acute Assessment and Plan: Likely secondary to sepsis. NOT on home oxygen, required 3 L NC here but now weaned to room air. (3) CHIDI (acute kidney injury) Current Visit: Yes Status: Acute Assessment and Plan: Creatinine 1.41, near baseline - likely pre-renal from decreased PO intake, however, in the setting of sepsis/UTI Plan: - avoid nephrotoxins BMP pending. Avoid nehrotoxic medications. 3 L Normal saline given so far, stop IV fluids. CT showed new 7 mm stone, no other acute changes from prior study but chronic findings were noted. May need Urology c/s if renal function worsens. (4) Elevated troponin Current Visit: No Status: Acute Assessment and Plan: Tropnoin 0.07 on admission, increased to 0.10. Will trend x 2 more. EKG showed no signs of ischemia. ECHO pending. Denies active CP, SOB Repeat troponin pending. (5) UTI (urinary tract infection) Current Visit: No Status: Acute Assessment and Plan: Has a hx of chronic UTI, on macrobid x 4 years with urine cx as above. Pt denies any hematuria/dysuria, however, he has advanced dementia and is a poor historian. See plan as above. (6) Lactic acidosis Current Visit: Yes Status: Acute Assessment and Plan: Lactic acid elevated at 6.1 on admission, improved to 2.3. and now within normal limits. Likely secondary to sepsis. Now apears euvolemic and hemodynamically stable., will DC iv fluids and monitor. (7) Sepsis Current Visit: Yes Status: Acute Assessment and Plan: Pt presents with AMS, "not acting like himself" per daughter - hx of chronic UTI, on macrobid x 4 years - sepsis secondary to likely UTI Urine cx in the past: 05/11/17: Enterococcus faecalis resistant: cipro, gentamycin, levaquin, streptomycin, tetracycline sensitive: ampicillin, linezolid, macrobid, vancomycin 04/06/17: citrobacter freundii, pansensitive proteus mirabilis, resistant to ampicillin, cipro, levaquin, tmp/smx Evidence for UTI on UA: large leukocyte esterase, large blood, TNTC rbc/wbc, many squamous epithelial cells XR chest negative for acute process CT head (-) hemorrhage CT abdomen and pelvis Multiple clusters of bilateral renal calculi more pronounced on the right where there is also chronic hydronephrosis any UPJ obstruction is unchanged. New 7 mm bladder calculus. Stable appearance of circumferential bladder wall thickening, numerous bladder diverticula likely secondary to chronic bladder outlet obstruction from prostatomegaly ?granulomatous calcifications of liver/spleen EKG negative for ischemia Met sepsis criteria on admission for hypothermia t min of 95.6, HR >90, RR>20 and lactic acidosis Plan: - continue rocephin day 1 - blood cx pending - urine cx pending - continue IVF for a total of ~3100cc 0.9% NS per sepsis protocol - 100cc/hr 0.9% NS for maintenance fluids - FEN: ADA diet - consults: SW consulted, palliative care consulted, ??consider urology consult in AM - dispo: will require inpt treatment of sepsis; daughter requesting POA assignment and placement (8) Dementia Current Visit: Yes Status: Acute Assessment and Plan: Pt with hx of dementia. Continue home medications. (9) Goals of care, counseling/discussion Current Visit: Yes Status: Acute Assessment and Plan: Spoke with daughter at bedside regarding her GOC for father. She states he has no POA at this time and she is having a hard time caring for him at this point due to her being disabled as well. She asked to have someone talk to her about POA appointment, will consult to palliative and SW. Daughter is Kisha phone #[phone] Son will be at [facility] in the AM, he is [place] phone #[phone] (10) T2DM (type 2 diabetes mellitus) Current Visit: Yes Status: Acute Assessment and Plan: T2DM hx not on home diabetes medication. MDSS. ADA diet. Will add SQ long acting insulin if needed. (11) Obesity (BMI 30.0-34.9) Current Visit: Yes Status: Acute Assessment and Plan: BMI 31.5, chronic. (12) Hypothyroid Current Visit: Yes Status: Acute Assessment and Plan: TSH 8.805, not on home medications. Can consider outpatient follow up and repeat of TSH when recovered. (13) DVT prophylaxis Current Visit: Yes Status: Acute Assessment and Plan: sq heparin - Time Spent with Patient Total time spent is greater than 50% in coordination of care (as documented) at patient's floor/unit and/or counseling patient: Internal Medicine: Result - Labs CBC & Chem 7: 03/20/19 20:21 03/20/19 20:21 Labs: Short CBC 03/20/19 Range/Units 20:21 WBC 10.1 (4.3-11.1) K/mcL Hgb 14.3 (12.9-16.9) g/dL Hct 46.4 (37.5-50.1) % Plt Count 175 (140-400) K/mcL Neutrophils # 7.1 (1.6-8.9) K/mcL BMP 03/20/19 20:21 Sodium 142 Potassium 4.7 Chloride 106 Carbon Dioxide 23 BUN 16 Creatinine 1.41 H Glucose 321 H Calcium 8.9 Cardiac Enzymes 03/20/19 03/20/19 Range/Units 20:21 23:33 Troponin I 0.07 H* 0.10 H* (< 0.04) ng/mL Liver Function 03/20/19 Range/Units 20:21 Total Bilirubin 0.4 (0.3-1.0) mg/dL Direct Bilirubin 0.1 (0.0-0.2) mg/dL AST 31 (13-39) Units/L ALT 27 (7-52) Units/L Alkaline Phosphatase 101 (34-104) Units/L Albumin 3.5 (3.5-5.7) g/dL Urine 03/20/19 Range/Units 20:29 Urine Color Yellow (Yellow) Urine Clarity Turbid A (Clear) Urine pH 5.5 (5.0-8.0) pH Units Ur Specific [place] 1.016 (1.010-1.025) Urine Protein 30 H (Neg-Trace) mg/dL Urine Glucose (UA) 100 H (Normal) mg/dL - Impressions Impressions Chest X-Ray 03/20/19 19:57 IMPRESSION: Clear lungs. No acute abnormality. No significant change from the prior study. D/ / Shaggy Mast MD / Shaggy Mast MD Interpreting Provider: Shaggy Mast MD Head CT 03/20/19 19:58 IMPRESSION: Multifocal small-vessel ischemic change bilaterally with multiple prior lacunar infarcts Age-indeterminate infarcts are noted in the right thalamus. No hemorrhage. If neurologic symptoms continue, consider MRI D/ / Pasha Benavides / Pasha Benavides Interpreting Provider: Pasha Benavides Abdomen/Pelvis CT 03/20/19 22:00 IMPRESSION: 1. Multiple clusters of bilateral renal calculi more pronounced on the right where there is also chronic hydronephrosis any UPJ obstruction is unchanged. 2. No ureteric calculi. 3. New 7 mm bladder calculus. 4. Stable appearance of circumferential bladder wall thickening, numerous bladder diverticula likely secondary to chronic bladder outlet obstruction from prostatomegaly. 5. 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 D/ / Gomez Mishra MD / Gomez Mishra MD Interpreting Provider: Gomez Mishra MD Consult Discharge Plan - Plan Referrals: Danny Walker MD [Primary Care Provider] - (2) Acute respiratory failure Qualifiers: Respiratory failure complication: hypoxia Qualified Code(s): J96.01 - Acute respiratory failure with hypoxia (5) UTI (urinary tract infection) Qualifiers: Urinary tract infection type: site unspecified Hematuria presence: without hematuria Qualified Code(s): N39.0 - Urinary tract infection, site not specified (7) Sepsis Qualifiers: Sepsis type: sepsis due to unspecified organism Qualified Code(s): A41.9 - Sepsis, unspecified organism (8) Dementia Qualifiers: Dementia type: Alzheimer's disease Alzheimer's disease onset: unspecified onset Dementia behavioral disturbance: with behavioral disturbance Qualified Code(s): G30.9 - Alzheimer's disease, unspecified; F02.81 - Dementia in other diseases classified elsewhere with behavioral disturbance (10) T2DM (type 2 diabetes mellitus) Qualifiers: Diabetes mellitus assisted insulin use: without technician terminal and repeater use Diabetes mellitus complication status: without complication Qualified Code(s): E11.9 - Type 2 diabetes mellitus without complications (12) Hypothyroid Qualifiers: Hypothyroidism type: acquired Qualified Code(s): E03.9 - Hypothyroidism, unspecified
[2019-03-21] MEDS ORDERED: Perflutren Lipid Microsphere 1.3 ML in 0.9 % Sodium Chloride 8.7 ML IVP ONE (09:45)
[2019-03-21 10:46] LABS: Hematocrit 38.9 % (37.5-50.1); Mean Corpuscular HGB Conc 30.8 g/dL (31.6-35.5); Mean Corpuscular Hemoglobin 30.3 pg (28.0-33.3); Mean Corpuscular Volume 98.2 fL (83.0-100.0); Platelet Count 149 K/mcL (140-400); Red Blood Count 3.96 M/mcL (4.19-5.50); Red Cell Distribution Width 14.3 % (11.5-14.5)
[2019-03-21 11:02] LABS: BUN/Creatinine Ratio 13 (6-26); Blood Urea Nitrogen 15 mg/dL (8-23); Calcium 8.3 mg/dL (8.6-10.3); Carbon Dioxide 28 mEq/L (23-29); Chloride 109 mEq/L (98-107); Glucose 209 mg/dL (70-105); Osmolality,Calculated 301 (280-300); Potassium 4.5 mEq/L (3.5-5.1); Sodium 142 mEq/L (136-145); eGFR For Non-African Americans 60 (> 60)
[2019-03-21] MEDS: Aspirin 81 MG TAB.CHEW PO SCH (19:39)
[2019-03-21] MEDS: cefTRIAXone 2,000 MG in Water for inj. (sterile) 20 ML 20 ML IVP SCH (23:08)
[2019-03-22] MEDS: *HR* Heparin 5,000 UNIT/ML VIAL SQ SCH ×2 (05:06→16:55)
[2019-03-22 06:29] LABS: Basophils % 0.2 %; Eosinophils # 0.1 K/mcL (0.0-0.6); Eosinophils % 3.1 %; Hematocrit 36.2 % (37.5-50.1); Hemoglobin 11.3 g/dL (12.9-16.9); Immature Granulocytes % 0.4 % (0-4); Lymphocytes # 1.5 K/mcL (0.6-4.6); Lymphocytes % 33.6 %; Mean Corpuscular HGB Conc 31.2 g/dL (31.6-35.5); Mean Corpuscular Hemoglobin 30.1 pg (28.0-33.3); Mean Corpuscular Volume 96.5 fL (83.0-100.0); Monocytes # 0.4 K/mcL (0.0-1.3); Monocytes % 9.4 %; Neutrophils # 2.4 K/mcL (1.6-8.9); Platelet Count 128 K/mcL (140-400); Red Blood Count 3.75 M/mcL (4.19-5.50); Red Cell Distribution Width 14.2 % (11.5-14.5); Segmented Neutrophils % 53.3 %
[2019-03-22 06:47] LABS: BUN/Creatinine Ratio 12 (6-26); Blood Urea Nitrogen 12 mg/dL (8-23); Calcium 8.3 mg/dL (8.6-10.3); Carbon Dioxide 26 mEq/L (23-29); Chloride 109 mEq/L (98-107); Glucose 111 mg/dL (70-105); Osmolality,Calculated 286 (280-300); Potassium 4.4 mEq/L (3.5-5.1); Sodium 138 mEq/L (136-145); eGFR For Non-African Americans > 60 (> 60)
[2019-03-22 07:04] LABS: Estimated Average Glucose 209 mg/dl; Hemoglobin A1C 8.9 %
[2019-03-22] MEDS: Insulin LISPRO 300 UNITS/3 ML VIAL SQ SCH ×4 (08:49→23:41)
--- NOTE | 2019-03-22 09:41 | Electrocardiograph Report ---
[address] [place], [place] [address] Test Date: 2019-03-20 Pat Name: Louis Price Department: [id number] Room: 2N15 Gender: M Therapeutic Consultant: : 1935 Requested By: Bud Hall Order Number: [id number] Reading MD: Oswaldo Tellez Measurements Intervals Anna Rate: 84 P: 22 KS: 35 QRS: 0 QRSD: 186 T: -6 QT: 407 QTc: 482 Interpretive Statements Sinus rhythm Short KS interval Baseline wander in lead(s) I II aVR Electronically Signed On 03-22-2019 9:39:17 EDT by Oswaldo Tellez
--- NOTE | 2019-03-22 15:09 | Internal Med Progress Note ---
Hospitalist Progress Note - Encounter Date of Encounter: 03/22/19 Time of Encounter: 15:05 - Subjective Interval History: Does not have any complaints, denies CP, SOB, fevers, dysuria though he does have known history of significant dementia. No family at bedside. - Exam Vitals: Temp Pulse Resp BP Pulse Ox 98.3 F 60 18 104/55 94 03/22/19 11:27 03/22/19 11:27 03/22/19 11:27 03/22/19 11:27 03/22/19 11:27 Exam: General - aox1, pleasantly demented, cooperative, no distress heent - MMM, NCAT eyes - no scleral icterus cardio - RRR, s1s2 , no murmur lungs - clear BS in all quadrants, not in resp distress, no wheezing/rhonchi/rales noted abd - obese, soft, NTND, no guarding, no peritoneal signs, no rebound extremities - moves all extremities equally, strength intact, no edema neuro - no FND, sensation intact, follows command, bilateral tremors in the UE psych - normal affect and mood, although is confused skin - warm, dry, intact - Assessment and Plan (1) Sepsis Current Visit: Yes Status: Acute Assessment and Plan: Pt presents with AMS, "not acting like himself" per daughter - hx of chronic UTI, on macrobid x 4 years - sepsis secondary to likely UTI Evidence for UTI on UA: large leukocyte esterase, large blood, TNTC rbc/wbc, many squamous epithelial cells XR chest negative for acute process CT head (-) hemorrhage CT abdomen and pelvis Multiple clusters of bilateral renal calculi more pronounced on the right where there is also chronic hydronephrosis any UPJ obstruction is unchanged. New 7 mm bladder calculus. Stable appearance of circumferential bladder wall thickening, numerous bladder diverticula likely secondary to chronic bladder outlet obstruction from prostatomegaly ?granulomatous calcifications of liver/spleen EKG negative for ischemia Met sepsis criteria on admission for hypothermia t min of 95.6, HR >90, RR>20 and lactic acidosis Plan: - continue rocephin day 1 - blood cx pending - urine cx so far shwoing Gram cocci - Rec gentle hydration only - DC 100cc/hr 0.9% NS for maintenance fluids - consults: SW consulted, palliative care consulted, Urology consulted - Dispo: Daughter requesting POA assignment and placement (2) UTI (urinary tract infection) Current Visit: No Status: Acute Assessment and Plan: Has a hx of chronic UTI, on macrobid x 4 years with urine cx as above. Pt denies any hematuria/dysuria, however, he has advanced dementia and is a poor historian. See plan as above. (3) Acute respiratory failure Current Visit: No Status: Acute Assessment and Plan: Likely secondary to sepsis. NOT on home oxygen, required 3 L NC here but now weaned to room air. (4) Elevated troponin Current Visit: No Status: Acute Assessment and Plan: Tropnoin 0.07 on admission, increased to 0.10. Will trend x 2 more. EKG showed SR no signs of ischemia. ECHO showed EF 60-65%. Denies active CP, SOB Troponin 0.07 --> 0.10 -->0.16 --> 0.15 --> 0.13. Upon review of prior troponin, it appears that pt has chronically elevated troponin levels. EKG PRN. If pt has CP or SOB, will consider cardiology consult. Echo results below EV/EV echocardiogram w enhance Impressions: Technically sub-optimal due to poor echocardiographic windows. Many cardiac structures were not well visualized. LVEF 60-65%. Not all segments were well visualized, but overall function is normal. Normal LV chamber size. Mild left ventricular diastolic dysfunction. Right ventricle was not well visualized. Valves were not well visualized. (5) CHIDI (acute kidney injury) Current Visit: Yes Status: Acute Assessment and Plan: Creatinine 1.41, near baseline - likely pre-renal from decreased PO intake, however, in the setting of sepsis/UTI - avoid nephrotoxins - CHIDI resolved, after IVF. 3 L Normal saline given so far. BMP PRN - Avoid nephrotoxic medications. CT showed new 7 mm stone, no other acute changes from prior study but chronic findings were noted. Will consult Urology due to bladder calculus and multiple renal calculi. (6) Lactic acidosis Current Visit: Yes Status: Acute Assessment and Plan: Lactic acid elevated at 6.1 on admission, improved to 2.3. and now within normal limits. Likely secondary to sepsis. Now appears euvolemic and hemodynamically stable. IV fluids discontinued and will continue to monitor. (7) Goals of care, counseling/discussion Current Visit: Yes Status: Acute Assessment and Plan: PT/OT consulted and CM/SW working on placement. Daughter is Kisha phone #[phone] Son, [place] phone #[phone] (8) T2DM (type 2 diabetes mellitus) Current Visit: Yes Status: Acute Assessment and Plan: T2DM hx not on home diabetes medication. MDSS. ADA diet. On SQ long acting insulin. (9) Acute encephalopathy Current Visit: Yes Status: Acute Assessment and Plan: Likely secondary to progressive dementia vs UTI/sepsis. vs urinary obstruction vs lactic acidosis of 6. Lactic acid now within normal limits after IV fluids Monitor urine output. Follow-up urine cultures. Continue Rocephin Will need to evaluate when POA or family members at bedside to determine baseline. Does not currently appear lethargic as was reported on arrival, possibly mental status improved with current therapy. (10) Obesity (BMI 30.0-34.9) Current Visit: Yes Status: Acute Assessment and Plan: BMI 31.5, chronic. (11) Dementia Current Visit: Yes Status: Acute Assessment and Plan: Pt with hx of dementia. Continue home medications. (12) Hypothyroid Current Visit: Yes Status: Acute Assessment and Plan: TSH 8.805, not on home medications. Will check F T4 and T3 levels. If still abnormal, will consider stating on Levothyroxine. DVT Prophylaxis: Heparin - Time Spent with Patient Total time spent is greater than 50% in coordination of care (as documented) at patient's floor/unit and/or counseling patient: less than 15 minutes Plan of Care Discussed with: patient Internal Medicine: Result - Labs CBC & Chem 7: 03/22/19 06:07 03/22/19 06:07 Labs: Short CBC 03/22/19 Range/Units 06:07 WBC 4.5 (4.3-11.1) K/mcL Hgb 11.3 L (12.9-16.9) g/dL Hct 36.2 L (37.5-50.1) % Plt Count 128 L (140-400) K/mcL Neutrophils # 2.4 (1.6-8.9) K/mcL BMP 03/22/19 06:07 Sodium 138 Potassium 4.4 Chloride 109 H Carbon Dioxide 26 BUN 12 Creatinine 0.99 Glucose 111 H Calcium 8.3 L Cardiac Enzymes 03/21/19 03/21/19 Range/Units 14:19 18:43 Troponin I 0.15 H* 0.13 H* (< 0.04) ng/mL Consult Discharge Plan - Plan Referrals: Danny Walker MD [Primary Care Provider] - (1) Sepsis Qualifiers: Sepsis type: sepsis due to unspecified organism Qualified Code(s): A41.9 - Sepsis, unspecified organism (2) UTI (urinary tract infection) Qualifiers: Urinary tract infection type: site unspecified Hematuria presence: without hematuria Qualified Code(s): N39.0 - Urinary tract infection, site not specified (3) Acute respiratory failure Qualifiers: Respiratory failure complication: hypoxia Qualified Code(s): J96.01 - Acute respiratory failure with hypoxia (8) T2DM (type 2 diabetes mellitus) Qualifiers: Diabetes mellitus custodial insulin use: without ferry terminal agent use Diabetes mellitus complication status: without complication Qualified Code(s): E11.9 - Type 2 diabetes mellitus without complications (11) Dementia Qualifiers: Dementia type: Alzheimer's disease Alzheimer's disease onset: unspecified onset Dementia behavioral disturbance: with behavioral disturbance Qualified Code(s): G30.9 - Alzheimer's disease, unspecified; F02.81 - Dementia in other diseases classified elsewhere with behavioral disturbance (12) Hypothyroid Qualifiers: Hypothyroidism type: acquired Qualified Code(s): E03.9 - Hypothyroidism, unspecified
--- NOTE | 2019-03-22 15:55 | Urology - Consult Note ---
Date of Encounter: 03/22/19 Time of Encounter: 15:52 - Assessment and Plan (1) UPJ obstruction, acquired Current Visit: Yes Status: Acute Assessment and plan: Stable right UPJ obstruction via serial CT imaging. This does not appear to be functioning significant. Renal functions are normal. Plan: Observation (2) Bladder calculus Current Visit: Yes Status: Acute Assessment and plan: 9 mm bladder calculus noted on CT. Would not recommend surgical intervention for asymptomatic bladder calculus and an octogenarian who is DNR CC. Plan: Observation (3) Bladder outlet obstruction Current Visit: Yes Status: Acute Assessment and plan: Long-standing high-grade bladder outlet obstruction as evidenced by end-stage bladder changes on CT including severe trabeculation and numerous bladder diverticulum. Patient would benefit from maximal BPH meds. Plan: Max BPH meds as below. (4) BPH (benign prostatic hyperplasia) Current Visit: Yes Status: Acute Assessment and plan: Severe end-stage bladder changes with heavy trabeculation and numerous bladder diverticulum consistent with long-standing high-grade bladder outlet obstruction. Medication review shows no BPH meds. Patient does report some decrease force of stream and intermittency. Patient would benefit from max BPH meds to prevent further deterioration of the lower urinary tract as well as provide some obstruction relief. Plan: Finasteride 5 mg daily. Tamsulosin 0.4 mg Qualifiers: Lower urinary tract symptom presence: symptoms present Lower urinary tract symptom detail: weak urinary stream Qualified Code(s): N40.1 - Benign prostatic hyperplasia with lower urinary tract symptoms; R39.12 - Poor urinary stream (5) Nephrolithiasis Current Visit: No Status: Acute Assessment and plan: Nonobstructive bilateral renal calculi. Plan: Would avoid surgical intervention of asymptomatic bilateral renal calculi in this DNR CC octogenarian. Urology CN:HPI Consult date: 03/22/19 Requesting physician: Nathalie Meyers History of present illness: Patient found have urinary abnormalities on CT incidentally on admission workup for nonneurologic issues. CT suggest chronic stable right UPJ obstruction and long-standing high-grade bladder outlet obstruction. Renal functions as of this morning are normal. Additionally, renal and bladder stones are identified. He denies fevers chills nausea vomiting or pain. Patient reports baseline obstructive voiding symptoms of decreased force of stream and intermittency at home. Distally reports to 1 hour daytime frequency and nocturia 2.5. Past Med Surg Social Fam HX - Past Medical History Medical history: dementia, diabetes, hyperlipidemia, hypertension, other Psychiatric history: anxiety, depression - Past Surgical History Surgical History: appendectomy Additional surgical history: hernia repair - Social History Smoking Status: Former smoker Smokeless Tobacco Status: No Alcohol use: unknown Drug use: unknown - Family History Father Family Member Ethnicity: Non- Living Status: Hx Family Respiratory Disorders: Yes (Emphysema) Mother Family Member Ethnicity: Non- Living Status: Hx Family Cancer: Yes (Lung) Brother Family Member Ethnicity: Non- Living Status: Still Living Hx Family Cardiac Disorders: Yes (HD) Sister Family Member Ethnicity: Non- Living Status: Hx Family Cancer: Yes (Leukemia) Medications and Allergies Atenolol [Tenormin] 75 mg PO HS 12/28/16 [History] Cinnamon Bark [Cinnamon] 500 mg PO HS 12/28/16 [History] Donepezil [Aricept] 10 mg PO HS 12/28/16 [History] Memantine HCl 10 mg PO HS 12/28/16 [History] Pantoprazole Sodium [Protonix] 40 mg PO HS 12/28/16 [History] Sertraline [Zoloft] 50 mg PO HS 12/28/16 [History] Aspirin 81 mg PO HS 04/22/17 [History] Nitrofurantoin [Macrodantin] 50 mg PO HS 03/20/19 [History] Allergy/AdvReac Type Severity Reaction Status Date / Time No Known Allergies Allergy Verified 04/22/17 14:34 Review of Systems - Constitutional no chills, no fever(s) - EENT Nose, mouth and throat: no dizziness, no headache(s) - Cardiovascular no chest pain, no diaphoresis - Respiratory no cough, no dyspnea - Gastrointestinal no abdominal pain - Genitourinary no hematuria, no urinary urgency - Musculoskeletal no back pain, no muscle weakness - Integumentary no erythema, no rash - Neurological no confusion, no sensory deficit - Psychiatric no anxiety - Hematologic/Lymphatic no easy bleeding, no easy bruising - Allergic/Immunologic no throat swelling, no wheezing Exam Initial Vital Signs Temp Pulse Resp BP Pulse Ox 95.6 F L 93 24 101/81 97 03/20/19 19:55 03/20/19 19:55 03/20/19 19:55 03/20/19 19:55 03/20/19 19:55 - General physical appearance Present: no distress, no pain - Eyes Present: normal ocular movement. Absent: icteric - ENT Present: normal nares, normal mucosa - Neck Present: trachea midline - Respiratory Present: normal respiratory effort - Abdomen Abdomen: Present: soft, non tender - Integumentary Present: no rash, no growths - Neurologic Present: normal coordination - Musculoskeletal Present: other (Moves extremities bilaterally) Urology Results - Labs 03/22/19 06:07 03/22/19 06:07 Abnormal lab results RBC 3.75 M/mcL (4.19-5.50) L 03/22/19 06:07 Hgb 11.3 g/dL (12.9-16.9) L 03/22/19 06:07 Hct 36.2 % (37.5-50.1) L 03/22/19 06:07 MCHC 31.2 g/dL (31.6-35.5) L 03/22/19 06:07 Plt Count 128 K/mcL (140-400) L 03/22/19 06:07 VBG pH 7.17 pH Units (7.32-7.42) L* 03/20/19 20:36 VBG pCO2 68 mmHg (41-51) H 03/20/19 20:36 Chloride 109 mEq/L (98-107) H 03/22/19 06:07 1.41 mg/dL (0.70-1.30) H 03/20/19 20:21 Est GFR ( Amer) 58 (> 60) L 03/20/19 20:21 Est GFR (Non-Af Amer) 48 (> 60) L 03/20/19 20:21 Glucose 111 mg/dL (70-105) H 03/22/19 06:07 POC Glucose 121 mg/dL (70-99) H 03/21/19 16:35 8.9 % (-5.6) H 03/22/19 06:07 301 (280-300) H 03/21/19 10:29 Lactic Acid 2.3 mmol/L (0.5-2.2) H 03/20/19 23:11 Calcium 8.3 mg/dL (8.6-10.3) L 03/22/19 06:07 0.13 ng/mL (< 0.04) H* 03/21/19 18:43 1.0 (1.1-2.2) L 03/20/19 20:21 Beta-Hydroxybutyric Acd 0.30 mmol/L (0.02-0.27) H 03/20/19 20:21 TSH 8.805 mcIU/mL (0.340-5.600) H 03/20/19 20:21 Turbid (Clear) A 03/20/19 20:29 30 mg/dL (Neg-Trace) H 03/20/19 20:29 100 mg/dL (Normal) H 03/20/19 20:29 Large (Negative) H 03/20/19 20:29 Ur Leukocyte Esterase Large (Negative) H 03/20/19 20:29 TNTC per hpf (0-3) H 03/20/19 20:29 TNTC per hpf (0-3) H 03/20/19 20:29 Ur Squamous Epith Cells Many per lpf (None-Few) H 03/20/19 20:29 Many per hpf (None-Few) H 03/20/19 20:29 Ur Culture Indicated? YES (NO) A 03/20/19 20:29 Diabetes panel 03/22/19 03/22/19 Range/Units 06:07 06:07 Sodium 138 (136-145) mEq/L Potassium 4.4 (3.5-5.1) mEq/L Chloride 109 H (98-107) mEq/L Carbon Dioxide 26 (23-29) mEq/L BUN 12 (8-23) mg/dL Creatinine 0.99 (0.70-1.30) mg/dL Glucose 111 H (70-105) mg/dL Hemoglobin A1c 8.9 H ( - 5.6) % Calcium 8.3 L (8.6-10.3) mg/dL Calcium panel 03/22/19 Range/Units 06:07 Calcium 8.3 L (8.6-10.3) mg/dL Pituitary panel 03/22/19 Range/Units 06:07 Sodium 138 (136-145) mEq/L Potassium 4.4 (3.5-5.1) mEq/L Chloride 109 H (98-107) mEq/L Carbon Dioxide 26 (23-29) mEq/L BUN 12 (8-23) mg/dL Creatinine 0.99 (0.70-1.30) mg/dL Glucose 111 H (70-105) mg/dL Calcium 8.3 L (8.6-10.3) mg/dL Adrenal panel 03/22/19 Range/Units 06:07 Sodium 138 (136-145) mEq/L Potassium 4.4 (3.5-5.1) mEq/L Chloride 109 H (98-107) mEq/L Carbon Dioxide 26 (23-29) mEq/L BUN 12 (8-23) mg/dL Creatinine 0.99 (0.70-1.30) mg/dL Glucose 111 H (70-105) mg/dL Calcium 8.3 L (8.6-10.3) mg/dL All other labs normal. - Imaging CT scan - abdomen: image reviewed (Images reviewed and interpreted independently) CT scan - pelvis: image reviewed Consult Discharge Plan - Plan Referrals: Danny Walker MD [Primary Care Provider] -
[2019-03-22] MEDS: Aspirin 81 MG TAB.CHEW PO SCH (20:11)
[2019-03-23] MEDS: cefTRIAXone 2,000 MG in Water for inj. (sterile) 20 ML 20 ML IVP SCH (00:40)
[2019-03-23 04:27] LABS: Thyroid Stimulating Hormone 1.57 mcIU/mL (0.340-5.600)
[2019-03-23 04:28] LABS: Triiodothyronine (T3) Free 2.86 pg/mL (2.50-3.90)
[2019-03-23] MEDS: *HR* Heparin 5,000 UNIT/ML VIAL SQ SCH ×2 (06:09→16:51)
[2019-03-23] MEDS: Finasteride 5 MG TABLET PO SCH (07:43)
[2019-03-23] MEDS: Insulin LISPRO 300 UNITS/3 ML VIAL SQ SCH ×4 (07:44→20:51)
--- NOTE | 2019-03-23 09:01 | Urology Progress Note ---
Date of Encounter: 03/23/19 Time of Encounter: 08:20 - Assessment and Plan (1) BPH (benign prostatic hyperplasia) Current Visit: Yes Status: Acute Assessment and plan: Patient is an 84-year-old male who presents with benign prostatic hyperplasia. I discussed with patient if he becomes unable to urinate, I will place a urinary catheter. Patient is now receiving Flomax and finasteride daily. I explained finasteride may take up to 6 months before he notices any improvement in urinary habits. Patient verbalizes understanding, and he wishes to follow up as an outpatient. Qualifiers: Lower urinary tract symptom presence: symptoms present Lower urinary tract symptom detail: weak urinary stream Qualified Code(s): N40.1 - Benign prostatic hyperplasia with lower urinary tract symptoms; R39.12 - Poor urinary stream (2) Bladder calculus Current Visit: Yes Status: Acute Assessment and plan: Patient is an 84-year-old male who presents with bladder calculus. Patient denies any gross hematuria. I counseled patient on the possibility of gross hematuria with bladder calculus. Patient has not experienced any hematuria so far. Patient has deferred treatment for now, but he will contact us if he experiences any pain or bleeding. Progress Note Subjective: no new complaints Narrative: Patient seen and examined sitting upright in chair eating breakfast in no apparent distress. Patient is tolerating normal diet without nausea or vomiting. Patient reports he is voiding with minimal difficulty. Patient feels as though he is emptying his bladder. Patient denies any gross hematuria, flank pain, fever or chills. Objective Initial Vital Signs Temp Pulse Resp BP Pulse Ox 95.6 F L 93 24 101/81 97 03/20/19 19:55 03/20/19 19:55 03/20/19 19:55 03/20/19 19:55 03/20/19 19:55 - General physical appearance Present: no distress, no pain - Respiratory Present: normal expansion, normal respiratory effort - Abdomen Present: soft, non tender - Integumentary Present: no rash, no abnormal pigmentation - Musculoskeletal Present: normal posture - Psychiatric Present: oriented to time, oriented to person, oriented to place, speech is normal, memory intact - Labs 03/22/19 06:07 03/22/19 06:07 Thyroid panel 03/23/19 Range/Units 03:36 TSH 1.570 (0.340-5.600) mcIU/mL Pituitary panel 03/23/19 Range/Units 03:36 TSH 1.570 (0.340-5.600) mcIU/mL Consult Discharge Plan - Plan Referrals: Danny Walker MD [Primary Care Provider] -
--- NOTE | 2019-03-23 09:30 | Internal Med Progress Note ---
Hospitalist Progress Note - Encounter Date of Encounter: 03/23/19 Time of Encounter: 09:21 - Subjective Interval History: Patient seen and examined this morning at bedside. No acute overnight events. Denies any nausea, vomiting or diarrhea. Denies new complains. Do fever, chills, abdominal pain, fever or chills. - Exam Vitals: Temp Pulse Resp BP Pulse Ox 98.3 F 63 16 111/62 92 03/23/19 07:11 03/23/19 07:11 03/23/19 07:11 03/23/19 07:11 03/23/19 07:11 Exam: General - nad Cardio - RRR, s1s2 , no murmur Lungs - CTAB, no wheezing/rhonchi/rales noted Abd - obese, soft, NTND, no guarding, no peritoneal signs, no rebound ext- moves all extremities equally, strength intact, no edema neuro - AOx3, no focal deficits - Assessment and Plan (1) Acute respiratory failure Current Visit: No Status: Acute (2) Elevated troponin Current Visit: No Status: Acute (3) UTI (urinary tract infection) Current Visit: No Status: Acute (4) Lactic acidosis Current Visit: Yes Status: Acute (5) Sepsis Current Visit: Yes Status: Acute (6) Dementia Current Visit: Yes Status: Acute (7) Goals of care, counseling/discussion Current Visit: Yes Status: Acute (8) T2DM (type 2 diabetes mellitus) Current Visit: Yes Status: Acute (9) Acute encephalopathy Current Visit: Yes Status: Acute (10) Obesity (BMI 30.0-34.9) Current Visit: Yes Status: Acute (11) Hypothyroid Current Visit: Yes Status: Acute (12) CHIDI (acute kidney injury) Current Visit: Yes Status: Acute - Summary of Assessment and Plan Summary of Assessment and Plan: Assessment Sepsis Lactic acidosis UTI Acute hypoxic respiratory failure Elevated troponin CHIDI- resolved Bladder calculus Diabetes Dementia Obesity Hypothyroid BPH DVT prophylaxis Plan - Sepsis resolved. Activity normalize. Urine culture growing enterococcus faecalis. Start patient on ampicillin stop ceftriaxone. Blood Cultures NGTD 03/30/19. - Elevated troponin flat dynamics. Patient without chest pain. EKG without signs of ischemia. Previously with - CHIDI resolved with IV fluids 3 L. - Sliding scale insulin and Accu-Cheks for with diabetic diet - Continue Flomax and finasteride for BPH. no further treatment for bladdre calculus per urology. - Thyroid study unremarkable. - Awaiting SNF placement. - Time Spent with Patient Total time spent is greater than 50% in coordination of care (as documented) at patient's floor/unit and/or counseling patient: Internal Medicine: Result - Labs CBC & Chem 7: 03/22/19 06:07 03/22/19 06:07 Consult Discharge Plan - Plan Referrals: Danny Walker MD [Primary Care Provider] - (1) Acute respiratory failure Qualifiers: Respiratory failure complication: hypoxia Qualified Code(s): J96.01 - Acute respiratory failure with hypoxia (3) UTI (urinary tract infection) Qualifiers: Urinary tract infection type: site unspecified Hematuria presence: without hematuria Qualified Code(s): N39.0 - Urinary tract infection, site not specified (5) Sepsis Qualifiers: Sepsis type: sepsis due to unspecified organism Qualified Code(s): A41.9 - Sepsis, unspecified organism (6) Dementia Qualifiers: Dementia type: Alzheimer's disease Alzheimer's disease onset: unspecified onset Dementia behavioral disturbance: with behavioral disturbance Qualified Code(s): G30.9 - Alzheimer's disease, unspecified; F02.81 - Dementia in other diseases classified elsewhere with behavioral disturbance (8) T2DM (type 2 diabetes mellitus) Qualifiers: Diabetes mellitus detention insulin use: without detention use Diabetes mellitus complication status: without complication Qualified Code(s): E11.9 - Type 2 diabetes mellitus without complications (11) Hypothyroid Qualifiers: Hypothyroidism type: acquired Qualified Code(s): E03.9 - Hypothyroidism, unspecified
[2019-03-23] MEDS: Ampicillin 1,000 MG in 0.9 % Sodium Chloride Mini Bag 100 ML IVPB SCH ×3 (12:08→23:35)
[2019-03-23] MEDS: Aspirin 81 MG TAB.CHEW PO SCH (20:53)
[2019-03-24] MEDS: *HR* Heparin 5,000 UNIT/ML VIAL SQ SCH ×2 (05:24→17:12)
[2019-03-24] MEDS: Ampicillin 1,000 MG in 0.9 % Sodium Chloride Mini Bag 100 ML IVPB SCH ×3 (05:25→17:13)
[2019-03-24] MEDS: Insulin LISPRO 300 UNITS/3 ML VIAL SQ SCH ×3 (07:58→17:12)
[2019-03-24] MEDS: Finasteride 5 MG TABLET PO SCH (07:58)
--- NOTE | 2019-03-24 10:36 | Discharge Summary ---
- NOTES TO OUTPATIENT PROVIDER Notes to Outpatient Provider: Patient will outpatient follow up with Urology. To finish antibiotic course. Started on metformin for diabetes. Orders not resulted at time of discharge: Pending orders 03/20/19 20:21 Culture,Blood [BC] Stat Date of Encounter: 03/24/19 Time of Encounter: 10:36 - Discharge Diagnosis (1) Acute respiratory failure Priority: Primary Status: Acute Qualifiers: Respiratory failure complication: hypoxia Qualified Code(s): J96.01 - Acute respiratory failure with hypoxia (2) Elevated troponin Priority: Primary Status: Acute (3) UTI (urinary tract infection) Priority: Primary Status: Acute Qualifiers: Urinary tract infection type: site unspecified Hematuria presence: without hematuria Qualified Code(s): N39.0 - Urinary tract infection, site not specified (4) Lactic acidosis Priority: Primary Status: Acute (5) Sepsis Priority: Primary Status: Acute Qualifiers: Sepsis type: sepsis due to unspecified organism Qualified Code(s): A41.9 - Sepsis, unspecified organism (6) Dementia Priority: Secondary Status: Acute Qualifiers: Dementia type: Alzheimer's disease Alzheimer's disease onset: unspecified onset Dementia behavioral disturbance: with behavioral disturbance Qualified Code(s): G30.9 - Alzheimer's disease, unspecified; F02.81 - Dementia in other diseases classified elsewhere with behavioral disturbance (7) Goals of care, counseling/discussion Priority: Secondary Status: Acute (8) T2DM (type 2 diabetes mellitus) Priority: Secondary Status: Acute Qualifiers: Diabetes mellitus intermodal dispatcher insulin use: without intermodal dispatcher use Diabetes mellitus complication status: without complication Qualified Code(s): E11.9 - Type 2 diabetes mellitus without complications (9) Acute encephalopathy Priority: Primary Status: Acute (10) Obesity (BMI 30.0-34.9) Priority: Secondary Status: Acute (11) Hypothyroid Priority: Secondary Status: Acute Qualifiers: Hypothyroidism type: acquired Qualified Code(s): E03.9 - Hypothyroidism, unspecified (12) CHIDI (acute kidney injury) Priority: Primary Status: Acute Hospital course: Mr. Price is a 84 year old male with pmh of dementia, diabetes, htn, hld , anxiety, depression came in with altered mental status. He was found to have sepsis likely secondary to UTI, CHIDI and lactic acidosis with elevated troponin. CT head was unremarkable. CT abdomen showed b/l renal calculi and hydronehrosis with bladder diverticula and calculus. He was give IVFs and started on empiric ceftriaxone. Urology was consulted. No surgical recommendation was needed per urology. Urine grew enterococcus fecalis and antibiotics were adjusted. Troponin remained flat and he was asymptomatic. As he had previously elevated troponin. chronically. His a1c was found to be elevated. sepsis resolved. His mentation improved. Patient is medically stable to discharge but is awaiting placement. Will discharge to finished 10 day to antibiotic course and with metformin for diabetes. Discharge discussed with: patient, nurse - Time Spent with Patient Total time spent providing and/or coordinating discharge services: Time spent: Greater than 30 minutes (40) - Discharge Medications Prescriptions: New Tamsulosin [Flomax] 0.4 mg PO DAILY 30 Days #30 capsule Finasteride [Proscar] 5 mg PO DAILY 30 Days #30 tablet Metformin HCl 1,000 mg PO BIDWM 30 Days #60 tablet Continued Sertraline [Zoloft] 50 mg PO HS Pantoprazole Sodium [Protonix] 40 mg PO HS Memantine HCl 10 mg PO HS Atenolol [Tenormin] 75 mg PO HS Donepezil [Aricept] 10 mg PO HS Cinnamon Bark [Cinnamon] 500 mg PO HS Aspirin 81 mg PO HS Discontinued Nitrofurantoin [Macrodantin] 50 mg PO HS Home Medications: Atenolol [Tenormin] 75 mg PO HS 12/28/16 [History] Cinnamon Bark [Cinnamon] 500 mg PO HS 12/28/16 [History] Donepezil [Aricept] 10 mg PO HS 12/28/16 [History] Memantine HCl 10 mg PO HS 12/28/16 [History] Pantoprazole Sodium [Protonix] 40 mg PO HS 12/28/16 [History] Sertraline [Zoloft] 50 mg PO HS 12/28/16 [History] Aspirin 81 mg PO HS 04/22/17 [History] Finasteride [Proscar] 5 mg PO DAILY 30 Days #30 tablet 03/24/19 [Rx] Metformin HCl 1,000 mg PO BIDWM 30 Days #60 tablet 03/24/19 [Rx] Tamsulosin [Flomax] 0.4 mg PO DAILY 30 Days #30 capsule 03/24/19 [Rx] Allergies/Adverse Reactions: Allergy/AdvReac Type Severity Reaction Status Date / Time No Known Allergies Allergy Verified 04/22/17 14:34 Date of admission: 03/21/19 02:12 Primary care physician: Danny Walker MD Consults: 03/20/19 23:13 Consult to Occupational Therapy [CONS] Stat Comment: Evaluate, develop and implement POC Reason for Consult: ptot eval Does patient have active BEDREST order?: No Is patient medically & hemodynamically stable?: Yes Patient assessed for mobility or mobilized this visit?: No Consult to Physical Therapy [CONS] Stat Comment: Evaluate, develop and implement POC Reason for Consult: ptot eval Does patient have active BEDREST order?: No Is patient medically & hemodynamically stable?: Yes Patient assessed for mobility or mobilized this visit?: No Consult to Dovetail Machine Operator [CONS] Stat Reason for SW Consult: placement, unable to be taken care of at home 03/22/19 15:22 Consult to Urology [CONS] Routine Consulting Provider: Urology Penny Reason for Consult: bladder calculus and CHIDI Call Completed: Yes Discharging clinician: Murphy Graff - Constitutional Vitals: Temp Pulse Resp BP Pulse Ox 98.3 F 65 16 104/69 95 03/24/19 07:05 03/24/19 08:00 03/24/19 07:05 03/24/19 07:05 03/24/19 07:05 Exam: General - nad Cardio - RRR, s1s2 , no murmur Lungs - CTAB, no wheezing/rhonchi/rales noted Abd - obese, soft, NTND, no guarding, no peritoneal signs, no rebound ext- moves all extremities equally, strength intact, no edema neuro - AOx3, no focal deficits - Patient Status Disposition: Transfer SNF Condition: Fair - Discharge Instructions Follow Up With: Danny Walker MD [Primary Care Provider] -
[2019-03-24] MEDS: Aspirin 81 MG TAB.CHEW PO SCH (20:38)
[2019-03-25] MEDS: Insulin LISPRO 300 UNITS/3 ML VIAL SQ SCH ×5 (00:40→21:00)
[2019-03-25] MEDS: Ampicillin 1,000 MG in 0.9 % Sodium Chloride Mini Bag 100 ML IVPB SCH ×2 (00:49→06:02)
[2019-03-25] MEDS: *HR* Heparin 5,000 UNIT/ML VIAL SQ SCH ×2 (06:06→17:25)
[2019-03-25] MEDS: Finasteride 5 MG TABLET PO SCH (08:00)
--- NOTE | 2019-03-25 10:59 | Internal Med Progress Note ---
Hospitalist Progress Note - Encounter Date of Encounter: 03/25/19 Time of Encounter: 10:56 - Subjective Interval History: Patient seen and examined this morning at bedside. No acute overnight events. Alert and oriented 2. Denies any new complaints. Denies any nausea vomiting diarrhea chest pain or shortness of breath. - Exam Vitals: Temp Pulse Resp BP Pulse Ox 98.0 F 65 18 97/47 95 03/25/19 09:57 03/25/19 09:57 03/25/19 09:57 03/25/19 09:57 03/25/19 09:57 Exam: General - nad Cardio - RRR, s1s2 , no murmur Lungs - CTAB, no wheezing/rhonchi/rales noted Abd - obese, soft, NTND, no guarding, no peritoneal signs, no rebound ext- moves all extremities equally, strength intact, no edema neuro - AOx2, no focal deficits - Assessment and Plan (1) Acute respiratory failure Current Visit: No Status: Acute (2) Elevated troponin Current Visit: No Status: Acute (3) UTI (urinary tract infection) Current Visit: No Status: Acute (4) Lactic acidosis Current Visit: Yes Status: Acute (5) Sepsis Current Visit: Yes Status: Acute (6) Dementia Current Visit: Yes Status: Acute (7) Goals of care, counseling/discussion Current Visit: Yes Status: Acute (8) T2DM (type 2 diabetes mellitus) Current Visit: Yes Status: Acute (9) Acute encephalopathy Current Visit: Yes Status: Acute (10) Obesity (BMI 30.0-34.9) Current Visit: Yes Status: Acute (11) Hypothyroid Current Visit: Yes Status: Acute (12) CHIDI (acute kidney injury) Current Visit: Yes Status: Acute - Summary of Assessment and Plan Summary of Assessment and Plan: Assessment Sepsis Lactic acidosis UTI Acute hypoxic respiratory failure Elevated troponin CHIDI- resolved Bladder calculus, UPJ obstruction Diabetes Dementia Obesity Hypothyroid BPH Septic and Metabolic encephelopathy DVT prophylaxis Plan - Sepsis resolved. Urine culture growing enterococcus faecalis. Change to by mouth Augmentin to finish 10 day course. - AMS resolved likely septic and metabolic encephelopathy on baseline dementia - Elevated troponin flat dynamics. Patient without chest pain and EKG without ischemia. Appears to be chronically elevated before. - CHIDI resolved with IV fluids 3 L. - Sliding scale insulin and Accu-Cheks for with diabetic diet - Continue Flomax and finasteride for BPH per urology. No surgical treatment for bladder calculus and right UPJ obstruction per urology as patient's doing well.. - Thyroid study unremarkable. - Discharge and Awaiting SNF placement. - Time Spent with Patient Total time spent is greater than 50% in coordination of care (as documented) at patient's floor/unit and/or counseling patient: Internal Medicine: Result - Labs CBC & Chem 7: 03/22/19 06:07 03/22/19 06:07 Consult Discharge Plan - Plan Referrals: Danny Walker MD [Primary Care Provider] - Prescriptions: Tamsulosin [Flomax] 0.4 mg PO DAILY 30 Days #30 capsule Metformin HCl 1,000 mg PO BIDWM 30 Days #60 tablet Finasteride [Proscar] 5 mg PO DAILY 30 Days #30 tablet (1) Acute respiratory failure Qualifiers: Respiratory failure complication: hypoxia Qualified Code(s): J96.01 - Acute respiratory failure with hypoxia (3) UTI (urinary tract infection) Qualifiers: Urinary tract infection type: site unspecified Hematuria presence: without hematuria Qualified Code(s): N39.0 - Urinary tract infection, site not specified (5) Sepsis Qualifiers: Sepsis type: sepsis due to unspecified organism Qualified Code(s): A41.9 - Sepsis, unspecified organism (6) Dementia Qualifiers: Dementia type: Alzheimer's disease Alzheimer's disease onset: unspecified onset Dementia behavioral disturbance: with behavioral disturbance Qualified Code(s): G30.9 - Alzheimer's disease, unspecified; F02.81 - Dementia in other diseases classified elsewhere with behavioral disturbance (8) T2DM (type 2 diabetes mellitus) Qualifiers: Diabetes mellitus fci insulin use: without fci use Diabetes mellitus complication status: without complication Qualified Code(s): E11.9 - Type 2 diabetes mellitus without complications (11) Hypothyroid Qualifiers: Hypothyroidism type: acquired Qualified Code(s): E03.9 - Hypothyroidism, unspecified
[2019-03-25] MEDS: Aspirin 81 MG TAB.CHEW PO SCH (21:04)
[2019-03-26 05:56] LABS: Mean Corpuscular HGB Conc 32.4 g/dL (31.6-35.5); Mean Corpuscular Hemoglobin 30.7 pg (28.0-33.3); Mean Corpuscular Volume 94.6 fL (83.0-100.0); Mean Platelet Volume 11.1 fL (9.4-12.4); Platelet Count 158 K/mcL (140-400); Red Blood Count 3.91 M/mcL (4.19-5.50); Red Cell Distribution Width 14.3 % (11.5-14.5)
[2019-03-26 06:15] LABS: BUN/Creatinine Ratio 20 (6-26); Blood Urea Nitrogen 21 mg/dL (8-23); Calcium 8.9 mg/dL (8.6-10.3); Carbon Dioxide 29 mEq/L (23-29); Chloride 101 mEq/L (98-107); Glucose 120 mg/dL (70-105); Osmolality,Calculated 286 (280-300); Potassium 4.3 mEq/L (3.5-5.1); Sodium 136 mEq/L (136-145); eGFR For Non-African Americans > 60 (> 60)
[2019-03-26] MEDS: *HR* Heparin 5,000 UNIT/ML VIAL SQ SCH ×2 (06:49→17:09)
[2019-03-26] MEDS: Insulin LISPRO 300 UNITS/3 ML VIAL SQ SCH ×4 (09:12→21:34)
[2019-03-26] MEDS: Finasteride 5 MG TABLET PO SCH (09:18)
--- NOTE | 2019-03-26 09:26 | Urology Progress Note ---
Date of Encounter: 03/26/19 Time of Encounter: 08:55 - Assessment and Plan (1) BPH (benign prostatic hyperplasia) Current Visit: Yes Status: Acute Assessment and plan: Patient is an 84-year-old male who presents with BPH. Patient continuing daily Flomax and finasteride, and he reports no voiding dysfunction at present. Plan to continue current therapy and follow up as an outpatient. Qualifiers: Lower urinary tract symptom presence: symptoms present Lower urinary tract symptom detail: weak urinary stream Qualified Code(s): N40.1 - Benign prostatic hyperplasia with lower urinary tract symptoms; R39.12 - Poor urinary stream (2) Bladder calculus Current Visit: Yes Status: Acute Assessment and plan: Patient is an 84-year-old male who presents with a bladder calculus. Patient reports no pain or gross hematuria, and he is voiding without difficulty. Patient wishes to monitor the calculus for now. We will discuss options for intervention as well as risks and benefits at outpatient follow-up. Progress Note Narrative: Patient seen and examined sitting upright in bed in no apparent distress. P atient reports he is voiding without difficulty. Patient denies any fever, chills, flank pain, dysuria or gross hematuria. Objective Initial Vital Signs Temp Pulse Resp BP Pulse Ox 95.6 F L 93 24 101/81 97 03/20/19 19:55 03/20/19 19:55 03/20/19 19:55 03/20/19 19:55 03/20/19 19:55 - General physical appearance Present: no distress, no pain - Respiratory Present: normal expansion, normal respiratory effort - Abdomen Present: soft, non tender - Genitourinary Urine Appearance: Present: Clear - Integumentary Present: no rash, no abnormal pigmentation - Musculoskeletal Present: normal posture - Psychiatric Present: oriented to time, oriented to person, oriented to place, speech is normal, memory intact - Labs 03/26/19 04:48 03/26/19 04:48 Diabetes panel 03/26/19 Range/Units 04:48 Sodium 136 (136-145) mEq/L Potassium 4.3 (3.5-5.1) mEq/L Chloride 101 (98-107) mEq/L Carbon Dioxide 29 (23-29) mEq/L BUN 21 (8-23) mg/dL Creatinine 1.04 (0.70-1.30) mg/dL Glucose 120 H (70-105) mg/dL Calcium 8.9 (8.6-10.3) mg/dL Calcium panel 03/26/19 Range/Units 04:48 Calcium 8.9 (8.6-10.3) mg/dL Pituitary panel 03/26/19 Range/Units 04:48 Sodium 136 (136-145) mEq/L Potassium 4.3 (3.5-5.1) mEq/L Chloride 101 (98-107) mEq/L Carbon Dioxide 29 (23-29) mEq/L BUN 21 (8-23) mg/dL Creatinine 1.04 (0.70-1.30) mg/dL Glucose 120 H (70-105) mg/dL Calcium 8.9 (8.6-10.3) mg/dL Adrenal panel 03/26/19 Range/Units 04:48 Sodium 136 (136-145) mEq/L Potassium 4.3 (3.5-5.1) mEq/L Chloride 101 (98-107) mEq/L Carbon Dioxide 29 (23-29) mEq/L BUN 21 (8-23) mg/dL Creatinine 1.04 (0.70-1.30) mg/dL Glucose 120 H (70-105) mg/dL Calcium 8.9 (8.6-10.3) mg/dL Consult Discharge Plan - Plan Referrals: Danny Walker MD [Primary Care Provider] - Prescriptions: Tamsulosin [Flomax] 0.4 mg PO DAILY 30 Days #30 capsule Metformin HCl 1,000 mg PO BIDWM 30 Days #60 tablet Finasteride [Proscar] 5 mg PO DAILY 30 Days #30 tablet
--- NOTE | 2019-03-26 20:44 | Internal Med Progress Note ---
Hospitalist Progress Note - Encounter Date of Encounter: 03/26/19 Time of Encounter: 20:39 - Subjective Interval History: Pt is a minimal historian due to history of dementia. He denies any fever, chills, N/V or nurse does not report diarrhea or SOB. - Exam Vitals: Temp Pulse Resp BP Pulse Ox 97.7 F 95 16 116/66 95 03/26/19 15:43 03/26/19 15:43 03/26/19 15:43 03/26/19 15:43 03/26/19 15:43 Exam: General - nad Cardio - RRR, s1s2 , no murmur Lungs - CTAB, no wheezing/rhonchi/rales noted Abd - obese, soft, NTND, no guarding, no peritoneal signs, no rebound ext- moves all extremities equally, strength intact, no edema neuro - AOx2, no focal deficits - Assessment and Plan (1) Sepsis Current Visit: Yes Status: Acute Assessment and Plan: Resolved Pt presents with AMS, "not acting like himself" per daughter - hx of chronic UTI, on macrobid x 4 years - sepsis secondary to likely UTI Evidence for UTI on UA: large leukocyte esterase, large blood, TNTC rbc/wbc, many squamous epithelial cells XR chest negative for acute process CT head (-) hemorrhage CT abdomen and pelvis Multiple clusters of bilateral renal calculi more pronounced on the right where there is also chronic hydronephrosis any UPJ obstruction is unchanged. New 7 mm bladder calculus. Stable appearance of circumferential bladder wall thickening, numerous bladder diverticula likely secondary to chronic bladder outlet obstruction from prostatomegaly ?granulomatous calcifications of liver/spleen EKG negative for ischemia Met sepsis criteria on admission for hypothermia t min of 95.6, HR >90, RR>20 and lactic acidosis Plan: - Was on rocephin now on Augmentin - blood cx final showed NGTD - urine cx so far showing Gram + cocci - Gentle hydration PRN - Was on maintanance fluid but 'Dc'ed. - consults: SW consulted, palliative care consulted, Urology consulted - Dispo: Daughter requesting POA assignment and placement (2) Acute respiratory failure Current Visit: No Status: Acute Assessment and Plan: Resolved. Likely secondary to sepsis. NOT on home oxygen, required 3 L NC here but now weaned to room air. (3) Elevated troponin Current Visit: No Status: Acute Assessment and Plan: Tropnoin 0.07 on admission, increased to 0.10. Will trend x 2 more. EKG showed SR no signs of ischemia. ECHO showed EF 60-65%. Denies active CP, SOB Troponin 0.07 --> 0.10 -->0.16 --> 0.15 --> 0.13. Upon review of prior troponin, it appears that pt has chronically elevated troponin levels. EKG PRN. Echo results below EV/EV echocardiogram w enhance Impressions: Technically sub-optimal due to poor echocardiographic windows. Many cardiac structures were not well visualized. LVEF 60-65%. Not all segments were well visualized, but overall function is normal. Normal LV chamber size. Mild left ventricular diastolic dysfunction. Right ventricle was not well visualized. Valves were not well visualized. (4) UTI (urinary tract infection) Current Visit: No Status: Acute Assessment and Plan: Has a hx of chronic UTI, on macrobid x 4 years with urine cx as above. Pt denies any hematuria/dysuria, however, he has advanced dementia and is a poor historian. See plan as above. (5) Lactic acidosis Current Visit: Yes Status: Acute Assessment and Plan: Lactic acid elevated at 6.1 on admission, improved to 2.3. and now within normal limits. Likely secondary to sepsis. Now appears euvolemic and hemodynamically stable. IV fluids discontinued and will continue to monitor. (6) Dementia Current Visit: Yes Status: Acute Assessment and Plan: Pt with hx of dementia. Continue home medications. (7) Goals of care, counseling/discussion Current Visit: Yes Status: Acute Assessment and Plan: PT/OT consulted and CM/SW working on placement. Daughter is Kisha phone #[phone] Son, Milton phone #[phone] (8) T2DM (type 2 diabetes mellitus) Current Visit: Yes Status: Acute Assessment and Plan: T2DM hx not on home diabetes medication. MDSS. ADA diet. On SQ long acting insulin. (9) Acute encephalopathy Current Visit: Yes Status: Acute Assessment and Plan: Likely secondary to progressive dementia vs UTI/sepsis. vs urinary obstruction vs lactic acidosis of 6. Lactic acid now within normal limits after IV fluids Monitor urine output. Follow-up urine cultures. Was on Rocephin but now no Augmentin Does not currently appear lethargic as was reported on arrival, possibly mental status improved with current therapy. (10) Obesity (BMI 30.0-34.9) Current Visit: Yes Status: Acute Assessment and Plan: BMI 31.5, chronic. (11) Hypothyroid Current Visit: Yes Status: Acute Assessment and Plan: TSH 8.805, not on home medications. Will check F T4 and T3 levels. If still abnormal, will consider starting on Levothyroxine. (12) CHIDI (acute kidney injury) Current Visit: Yes Status: Acute Assessment and Plan: Creatinine 1.41, near baseline - likely pre-renal from decreased PO intake, however, in the setting of sepsis/UTI - avoid nephrotoxins - CHIDI resolved, after IVF. 3 L Normal saline given so far. BMP PRN - Avoid nephrotoxic medications. CT showed new 7 mm stone, no other acute changes from prior study but chronic findings were noted. Seen by Urology and due to chronic nature of bladder calculus and multiple renal calculi will monitor for especially since they are non-obstructing. DVT Prophylaxis: Heparin - Time Spent with Patient Total time spent is greater than 50% in coordination of care (as documented) at patient's floor/unit and/or counseling patient: less than 15 minutes Plan of Care Discussed with: patient Internal Medicine: Result - Labs CBC & Chem 7: 03/26/19 04:48 03/26/19 04:48 Labs: Short CBC 03/26/19 Range/Units 04:48 WBC 5.0 (4.3-11.1) K/mcL Hgb 12.0 L (12.9-16.9) g/dL Hct 37.0 L (37.5-50.1) % Plt Count 158 (140-400) K/mcL BMP 03/26/19 04:48 Sodium 136 Potassium 4.3 Chloride 101 Carbon Dioxide 29 BUN 21 Creatinine 1.04 Glucose 120 H Calcium 8.9 Consult Discharge Plan - Plan Referrals: Danny Walker MD [Primary Care Provider] - Prescriptions: Tamsulosin [Flomax] 0.4 mg PO DAILY 30 Days #30 capsule Metformin HCl 1,000 mg PO BIDWM 30 Days #60 tablet Finasteride [Proscar] 5 mg PO DAILY 30 Days #30 tablet (1) Sepsis Qualifiers: Sepsis type: sepsis due to unspecified organism Qualified Code(s): A41.9 - Sepsis, unspecified organism (2) Acute respiratory failure Qualifiers: Respiratory failure complication: hypoxia Qualified Code(s): J96.01 - Acute respiratory failure with hypoxia (4) UTI (urinary tract infection) Qualifiers: Urinary tract infection type: site unspecified Hematuria presence: without hematuria Qualified Code(s): N39.0 - Urinary tract infection, site not specified (6) Dementia Qualifiers: Dementia type: Alzheimer's disease Alzheimer's disease onset: unspecified onset Dementia behavioral disturbance: with behavioral disturbance Qualified Code(s): G30.9 - Alzheimer's disease, unspecified; F02.81 - Dementia in other diseases classified elsewhere with behavioral disturbance (8) T2DM (type 2 diabetes mellitus) Qualifiers: Diabetes mellitus editor managing director insulin use: without editor managing director use Diabetes mellitus complication status: without complication Qualified Code(s): E11.9 - Type 2 diabetes mellitus without complications (11) Hypothyroid Qualifiers: Hypothyroidism type: acquired Qualified Code(s): E03.9 - Hypothyroidism, unspecified
[2019-03-26] MEDS: Aspirin 81 MG TAB.CHEW PO SCH (21:44)
[2019-03-27] MEDS: *HR* Heparin 5,000 UNIT/ML VIAL SQ SCH ×2 (05:59→17:16)
[2019-03-27 06:32] LABS: Hematocrit 37.7 % (37.5-50.1); Hemoglobin 12.2 g/dL (12.9-16.9); Mean Corpuscular HGB Conc 32.4 g/dL (31.6-35.5); Mean Corpuscular Hemoglobin 30.9 pg (28.0-33.3); Mean Corpuscular Volume 95.4 fL (83.0-100.0); Platelet Count 150 K/mcL (140-400); Red Blood Count 3.95 M/mcL (4.19-5.50); Red Cell Distribution Width 14.2 % (11.5-14.5)
[2019-03-27 06:52] LABS: BUN/Creatinine Ratio 23 (6-26); Blood Urea Nitrogen 23 mg/dL (8-23); Calcium 8.9 mg/dL (8.6-10.3); Carbon Dioxide 29 mEq/L (23-29); Chloride 103 mEq/L (98-107); Glucose 137 mg/dL (70-105); Osmolality,Calculated 288 (280-300); Potassium 4.4 mEq/L (3.5-5.1); Sodium 136 mEq/L (136-145); eGFR For Non-African Americans > 60 (> 60)
[2019-03-27] MEDS: Insulin LISPRO 300 UNITS/3 ML VIAL SQ SCH ×4 (07:38→21:50)
[2019-03-27] MEDS: Finasteride 5 MG TABLET PO SCH (08:08)
--- NOTE | 2019-03-27 14:59 | Internal Med Progress Note ---
Hospitalist Progress Note - Encounter Date of Encounter: 03/27/19 Time of Encounter: 11:10 - Subjective Interval History: awake, no family present, no complaints. denies fevers, chills, abd pain, back pain. n/v. - Exam Vitals: Temp Pulse Resp BP Pulse Ox 98.1 F 67 15 100/59 94 03/27/19 10:22 03/27/19 10:22 03/27/19 10:22 03/27/19 10:22 03/27/19 10:22 Exam: General - nad, awake, alert Cardio - RRR, s1s2 , no le edema Lungs - CTAB, no wheezing/rhonchi/rales noted, normal resp effort Abd - soft, NTND, no guarding, + bs neuro - AOx2, no focal deficits - Assessment and Plan (1) Sepsis Current Visit: Yes Status: Acute Assessment and Plan: Resolved - sepsis secondary to E Faecalis UTI Pt presents with AMS, "not acting like himself" per daughter - hx of chronic UTI, on macrobid x 4 years Evidence for UTI on UA: large leukocyte esterase, large blood, TNTC rbc/wbc, many squamous epithelial cells XR chest negative for acute process CT head (-) hemorrhage CT abdomen and pelvis Multiple clusters of bilateral renal calculi more pronounced on the right where there is also chronic hydronephrosis any UPJ obstruction is unchanged. New 7 mm bladder calculus. Stable appearance of circumferential bladder wall thickening, numerous bladder diverticula likely secondary to chronic bladder outlet obstruction from prostatomegaly ?granulomatous calcifications of liver/spleen Plan: - Was on rocephin now on Augmentin - blood cx final showed NGTD - urine cx E FAecalis - consults: SW consulted, palliative care consulted, Urology consulted and have since signed off, f/u with Dr Brar outpt - Dispo: Daughter requesting POA assignment and placement, awaiting placement (2) UTI (urinary tract infection) Current Visit: No Status: Acute Assessment and Plan: Has a hx of chronic UTI, on macrobid x 4 years See plan as above. (3) Elevated troponin Current Visit: No Status: Acute Assessment and Plan: Tropnoin 0.07 on admission, increased to 0.10. EKG showed SR no signs of ischemia. ECHO showed EF 60-65%. Denies active CP, SOB Troponin 0.07 --> 0.10 -->0.16 --> 0.15 --> 0.13. it appears that pt has chronically elevated troponin levels. EKG PRN. Echo results below EV/EV echocardiogram w enhance Impressions: Technically sub-optimal due to poor echocardiographic windows. Many cardiac structures were not well visualized. LVEF 60-65%. Not all segments were well visualized, but overall function is normal. Normal LV chamber size. Mild left ventricular diastolic dysfunction. Right ventricle was not well visualized. Valves were not well visualized. (4) Dementia Current Visit: Yes Status: Acute Assessment and Plan: Pt with hx of dementia. Continue home medications. (5) Goals of care, counseling/discussion Current Visit: Yes Status: Acute Assessment and Plan: PT/OT consulted and CM/SW working on placement. Daughter is Kisha phone #[phone] Son, Milton phone #[phone] (6) T2DM (type 2 diabetes mellitus) Current Visit: Yes Status: Acute Assessment and Plan: T2DM hx not on home diabetes medication. ADA diet. cont insulin regimen (7) Acute encephalopathy Current Visit: Yes Status: Resolved Assessment and Plan: Likely secondary to progressive dementia + UTI/sepsis. now back to baseline mental status (8) Obesity (BMI 30.0-34.9) Current Visit: Yes Status: Acute Assessment and Plan: BMI 31.5, chronic. (9) Hypothyroid Current Visit: Yes Status: Acute Assessment and Plan: TFTs 5/10 within normal limits he was not started on synthroid by previous provider as tsh recheck normal (10) CHIDI (acute kidney injury) Current Visit: Yes Status: Acute Assessment and Plan: resolved - likely pre-renal from decreased PO intake, however, in the setting of sepsis/UTI - avoid nephrotoxins - Avoid nephrotoxic medications. CT showed new 7 mm stone, no other acute changes from prior study but chronic findings were noted. Seen by Urology and due to chronic nature of bladder calculus and multiple renal calculi will monitor for especially since they are non-obstructing. (11) BPH (benign prostatic hyperplasia) Current Visit: Yes Status: Acute Assessment and Plan: cont home meds (12) Bladder calculus Current Visit: Yes Status: Acute Assessment and Plan: Urology has singed off pt decided to monitor march with Dr Brar on dc DVT Prophylaxis: SQ H - Time Spent with Patient Total time spent is greater than 50% in coordination of care (as documented) at patient's floor/unit and/or counseling patient: Plan of Care Discussed with: patient Internal Medicine: Result - Labs CBC & Chem 7: 03/27/19 05:59 03/27/19 05:59 Labs: Short CBC 03/27/19 Range/Units 05:59 WBC 4.3 (4.3-11.1) K/mcL Hgb 12.2 L (12.9-16.9) g/dL Hct 37.7 (37.5-50.1) % Plt Count 150 (140-400) K/mcL BMP 03/27/19 05:59 Sodium 136 Potassium 4.4 Chloride 103 Carbon Dioxide 29 BUN 23 Creatinine 0.98 Glucose 137 H Calcium 8.9 Consult Discharge Plan - Plan Referrals: Danny Walker MD [Primary Care Provider] - Prescriptions: Tamsulosin [Flomax] 0.4 mg PO DAILY 30 Days #30 capsule Metformin HCl 1,000 mg PO BIDWM 30 Days #60 tablet Finasteride [Proscar] 5 mg PO DAILY 30 Days #30 tablet (1) Sepsis Qualifiers: Sepsis type: sepsis due to unspecified organism Qualified Code(s): A41.9 - Sepsis, unspecified organism (2) UTI (urinary tract infection) Qualifiers: Urinary tract infection type: site unspecified Hematuria presence: without hematuria Qualified Code(s): N39.0 - Urinary tract infection, site not specified (4) Dementia Qualifiers: Dementia type: Alzheimer's disease Alzheimer's disease onset: unspecified onset Dementia behavioral disturbance: with behavioral disturbance Qualified Code(s): G30.9 - Alzheimer's disease, unspecified; F02.81 - Dementia in other diseases classified elsewhere with behavioral disturbance (6) T2DM (type 2 diabetes mellitus) Qualifiers: 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
[2019-03-27] MEDS: Aspirin 81 MG TAB.CHEW PO SCH (21:47)
[2019-03-28] MEDS: *HR* Heparin 5,000 UNIT/ML VIAL SQ SCH (06:15)
[2019-03-28] MEDS: Insulin LISPRO 300 UNITS/3 ML VIAL SQ SCH ×3 (09:33→17:50)
[2019-03-28] MEDS: Finasteride 5 MG TABLET PO SCH (10:02)
--- NOTE | 2019-03-28 11:05 | Internal Med Progress Note ---
Hospitalist Progress Note - Encounter Date of Encounter: 03/28/19 Time of Encounter: 11:05 - Subjective Interval History: Patient seen and examined this morning at bedside. No acute overnight events. Denies new complaints. Denies any chest pain and difficulty breathing constipation diarrhea or urinary difficulties. Afebrile and hemodynamically stable. - Exam Vitals: Temp Pulse Resp BP Pulse Ox 98.1 F 84 16 110/65 96 03/28/19 06:50 03/28/19 06:50 03/28/19 06:50 03/28/19 06:50 03/28/19 06:50 Exam: General - nad, awake, alert Cardio - RRR, s1s2 , no le edema Lungs - CTAB, no wheezing/rhonchi/rales noted, normal resp effort Abd - soft, NTND, no guarding, + bs neuro - AOx2, no focal deficits - Assessment and Plan (1) Elevated troponin Current Visit: No Status: Acute (2) UTI (urinary tract infection) Current Visit: No Status: Acute (3) Sepsis Current Visit: Yes Status: Acute (4) Dementia Current Visit: Yes Status: Acute (5) Goals of care, counseling/discussion Current Visit: Yes Status: Acute (6) T2DM (type 2 diabetes mellitus) Current Visit: Yes Status: Acute (7) Acute encephalopathy Current Visit: Yes Status: Resolved (8) Obesity (BMI 30.0-34.9) Current Visit: Yes Status: Acute (9) Hypothyroid Current Visit: Yes Status: Acute (10) CHIDI (acute kidney injury) Current Visit: Yes Status: Acute (11) Bladder calculus Current Visit: Yes Status: Acute (12) BPH (benign prostatic hyperplasia) Current Visit: Yes Status: Acute - Summary of Assessment and Plan Summary of Assessment and Plan: Assessment Sepsis Lactic acidosis UTI Acute hypoxic respiratory failure Elevated troponin CHIDI- resolved Bladder calculus, UPJ obstruction Diabetes Dementia Obesity Hypothyroid BPH Septic and Metabolic encephelopathy DVT prophylaxis Plan - Sepsis resolved. Urine culture growing enterococcus faecalis. On Augmentin to finish 10 day course. - AMS resolved likely septic and metabolic encephelopathy on baseline dementia - Elevated troponin flat dynamics. Patient without chest pain and EKG without ischemia. Appears to be chronically elevated before. - CHIDI resolved with IV fluids 3 L. - Sliding scale insulin and Accu-Cheks for with diabetic diet - Continue Flomax and finasteride for BPH per urology. No surgical treatment for bladder calculus and right UPJ obstruction per urology as patient's doing well.. - Discharged and Awaiting SNF placement. - Time Spent with Patient Total time spent is greater than 50% in coordination of care (as documented) at patient's floor/unit and/or counseling patient: Internal Medicine: Result - Labs CBC & Chem 7: 03/27/19 05:59 03/27/19 05:59 Consult Discharge Plan - Plan Referrals: Danny Walker MD [Primary Care Provider] - Prescriptions: Tamsulosin [Flomax] 0.4 mg PO DAILY 30 Days #30 capsule Metformin HCl 1,000 mg PO BIDWM 30 Days #60 tablet Finasteride [Proscar] 5 mg PO DAILY 30 Days #30 tablet (2) UTI (urinary tract infection) Qualifiers: Urinary tract infection type: site unspecified Hematuria presence: without hematuria Qualified Code(s): N39.0 - Urinary tract infection, site not specified (3) Sepsis Qualifiers: Sepsis type: sepsis due to unspecified organism Qualified Code(s): A41.9 - Sepsis, unspecified organism (4) Dementia Qualifiers: Dementia type: Alzheimer's disease Alzheimer's disease onset: unspecified onset Dementia behavioral disturbance: with behavioral disturbance Qualified Code(s): G30.9 - Alzheimer's disease, unspecified; F02.81 - Dementia in other diseases classified elsewhere with behavioral disturbance (6) T2DM (type 2 diabetes mellitus) Qualifiers: Diabetes mellitus half-way insulin use: without half-way use Diabetes mellitus complication status: without complication Qualified Code(s): E11.9 - T ype 2 diabetes mellitus without complications (9) Hypothyroid Qualifiers: Hypothyroidism type: acquired Qualified Code(s): E03.9 - Hypothyroidism, unspecified (12) BPH (benign prostatic hyperplasia) Qualifiers: Lower urinary tract symptom presence: symptoms present Lower urinary tract symptom detail: weak urinary stream Qualified Code(s): N40.1 - Benign prostatic hyperplasia with lower urinary tract symptoms; R39.12 - Poor urinary stream
[2019-03-28 15:11] VITALS: BP 129/77
--- NOTE | 2019-03-29 08:56 | Electrocardiograph Report ---
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
== END 2019-03-28 17:50 | DRG 871 ==
LOC: EMEROOARM 19:53 → 2NNU 19:53 → SUATTDRO 03-21 02:12 → 3NENU 03-25 09:42
PROVIDERS: ADMIT Internal Medicine; ATTEND Internal Medicine